=== PATIENT | female | born 1955 | race Caucasian/White ===

== ENCOUNTER 2020-02-02 19:58 | Inpatient (IN) | payer MEDICAID, SELFPAY ==
[2020-02-02 20:01] VITALS: BP 126/71; PULSE 104; RESP 32; TEMP 37.9; O2SAT 94; BMI 22.3
[2020-02-02 20:07] VITALS: BP 126/71; PULSE 105; RESP 32; TEMP 37.9; O2SAT 94
--- NOTE | 2020-02-02 20:07 | CM.ED ---
Social Work Responding to Stroke Alert. No family present. Dr. Funk inquiring about patient prior level of functioning. Patient noted to be a resident at [facility] in [place]. This psych social worker to call [facility] to obtain prior level of functioning. [facility] states that patient prior level of functioning is assist x1 for ambulating and is typically verbal. Xiomara states that patient was not verbal when leaving the correction to the ED and was noted to be weak on the right side. Xiomara states that patient family member, Mary is also aware and is coming to the ED. Updated Dr. Funk on above information. Mikaela Gates MSW, KASIE
[2020-02-02 20:10] VITALS: BMI 22.3
--- NOTE | 2020-02-02 20:20 | EKG12_ITS ---
Test Reason : STROKE Blood Pressure : / mmHG Vent. Rate : 105 BPM Atrial Rate : 105 BPM P-R Int : 126 ms QRS Dur : 086 ms QT Int : 304 ms P-R-T Axes : 054 082 151 degrees QTc Int : 401 ms Sinus tachycardia T wave abnormality, consider anterolateral ischemia Abnormal ECG Confirmed by FABIOLA KING ([id number]), associate editor SHIRLEY SOMERS ([id number]) on 02/07/2020 2:12:40 PM Referred By: SLOAN Confirmed By:FABIOLA KING
--- NOTE | 2020-02-02 20:20 | RAD_ITS ---
STUDY: X-RAY CHEST REASON FOR EXAM: Female, 64 years old. SUDDEN ONSET OF RIGHT SIDED FACIAL DROOP DECREASED VERBAL RESPONSE AND RIGHT SIDED WEAKNESS. TECHNIQUE: Single AP portable view of the chest. COMPARISON: None. FINDINGS: The lungs are clear and expanded. There is no demonstrated pleural abnormality. Normal size heart. Previous CABG. Pacemaker is seen with leads terminating in the right atrium and right ventricle.. Normal mediastinum and mag. Normal visualized pulmonary arteries. Normal visualized aortic arch and descending thoracic aorta. Normal visualized thoracic spine. Normal visualized ribs, clavicles, and shoulders. Limited visualization of the upper abdomen shows distended large bowel loops suggestive of ileus. RAD/Chest 1 View (Portable) IMPRESSION: No evidence for acute chest disease. Electronically Signed: Artem Bravo MD at 20:54 EDT , Service support ,
[2020-02-02 20:21] VITALS: BP 126/71; PULSE 101; RESP 34; TEMP 40; O2SAT 94
--- NOTE | 2020-02-02 20:21 | ED.DCSUM_ITS ---
History of Present Illness Chief Complaint: Neuro S/Sx Informant: Patient, Data Analysis Manager Onset: Days Current Severity: Mild Maximum Severity: Mild Narrative: The patient presents from nursing center with fatigue poor p.o. intake febrile illness all day, questionable right upper extremity worse than left upper extremity and facial droop There are concerns or information that she may have UTI, at baseline the patient is partially verbal she is almost full assist but can get up with walker The patient per assisted records has not tested positive for occult coronavirus nor has anyone at the center tested positive for coronavirus, it is not clear when the patient was last tested for coronavirus or the exact etiology of her febrile illness for a day or 2 Past Medical History - Allergies and Home Meds Allergies/Adverse Reactions: Allergies codeine Allergy (Verified 02/02/20 20:00) PT UNSURE OF REACTION diphenhydramine Allergy (Verified 02/02/20 20:00) PT UNSURE OF REACTION iodine Allergy (Verified 02/02/20 20:00) PT UNSURE OF REACTION Primary Care Physician: Dino Crenshaw MD [Primary Care Provider] - Past Medical History: - - He has multiple medical problems see above including cognitive decline Smoking Status: Unknown if ever smoked Review of Systems General: Reports: Fever. Denies: Chills, Sweats Eyes: Denies: Visual changes - bilaterally, Diplopia ENT: Denies: Rhinorrhea, Sore throat Cardiovascular: Denies: Chest pain, Palpitations Respiratory: Denies: Dyspnea, Cough, Dyspnea on exertion Gastrointestinal: Denies: Abdominal pain, Nausea, Vomiting, Diarrhea, Melena, Hematochezia Genitourinary: Denies: Dysuria, Hematuria, Frequency Musculoskeletal: Denies: Back pain, Extremity Pain Skin: Denies: Rash, Wounds Neurological: Denies: Headache, Weakness, Numbness Physical Exam Vital Signs/Narrative: Vital Signs Temp Pulse Resp BP Pulse Ox 02/02/20 20:07 100.2 F H 105 H 32 H 126/71 H 94 02/02/20 20:01 100.2 F H 104 H 32 H 126/71 H 94 General: Well nourished, Well developed, No Acute Distress, - - Patient is in no distress her temperature is 100.2 she is awake alert looking around the room she has no obvious facial droop her neck is supple her lungs are clear heart tones are unremarkable abdomen soft nontender she has able to hold both arms up without difficulty for the 5-second count, she cannot hold her legs up they both dropped immediately to the bed she apparently has history of lower extremity weakness and trouble walking she has no specific complaints of any kind abdomen chest unremarkable Head: Normocephalic, Atraumatic Eyes: Perrl, EOMI ENT: Moist mucous membranes, No rhinorrhea Neck: Supple, Nontender Cardiovascular: Regular rate, Regular rhythm, No murmurs Respiratory: No distress, CTA bilaterally, Chest nontender Abdomen: Soft, Nontender, Nondistended, Normal bowel sounds Back: Nontender, Normal Inspection Extremities: Nontender, No edema Skin: Normal color, No rash Neurological: Alert, Oriented x3, Cranial nerves II-XII grossly intact, Normal Strength, Normal Sensation Psychological: Normal affect, Normal Mood Diagnostic/Tx/Re-eval - Medical Decision Making Differential certainly extensive on this patient there is no obvious physical findings to suggest acute stroke she has had the fever for a day or 2 she was sent in because apparently she is less verbal and demonstrating more generalized weakness The patient's current temperature here in the emergency department is 104.0 IV fluids culture screening labs Given all the above screening labs will try determine when she was last tested for COVID COVID screen The assisted staff suggest that the fever began today, they do not recall when she was last tested for COVID but they report staff and other patients who have been tested always tested negative, they do report that the patient recently was treated for UTI due to discolored foul urine the nurse believes the antibiotics were stopped a few days ago, At this time given all the above the ED screen evaluation shows elevated white count, the urine shows subtle signs of UTI the chest X unremarkable, coronavirus screen is pending, she received IV fluids blood urine cultures IV antibiotics With the hospitalist they asked that a lactic acid level be obtained this was ordered they will check it and will arrange for admission to [facility] floor for further management Final impression febrile illness UTI generalized weakness, Admit stable ED Disposition - Plan for ED Patient: Diagnosis: Febrile illness UTI generalized weakness Referrals: Dino Crenshaw MD [Primary Care Provider] -
[2020-02-02] MEDS: 0.9% Normal Saline 1,000 ML 125 ML IV (20:25)
[2020-02-02] MEDS: Ceftriaxone 1 GM/50 ML BAG IV (20:28)
[2020-02-02 20:41] LABS: Mucous, Urine 0 SEEN /hpf (<or=2+); Red Blood Cells-Urine 0 SEEN /hpf (0-5); Squamous Epithelial Cells - UA 0 SEEN /hpf (5-10)
[2020-02-02 20:53] LABS: Absolute Lymphocyte Count 1.66 X10^3/uL (0.83-4.51); Absolute Neutrophil Count 13.5 X10^3/uL (2.0-7.7); Basophil# 0.06 X10^3/uL; Basophil% 0.4 % (0-1); Eosinophil# 0.04 X10^3/uL; Eosinophils% 0.3 % (0-5); Hematocrit 43.4 % (37-47); Hemoglobin 13.9 g/dL (12.0-15.0); Lymphocyte # 1.66 X10^3/ul (4.0); Lymphocyte % 10.5 % (19-41); Mean Corpuscular Hgb 27.9 pg (27.0-32.0); Mean Corpuscular Volume 87.1 fL (81-99); Monocyte# 0.52 X10^3/uL; Monocyte% 3.3 % (0-10); NRBC Flagged by Analyzer 0 % (0-5); Neutrophil % 84.9 % (47-70); Platelet Count 278 K/mm3 (150-450); RBC Distribution Width CV 14.6 % (11.6-14.6); RBC Distribution Width SD 46.4 fl (35.1-43.9); Red Blood Count 4.98 M/mm3 (4.2-5.4); White Blood Count 15.9 K/mm3 (4.4-11.0)
[2020-02-02 21:00] LABS: ALB/GLOB Ratio 0.8 RATIO (0.9-2.4); AST(SGOT) 14 U/L (15-37); Alanine Aminotransfer ALT/SGPT 20 U/L (13-56); Albumin, Serum 3.7 g/dL (3.2-5.0); Alkaline Phosphatase 113 U/L (45-117); Anion Gap 5 (5-15); BUN 27 mg/dL (7-18); BUN/Creat Ratio 18.4 RATIO (10-20); Bilirubin, Direct 0.17 mg/dL (0.00-0.30); Chloride 106 mmol/L (98-107); Creatinine, Serum 1.47 mg/dL (0.55-1.02); EST Glomerular Filtration Rate 38 mL/min (>60); Est Glom Filt Rate - Afr Amer 46 mL/min (>60); Estimated Creatinine Clearance 32.51 ml/min; Globulin 4.6 g/dL (2.2-4.2); Glucose 122 mg/dL (74-106); Lipase 83 U/L (73-393); Potassium 4.7 mmol/L (3.5-5.1); Protein, Total 8.3 g/dL (6.4-8.2); Sodium Level 135 mmol/L (136-145)
[2020-02-02 21:23] LABS: Color, Urine Yellow (Yellow); Glucose, Dipstick Normal (Normal); Ketone-Dipstick Negative (Negative); Leukocyte Esterase-Dipstick 25 /ul (Negative); Nitrite-Dipstick Negative (Negative); Occult Blood-Urine 10 /ul (Negative); Protein-Dipstick 15 mg/dl (Negative); Urine Bilirubin Dipstick Negative (Negative); Urine Clarity Sl. Cloudy (Clear); Urine Urobilinogen Normal (Normal)
[2020-02-02 21:42] LABS: Amorphous Sediment R; Bacteria 3+ /hpf (None Seen); White Blood Cells 5-10 SEEN /hpf (0-5)
--- NOTE | 2020-02-02 21:54 | HP.PCM_ITS ---
Problem List (1) Sepsis Status: Acute History of Present Illness Date of Admission: 02/02/20 Chief Complaint: fever The patient is a 64 year old F who lives at a fpc with a significant history of congestive heart failure who presents to the emergency department with fever. Reportedly his temperature at the fpc was 102 Fahrenheit. Also it was reported that patient had right-sided facial droop; right-sided weakness and decreased verbal response .Emergency department doctor and nurses who saw patient at emergency department denies noticing right-sided facial droop; and right-sided weakness Reportedly patient at baseline patient is partially verbal but she has become more nonverbal with the onset of her febrile illness. Also reportedly she is weak and fatigue. Coronavirus test done previously was negative. Reportedly residents at the [facility] where she lives at has tested negative for the coronavirus. Her urine was found to be abnormal at emergency department. Further, at the ED, she had a fever with a T-max of 104F and tachycardia as well as tachypnea. A stroke alert was initially called at emergency department but it was canceled. Past Medical History Medical History: Medical History (Last Reviewed 02/03/20 @ 03:[address] Guru Kendrick MD) Congestive heart failure I50.9 Allergies codeine Allergy (Verified 02/02/20 20:00) PT UNSURE OF REACTION diphenhydramine Allergy (Verified 02/02/20 20:00) PT UNSURE OF REACTION iodine Allergy (Verified 02/02/20 20:00) PT UNSURE OF REACTION Home Medications: Ambulatory Orders Medication Instructions Recorded Acetaminophen [Tylenol Extra 500 mg PO Q6H PRN PRN 02/02/20 Strength] Aspirin E.C. [Ecotrin] 81 mg PO DAILY@0800 02/02/20 Atorvastatin Calcium [Lipitor] 40 mg PO QHS 02/02/20 Baclofen 10 mg PO Q8H PRN PRN 02/02/20 Carvedilol [Coreg] 12.5 mg PO BIDCM 02/02/20 Cetirizine HCl [Zyrtec] 10 mg PO QHS 02/02/20 Docusate Sodium [Colace] 100 mg PO BID 02/02/20 Fluticasone 44 Mcg [Flovent (SP)] 2 puff INHALATION BID 02/02/20 Furosemide [Lasix] 20 mg PO DAILY 02/02/20 Guaifenesin [Mucinex] 600 mg PO BID 02/02/20 Mirtazapine [Remeron] 15 mg PO QHS 02/02/20 Oxybutynin [Ditropan] 5 mg PO TID 02/02/20 Pantoprazole Sodium [Protonix] 20 mg PO DAILY 02/02/20 Spironolactone [Aldactone] 25 mg PO DAILY 02/02/20 Venlafaxine HCl [Venlafaxine HCl 150 mg PO DAILY 02/02/20 ER] Albuterol Sulfate [Ventolin Hfa] 2 puff INHALATION Q6H PRN 02/03/20 Cepacol Sore Throat Lozenge 1 uyen PO Q2H PRN 02/03/20 Surgical History: pacemaker implantation - ICD placement, tonsillectomy, - - Tubal ligation; mitral valve prolapse operation; double bypass. Smoking Status: Former smoker - *Family History Maternal History Items: - - Unable to obtain since patient is confused. Paternal History Items: - - Unable to obtain since patient is confused. Review of Systems Unable to obtain accurate/complete ROS d/t: confusion. History was taken from ED doc and nurses VTE Information - Inpt Only VTE Present on Admission: No VTE Mechan Device Prophylaxis: None VTE Pharm Prophylaxis ordered?: Yes Patient Problems: Active and Suspected Problems (Last Reviewed 02/03/20 @ 03:[address] Guru Kendrick MD) Sepsis (Acute) - Physical Exam Vitals/I&O's: Vital Signs Temp Pulse Resp BP Pulse Ox 104.0 F H 101 H 34 H 126/71 H 94 02/02/20 20:21 02/02/20 20:21 02/02/20 20:21 02/02/20 20:21 02/02/20 20:21 Oxygen Delivery Method Room Air Weight: 58.9 kg Body Mass Index (BMI) 22.3 Finger Stick Blood Glucose 161 Intake and Output for Last 24 Hours 01/31/20 02/01/20 02/02/20 23:59 23:59 23:59 Intake Total 50 / 50 Balance 50 / 50 General: Alert, Confused - Patient knows her date of . But she is unable to explain why she is at the hospital., - HEENT: Atraumatic, PERRLA, EOMI, Normocephalic Neck: Supple, Trachea Midline Lungs: Clear to auscultation, Normal air movement, No rhonchi, No wheeze, No rales Cardiovascular: No murmurs, Tachycardic, - - Diminished Abdomen: Soft, Non Tender, Hypoactive Bowel Sounds, - - Globular Extremities: Capillary Refill Less than 3 Seconds, Edema - Right ankle Skin: No rashes, No breakdown Musculoskeletal: No Tenderness to Palpation of Joints or Extremities Neurological: Deep Tendon Reflexes 2+/4 and Symmetrical, Motor Exam 5/5 strength throughout, - - Can do [id number] test bilateral. The patient did not initiate [id number] test although she was instructed. Psych/Mental Status: Flat Affect Laboratory Results 02/02/20 20:03: WBC 15.9 H, RBC 4.98, Hgb 13.9, Hct 43.4, MCV 87.1, MCH 27.9, MCHC 32.0, RDW Std Deviation 46.4 H, RDW Coeff of Frantz 14.6, Plt Count 278, MPV 12.0, Immature Gran % (Auto) 0.600, Neut % (Auto) 84.9 H, Lymph % (Auto) 10.5 L, [place] % (Auto) 3.3, Eos % (Auto) 0.3, Baso % (Auto) 0.4, Absolute Neuts (auto) 13.5 H, Absolute Lymphs (auto) 1.66, Nucleated RBC % 0 02/02/20 20:03: Sodium 135 L, Potassium 4.7, Chloride 106, Carbon Dioxide 24.0, Anion Gap 5, BUN 27 H, Creatinine 1.47 H, Estim Creat Clear Calc 32.51, Est GFR (MDRD) Af Amer 46 L, Est GFR (MDRD) Non-Af 38 L, BUN/Creatinine Ratio 18.4, Glucose 122 H, Calcium 9.0, Total Bilirubin 0.60, Direct Bilirubin 0.17, AST 14 L, ALT 20, Alkaline Phosphatase 113, Total Protein 8.3 H, Albumin 3.7, Globulin 4.6 H, Albumin/Globulin Ratio 0.8 L, Lipase 83 02/02/20 20:15: Urine Color Yellow, Urine Clarity Sl. Cloudy, Urine pH 8.0, Ur Specific [place] 1.010, Urine Protein 15 H, Urine Glucose (UA) Normal, Urine Ketones Negative, Urine Occult Blood 10 H, Urine Nitrite Negative, Urine Bilirubin Negative, Urine Urobilinogen Normal, Ur Leukocyte Esterase 25 H, Urine RBC 0 SEEN, Urine WBC 5-10 SEEN, Ur Squamous Epith Cells 0 SEEN, Amorphous Sediment R, Urine Bacteria 3+, Urine Mucus 0 SEEN 02/02/20 20:46: COVID-19 (ELANA) Pending Current Medications Sodium Chloride () 1,000 mls @ 125 mls/hr IV .Q8H [facility] Last Admin: 02/02/20 20:25 Dose: 125 mls/hr Documented by: Sodium Chloride () 500 mls @ 999 mls/hr IV .Q31M [facility] Stop: 02/02/20 22:30 Assessment/Plan All Active Problems (Last Reviewed 02/03/20 @ 03:[address] Guru Kendrick MD) Sepsis (Acute) The patient is a 64 year old F who lives at a fpc with a significant history of congestive heart failure who presents to the emergency department with fever; altered mental status; was found to have a temperature of 104 Fahrenheit at emergency department; tachycardia; tachypnea and with abnormal urinalysis. Acute encephalopathy secondary to sepsis from acute cystitis Sirs criteria: White count of 15.9; T-max of 104 Fahrenheit; tachycardia with maximum heart rate of 105; tachypnea with much more respiratory rate rate of 34. Received ceftriaxone at emergency department Ceftriaxone ordered for inpatient. Received IV fluids in emergency department. Blood cultures ordered. Follow urine cultures ordered emergency department. Lactic acid ordered. Trend CBC GAIL Patient's creatinine was 1.47. From [facility]: Creatinine on 01-28-20 was 1.11; and on 08/14/2019 his creatinine was 1.65. Creatinine on 06/24/2019 was 1.16. BUN is 27. BUN over creatinine is 18.4. Received IV fluid bolus at emergency department; and then was started on maintenance infusion. Because of a history of congestive heart failure will hold off further IV fluids. We will hold off Lasix and spironolactone. Consider resuming Lasix and spironolactone when creatinine is stable. Trend BMP and make further determinations. History of congestive heart failure (combined systolic and diastolic heart failure) Per community records: Cardiology progress notes (Dr. Sylvia Wu) on 06/24/2019-patient's ejection fraction is in the 30s. On Lasix and spironolactone at the half-way. Hold at this time secondary to GAIL Coreg continued. Blood pressure parameters and heart rate parameters placed. ICD in place. DVT prophylaxis Subcutaneous heparin. Inpatient E&M: 63656 Init Hosp L3
--- NOTE | 2020-02-02 22:06 | ED.RN ---
SPOKE WITH DAUGHTER AND GAVE HER AN UPDATE ON PT MEDICAL CONDITION AND STATUS. DID NOT HAVE A ROOM ASSIGNMENT AT THE TIME OF CALL. SHE STATES SHE WILL CALL THE HOSPITAL IN THE MORNING TO FIND OUT MORE INFORMATION
[2020-02-02 22:28] LABS: Lactic Acid 1.2 mmol/L (0.4-1.9)
[2020-02-02] MEDS: Acetaminophen 500 MG Tablet 1000 MG PO (23:06)
[2020-02-02 23:13] VITALS: BP 115/64; PULSE 88; RESP 33; TEMP 38.9; O2SAT 97
[2020-02-02 23:39] LABS: Lactic Acid 1.3 mmol/L (0.4-1.9)
[2020-02-03] VITALS (10 sets, daily range): BP systolic 89–110; BP diastolic 41–68; PULSE 59–84; RESP 17–29; TEMP 36.8–38.3; O2SAT 94–97; BMI 20.5
[2020-02-03] MEDS: Oxybutynin 5 MG Tablet PO ×3 (05:11→21:08)
[2020-02-03] MEDS: Heparin Injection (Vial) 5,000 UNIT/ML VIAL 5000 UNIT SC ×3 (05:11→21:07)
[2020-02-03 06:28] LABS: Absolute Lymphocyte Count 2.55 X10^3/uL (0.83-4.51); Absolute Neutrophil Count 15.9 X10^3/uL (2.0-7.7); Basophil# 0.08 X10^3/uL; Basophil% 0.4 % (0-1); Eosinophil# 0.05 X10^3/uL; Eosinophils% 0.2 % (0-5); Hematocrit 38.2 % (37-47); Hemoglobin 11.8 g/dL (12.0-15.0); Lymphocyte # 2.55 X10^3/ul (4.0); Lymphocyte % 12.7 % (19-41); Mean Corp Hgb Conc 30.9 g/dL (32-36); Mean Corpuscular Hgb 27.9 pg (27.0-32.0); Mean Corpuscular Volume 90.3 fL (81-99); Mean Platelet Vol. 11.9 fl (6.2-12.0); Monocyte# 1.33 X10^3/uL; Monocyte% 6.6 % (0-10); NRBC Flagged by Analyzer 0 % (0-5); Neutrophil # 15.87 X10^3/uL (2.7-7.7); Neutrophil % 79.4 % (47-70); Platelet Count 226 K/mm3 (150-450); RBC Distribution Width SD 48.8 fl (35.1-43.9); Red Blood Count 4.23 M/mm3 (4.2-5.4)
[2020-02-03 06:54] LABS: Anion Gap 8 (5-15); BUN 27 mg/dL (7-18); BUN/Creat Ratio 23.1 RATIO (10-20); Calcium,Total 8.1 mg/dL (8.5-10.1); Chloride 108 mmol/L (98-107); Creatinine, Serum 1.17 mg/dL (0.55-1.02); EST Glomerular Filtration Rate 49 mL/min (>60); Est Glom Filt Rate - Afr Amer 59 mL/min (>60); Estimated Creatinine Clearance 42.93 ml/min; Glucose 133 mg/dL (74-106); Sodium Level 136 mmol/L (136-145)
[2020-02-03] MEDS: Budesonide Respules 0.5 MG/2 ML AMPUL.NEB. INHALATION ×2 (07:16→19:35)
[2020-02-03] MEDS: Carvedilol 12.5 MG Tablet PO (09:40)
[2020-02-03] MEDS: Docusate Sodium 100 MG Capsule PO ×2 (09:41→21:07)
[2020-02-03] MEDS: Acetaminophen 325 MG Tablet 650 MG PO ×2 (09:41→21:07)
[2020-02-03] MEDS: Pantoprazole Sodium 20 MG Tablet PO (09:41)
[2020-02-03] MEDS: Aspirin E.C. 81 MG Tablet PO (09:41)
[2020-02-03] MEDS: Venlafaxine XR 150 MG Capsule PO (09:42)
--- NOTE | 2020-02-03 10:51 | CASEMGMT ---
Addendum entered by Samantha Santos 02/03/20 14:13: SW also placed COVID screening tool on pt's chart. Addendum entered by Samantha Santos 02/03/20 11:02: SW also placed a call to pt's daughter November. November confirms pt is from [place] and will be returning at discharge. Original Note: Social Work Note Pt is listed as being from [place]. RAMANDEEP placed a call to Yosvany at [place]. 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 RAMANDEEP faxed updated clinicals to [place]. SW in to speak with pt. SW introduced self and role at [facility]. Pt is alert and orientated x3. Pt confirms that she is from [place], states he has been there since June and plans to return at discharge. Green sheet and transport form on pt's chart. Plan: Return to [place] once medically cleared Samantha Santos MSW, DRAFTER TOPOGRAPHICAL
[2020-02-03] MEDS: 0.9% Normal Saline 1,000 ML 100 ML IV ×2 (13:19→23:41)
[2020-02-03] MEDS: 0.9% Saline Lock 10 ML Syringe IV (13:19)
--- NOTE | 2020-02-03 16:29 | PN_ITS ---
Patient Problems: Active and Suspected Problems (Last Reviewed 02/03/20 @ 03:[address] Guru Kendrick MD) Sepsis (Acute) Subjective: Patient was seen and examined today, I talked briefly with a nurse at her detention facility to get some information about the patient's medical history. Patient has been a resident in a detention facility since last June due to inability of the patient to take care of her self. The source at the care home told me that the patient is shown signs of increased cognitive impairment over the last several weeks, for the most part she can respond appropriately but her memory is poor at times. Patient's blood pressure is been low today and her oral intake has been sparse, I decided to place the patient on IV fluids today and hold her diuretics. Patient's last elevated temperature was at 0041 this morning. Patient has no complaints of any shortness of breath or fever to this examiner. - Physical Exam Vitals/I&O's: Vital Signs Temp Pulse Resp BP Pulse Ox 98.4 F 59 L 20 H 94/41 L 96 02/03/20 15:18 02/03/20 15:18 02/03/20 15:18 02/03/20 15:18 02/03/20 15:18 Oxygen Flow Rate (L/min) 1.5 Oxygen Delivery Method Room Air Weight: 57.5 kg Body Mass Index (BMI) 20.5 Finger Stick Blood Glucose 161 Intake and Output for Last 24 Hours 02/01/20 02/02/20 02/03/20 23:59 23:59 23:59 Intake Total 550 / 550 1467.92 / 1467.92 Output Total 875 / 875 Balance 550 / 550 592.92 / 592.92 General: Alert, Oriented x3, Cooperative, No apparent distress, Well developed HEENT: Atraumatic, PERRLA, EOMI, Normocephalic Oral: Moist Mucosa Neck: Supple, No JVD, Trachea Midline, Thyroid Normal Size and Texture Lungs: Clear to auscultation, Normal air movement Cardiovascular: Regular rate, Regular Rhythm, Normal S1, Normal S2, No murmurs, PMI Normal Abdomen: Bowel Sounds Present, Soft, Non Tender, Non-Distended Extremities: No clubbing, No cyanosis, No edema, Capillary Refill Less than 3 Seconds Skin: No rashes, No breakdown Neurological: Cranial nerves II-XII grossly intact, Neuro grossly intact, Sensory exam intact to light touch and pain, Coordination normal Psych/Mental Status: Appropriate, Flat Affect, Alert and oriented to time, place, person, mood and affect Microbiology Past 72 Hours 02/02/20 20:15 Urine Catheter - Catheter Urine Culture - Preliminary Gram negative kb Laboratory Results 02/02/20 20:03: WBC 15.9 H, RBC 4.98, Hgb 13.9, Hct 43.4, MCV 87.1, MCH 27.9, MCHC 32.0, RDW Std Deviation 46.4 H, RDW Coeff of Rfantz 14.6, Plt Count 278, MPV 12.0, Immature Gran % (Auto) 0.600, Neut % (Auto) 84.9 H, Lymph % (Auto) 10.5 L, [place] % (Auto) 3.3, Eos % (Auto) 0.3, Baso % (Auto) 0.4, Absolute Neuts (auto) 13.5 H, Absolute Lymphs (auto) 1.66, Nucleated RBC % 0 02/02/20 20:03: Sodium 135 L, Potassium 4.7, Chloride 106, Carbon Dioxide 24.0, Anion Gap 5, BUN 27 H, Creatinine 1.47 H, Estim Creat Clear Calc 32.51, Est GFR (MDRD) Af Amer 46 L, Est GFR (MDRD) Non-Af 38 L, BUN/Creatinine Ratio 18.4, Glucose 122 H, Calcium 9.0, Total Bilirubin 0.60, Direct Bilirubin 0.17, AST 14 L, ALT 20, Alkaline Phosphatase 113, Total Protein 8.3 H, Albumin 3.7, Globulin 4.6 H, Albumin/Globulin Ratio 0.8 L, Lipase 83 02/02/20 20:03: Lactic Acid 1.2 02/02/20 20:15: Urine Color Yellow, Urine Clarity Sl. Cloudy, Urine pH 8.0, Ur Specific [place] 1.010, Urine Protein 15 H, Urine Glucose (UA) Normal, Urine Ketones Negative, Urine Occult Blood 10 H, Urine Nitrite Negative, Urine Bilirubin Negative, Urine Urobilinogen Normal, Ur Leukocyte Esterase 25 H, Urine RBC 0 SEEN, Urine WBC 5-10 SEEN, Ur Squamous Epith Cells 0 SEEN, Amorphous Sediment R, Urine Bacteria 3+, Urine Mucus 0 SEEN 02/02/20 20:46: COVID-19 (ELANA) Not Detected 02/02/20 23:05: Lactic Acid 1.3 02/03/20 05:54: WBC 20.0 H, RBC 4.23, Hgb 11.8 L, Hct 38.2, MCV 90.3, MCH 27.9, MCHC 30.9 L, RDW Std Deviation 48.8 H, RDW Coeff of Frantz 15.0 H, Plt Count 226, MPV 11.9, Immature Gran % (Auto) 0.700, Neut % (Auto) 79.4 H, Lymph % (Auto) 12. 7 L, [place] % (Auto) 6.6, Eos % (Auto) 0.2, Baso % (Auto) 0.4, Absolute Neuts (auto) 15.9 H, Absolute Lymphs (auto) 2.55, Nucleated RBC % 0 02/03/20 05:54: Sodium 136, Potassium 4.0, Chloride 108 H, Carbon Dioxide 20.0 L , Anion Gap 8, BUN 27 H, Creatinine 1.17 H, Estim Creat Clear Calc 42.93, Est GFR (MDRD) Af Amer 59 L, Est GFR (MDRD) Non-Af 49 L, BUN/Creatinine Ratio 23.1 H , Glucose 133 H, Calcium 8.1 L Current Medications Acetaminophen (Tylenol) 650 mg PO Q6H PRN PRN PRN Reason: Pain Score 1-10/Temp > 100.7 F Last Admin: 02/03/20 09:41 Dose: 650 mg Documented by: Aspirin (Ecotrin) 81 mg PO DAILY@0800 [facility] Last Admin: 02/03/20 09:41 Dose: 81 mg Documented by: Atorvastatin Calcium (Lipitor) 40 mg PO QHS [facility] Baclofen (Lioresal) 10 mg PO Q8H PRN PRN PRN Reason: Pain or Fever Budesonide (Pulmicort Aerosol) 0.5 mg INHALATION Q12H.RT [facility] Last Admin: 02/03/20 07:16 Dose: 0.5 mg Documented by: Carvedilol (Coreg) 12.5 mg PO BIDCM [facility] Last Admin: 02/03/20 15:53 Dose: Not Given Documented by: Dextrose (D50w Syringe) 0 gm IV X1 PRN; Protocol PRN Reason: Hypoglycemia Docusate Sodium (Colace) 100 mg PO BID [facility] Last Admin: 02/03/20 09:41 Dose: 100 mg Documented by: Glucagon () 1 mg IM .X1 PRN PRN Reason: Hypoglycemia Heparin Sodium (Porcine) (Heparin Na) 5,000 unit SC Q8 [facility] Last Admin: 02/03/20 15:29 Dose: 5,000 unit Documented by: Ceftriaxone Sodium (Rocephin) 1 gm in 50 mls @ 100 mls/hr IV Q24H [facility] Sodium Chloride () 250 mls @ 15 mls/hr IV .[id number] PRN PRN Reason: Saline Flush Sodium Chloride () 250 mls @ 15 mls/hr IV .[id number] PRN PRN Reason: Additional IVPB Infusion Sodium Chloride () 1,000 mls @ 100 mls/hr IV .Q10H [facility] Last Admin: 02/03/20 13:19 Dose: 100 mls/hr Documented by: Loratadine (Claritin) 10 mg PO QHS [facility] Mirtazapine (Remeron) 15 mg PO QHS [facility] Nutritional Formula (Lactose Free) (Ensure Enlive) 120 ml PO 4X/DAY [facility] Last Admin: 02/03/20 15:28 Dose: 120 ml Documented by: Ondansetron HCl (Zofran) 4 mg IV Q8H PRN PRN PRN Reason: NAUSEA/VOMITING Oxybutynin Chloride (Ditropan) 5 mg PO TID [facility] Last Admin: 02/03/20 15:29 Dose: 5 mg Documented by: Pantoprazole Sodium (Protonix) 20 mg PO DAILY [facility] Last Admin: 02/03/20 09:41 Dose: 20 mg Documented by: Sodium Chloride () 10 - 40 ml IV UD PRN PRN Reason: SALINE FLUSH Last Admin: 02/03/20 13:19 Dose: 10 ml Documented by: Venlafaxine HCl (Effexor Xr) 150 mg PO DAILY [facility] Last Admin: 02/03/20 09:42 Dose: 150 mg Documented by: Medical Necessity - Tobacco Use Smoking Status: Unknown if ever smoked Assessment/Plan All Active Problems (Last Reviewed 02/03/20 @ 03:[address] Guru Kendrick MD) Sepsis (Acute) #1 acute sepsis secondary to acute cystitis-patient will remain on Rocephin, urine culture is pending, recheck labs in the morning #2 ischemic cardiomyopathy #3 chronic kidney disease by history-it appears that the patient's baseline creatinine may be close to 1.1 according to notations in her medical record, I believe the patient may be slightly dehydrated, again she will be given fluids and her diuretics will be held. #4 chronic depression-patient is currently on antidepressants #5 atherosclerotic heart disease #6 generalized debility-etiology unclear #7 chronic obstructive lung disease #8 hyperlipidemia Inpatient E&M: 43597 Subs Hosp L2
[2020-02-03] MEDS: Ceftriaxone 1 GM/50 ML BAG IV (21:07)
[2020-02-03] MEDS: Mirtazapine 15 MG Tablet PO (21:08)
[2020-02-03] MEDS: Atorvastatin Calcium 40 MG Tablet PO (21:08)
[2020-02-04 03:20] VITALS: BP 112/64; PULSE 70; RESP 17; TEMP 36.9; O2SAT 93
[2020-02-04] MEDS: Oxybutynin 5 MG Tablet PO (05:09)
[2020-02-04] MEDS: Heparin Injection (Vial) 5,000 UNIT/ML VIAL 5000 UNIT SC (05:09)
[2020-02-04 06:39] LABS: Absolute Neutrophil Count 6.1 X10^3/uL (2.0-7.7); Basophil# 0.03 X10^3/uL; Basophil% 0.3 % (0-1); Eosinophil# 0.27 X10^3/uL; Eosinophils% 2.7 % (0-5); Hematocrit 32.5 % (37-47); Hemoglobin 9.9 g/dL (12.0-15.0); Mean Corp Hgb Conc 30.5 g/dL (32-36); Mean Corpuscular Hgb 28.2 pg (27.0-32.0); Mean Corpuscular Volume 92.6 fL (81-99); Monocyte# 0.54 X10^3/uL; Monocyte% 5.4 % (0-10); NRBC Flagged by Analyzer 0 % (0-5); Neutrophil # 6.13 X10^3/uL (2.7-7.7); Neutrophil % 61.2 % (47-70); Platelet Count 183 K/mm3 (150-450); RBC Distribution Width SD 50.2 fl (35.1-43.9); Red Blood Count 3.51 M/mm3 (4.2-5.4)
[2020-02-04 07:06] LABS: Anion Gap 5 (5-15); BUN 26 mg/dL (7-18); BUN/Creat Ratio 27.9 RATIO (10-20); Calcium,Total 7.5 mg/dL (8.5-10.1); Chloride 118 mmol/L (98-107); Creatinine, Serum 0.93 mg/dL (0.55-1.02); EST Glomerular Filtration Rate 64 mL/min (>60); Est Glom Filt Rate - Afr Amer 77 mL/min (>60); Estimated Creatinine Clearance 54.01 ml/min; Glucose 83 mg/dL (74-106); Potassium 3.9 mmol/L (3.5-5.1); Sodium Level 144 mmol/L (136-145)
[2020-02-04] MEDS: Budesonide Respules 0.5 MG/2 ML AMPUL.NEB. INHALATION (07:07)
[2020-02-04 07:08] VITALS: PULSE 62; RESP 18; O2SAT 92
[2020-02-04] MEDS: Docusate Sodium 100 MG Capsule PO (08:16)
[2020-02-04] MEDS: Aspirin E.C. 81 MG Tablet PO (08:16)
[2020-02-04] MEDS: Venlafaxine XR 150 MG Capsule PO (08:16)
[2020-02-04] MEDS: Pantoprazole Sodium 20 MG Tablet PO (08:16)
[2020-02-04] MEDS: Carvedilol 12.5 MG Tablet PO (08:16)
[2020-02-04 09:20] VITALS: BP 102/52; PULSE 69; RESP 18; TEMP 37.4; O2SAT 92
--- NOTE | 2020-02-04 09:22 | TREXTCAR_ITS ---
- Diet 02/03/20 00:56 Diet: Regular Diet Food consistency:: Regular Liquid Consistency:: Regular/Thin - Routine Orders/Code Status Code Status: Full Code - Suggestions for Active Care Change Position every (hours): 3 Hours to sit in a chair: 2 Times a day to sit in chair: 3 - Therapies Weight Bearing: Weight bearing as tolerated Physical Therapy: Eval and Treat Occupational Therapy: Eval and Treat - Allergies/Procedures Done in Hospital Allergies/Adverse Reactions: Allergies codeine Allergy (Verified 02/02/20 20:00) PT UNSURE OF REACTION diphenhydramine Allergy (Verified 02/02/20 20:00) PT UNSURE OF REACTION iodine Allergy (Verified 02/02/20 20:00) PT UNSURE OF REACTION - Type of Care/Length of Stay Estimated LOS: Convalescent Care Less Than 30 days Type of Care Needed: Skilled Rehab Potential: Good Prognosis: Good - Additional Orders/Day of Discharge H&P will serve as current which was dated: 02/02/20 Day of Discharge: 02/04/20 - Dietary and Speech Recommendations Dietitian Recommendations/Changes: Continue regular diet until adequate PO inta ke is established; then recommend cardiac diet d/t PMH of CHF. Will provide Ensure Enlive 120mL 4x/day d/t decreased PO intake and history of supplement consumption at home. - Follow Up Care Primary Care Physician: Dino Crenshaw MD [Primary Care Provider] - Please follow up with your Primary Care Physician in: 1-2 weeks.
[2020-02-04 09:23] VITALS: BP 102/52; PULSE 69; RESP 18; TEMP 37.4; O2SAT 92
--- NOTE | 2020-02-04 10:59 | PCM.DC.SUM ---
Discharge Date and Diagnosis - Problem List Patient Problems: Active and Suspected Problems (Last Reviewed 02/03/20 @ 03:[address] Guru Kendrick MD) Sepsis (Acute) Date of Admission: 02/02/20 Date of Discharge: 02/04/20 - Primary Discharge Diagnosis Acute Problems: Active Problems (Last Reviewed 02/03/20 @ 03:[address] Guru Kendrick MD) #1 Proteus mirabilis acute cystitis. #2 sepsis. Hospital Course and Treatment Imaging Results: Clinical Impression(s) from Imaging Studies Chest X-Ray 02/02/20 20:20 IMPRESSION: No evidence for acute chest disease. Electronically Signed: Artem Bravo MD at 20:54 EDT , Service support , Operations: None Procedures: None Summary of Care Provided: Patient seen and examined on the day of discharge and to be to be stable to be discharged back to the [facility]. She denied any complaints. Denied abdominal pain, nausea or vomiting. She has been afebrile. Her vital signs are stable. The patient is a 64 year old F presented to the emergency room because of fever, weakness and she was found to have sepsis secondary to acute cystitis. On admission, patient was found to have leukocytosis, creatinine of 1.47 in context of history of chronic kidney disease. She was found to have sepsis secondary to acute cystitis. Urinalysis revealed cloudy urine, there was 5-10 WBCs and 3+ bacteria. Chest x-ray showed no acute findings. COVID-19 PCR done and was negative. Patient was treated with IV Rocephin and IV fluids for acute cystitis. With treatment, her symptoms improved and she felt significantly better. She remained afebrile. Urine culture revealed Proteus mirabilis which was sensitive to Rocephin. Blood culture showed no growth up to the time of discharge. Patient discharged back to the retirement in a stable medical condition, discharged on ciprofloxacin 500 p.o. twice daily to complete total of 5 days of treatment, continued on her previous home medications without any changes, recommended 12 with PCP in 1 to 2 weeks. Patient Problems: Active and Suspected Problems (Last Reviewed 02/03/20 @ 03:[address] Guru Kendrick MD) Sepsis (Acute) - Physical Exam Vitals/I&O's: Vital Signs Temp Pulse Resp BP Pulse Ox 99.4 F H 69 18 102/52 L 92 02/04/20 09:20 02/04/20 09:20 02/04/20 09:20 02/04/20 09:20 02/04/20 09:20 Oxygen Flow Rate (L/min) 1.5 Oxygen Delivery Method Room Air Weight: 126 lb 12.253 oz Body Mass Index (BMI) 20.5 Finger Stick Blood Glucose 161 Intake and Output for Last 24 Hours 02/02/20 02/03/20 02/04/20 23:59 23:59 23:59 Intake Total 550 / 550 2504.59 / 2754.59 450 / 450 Output Total 875 / 1425 1175 / 1175 Balance 550 / 550 1629.59 / 1329.59 -725 / -725 General: Alert, Oriented x3, Cooperative, No apparent distress HEENT: Atraumatic, PERRLA, EOMI, Normocephalic Oral: Moist Mucosa, No Gingival or Mucosal Lesions/ Ulcerations Neck: Supple, No JVD, Negative Carotid Bruits, Trachea Midline, Thyroid Normal Size and Texture Lungs: Clear to auscultation, Normal air movement, No rhonchi, No wheeze, No rales Cardiovascular: Regular rate, Regular Rhythm, Normal S1, Normal S2, PMI Normal Abdomen: Bowel Sounds Present, Soft, Non Tender, Non-Distended, No Hepato-splenomegaly Extremities: No clubbing, No cyanosis, No edema Skin: No rashes, No breakdown Lymphatic: No Cervical, Supraclavicular, or Inguinal Adenopathy Neurological: Cranial nerves II-XII grossly intact, Neuro grossly intact Psych/Mental Status: Normal Affect, Appropriate Microbiology Past 72 Hours 02/02/20 20:15 Urine Catheter - Catheter Urine Culture - Final Proteus mirabilis Laboratory Results 02/04/20 06:16: WBC 10.0, RBC 3.51 L, Hgb 9.9 L, Hct 32.5 L, MCV 92.6, MCH 28.2, MCHC 30.5 L, RDW Std Deviation 50.2 H, RDW Coeff of Frantz 15.0 H, Plt Count 183, MPV 12.0, Immature Gran % (Auto) 0.400, Neut % (Auto) 61.2, Lymph % (Auto) 30.0, Dukes % (Auto) 5.4, Eos % (Auto) 2.7, Baso % (Auto) 0.3, Absolute Neuts (auto) 6.1, Absolute Lymphs (auto) 3.00, Nucleated RBC % 0 02/04/20 06:16: Sodium 144, Potassium 3.9, Chloride 118 H, Carbon Dioxide 21.0, Anion Gap 5, BUN 26 H, Creatinine 0.93, Estim Creat Clear Calc 54.01, Est GFR (MDRD) Af Amer 77, Est GFR (MDRD) Non-Af 64, BUN/Creatinine Ratio 27.9 H, Glucose 83, Calcium 7.5 L Current Medications Acetaminophen (Tylenol) 650 mg PO Q6H PRN PRN PRN Reason: Pain Score 1-10/Temp > 100.7 F Last Admin: 02/03/20 21:07 Dose: 650 mg Documented by: Aspirin (Ecotrin) 81 mg PO DAILY@0800 [facility] Last Admin: 02/04/20 08:16 Dose: 81 mg Documented by: Atorvastatin Calcium (Lipitor) 40 mg PO QHS [facility] Last Admin: 02/03/20 21:08 Dose: 40 mg Documented by: Baclofen (Lioresal) 10 mg PO Q8H PRN PRN PRN Reason: Pain or Fever Budesonide (Pulmicort Aerosol) 0.5 mg INHALATION Q12H.RT [facility] Last Admin: 02/04/20 07:07 Dose: 0.5 mg Documented by: [facility] Admin: 02/04/20 08:16 Dose: 12.5 mg Documented by: Docusate Sodium (Colace) 100 mg PO BID [facility] Last Admin: 02/04/20 08:16 Dose: 100 mg Documented by: Heparin Sodium (Porcine) (Heparin Na) 5,000 unit SC Q8 [facility] Last Admin: 02/04/20 05:09 Dose: 5,000 unit Documented by: Ceftriaxone Sodium (Rocephin) 1 gm in 50 mls @ 100 mls/hr IV Q24H [facility] Last Infusion: 02/03/20 21:37 Dose: Infused Documented by: Sodium Chloride () 250 mls @ 15 mls/hr IV .[id number] PRN PRN Reason: Saline Flush Sodium Chloride () 250 mls @ 15 mls/hr IV .[id number] PRN PRN Reason: Additional IVPB Infusion Sodium Chloride () 1,000 mls @ 100 mls/hr IV .Q10H [facility] Last Admin: 02/03/20 23:41 Dose: 100 mls/hr Documented by: Mirtazapine (Remeron) 15 mg PO QHS [facility] Last Admin: 02/03/20 21:08 Dose: 15 mg Documented by: Nutritional Formula (Lactose Free) (Ensure Enlive) 120 ml PO 4X/DAY [facility] Last Admin: 02/04/20 08:16 Dose: 120 ml Documented by: Ondansetron HCl (Zofran) 4 mg IV Q8H PRN PRN PRN Reason: NAUSEA/VOMITING Oxybutynin Chloride (Ditropan) 5 mg PO TID [facility] Last Admin: 02/04/20 05:09 Dose: 5 mg Documented by: Pantoprazole Sodium (Protonix) 20 mg PO DAILY [facility] Last Admin: 02/04/20 08:16 Dose: 20 mg Documented by: Sodium Chloride () 10 - 40 ml IV UD PRN PRN Reason: SALINE FLUSH Last Admin: 02/03/20 13:19 Dose: 10 ml Documented by: Venlafaxine HCl (Effexor Xr) 150 mg PO DAILY [facility] Last Admin: 02/04/20 08:16 Dose: 150 mg Documented by: Home Medications: Medications to take at Discharge Acetaminophen [Tylenol] 500 mg PO Q6H PRN PRN 02/02/20 Aspirin E.C. [Ecotrin] 81 mg PO DAILY@0800 02/02/20 Atorvastatin Calcium [Lipitor] 40 mg PO QHS 02/02/20 Baclofen 10 mg PO Q8H PRN PRN 02/02/20 Carvedilol [Coreg] 12.5 mg PO BIDCM 02/02/20 Cetirizine HCl [Zyrtec] 10 mg PO QHS 02/02/20 Docusate Sodium [Colace] 100 mg PO BID 02/02/20 Fluticasone 44 Mcg [Flovent 44 Mcg] 2 puff INHALATION BID 02/02/20 Furosemide [Lasix] 20 mg PO DAILY 02/02/20 Guaifenesin [Mucinex] 600 mg PO BID 02/02/20 Mirtazapine [Remeron] 15 mg PO QHS 02/02/20 Oxybutynin [Ditropan] 5 mg PO TID 02/02/20 Pantoprazole Sodium [Protonix] 20 mg PO DAILY 02/02/20 Spironolactone [Aldactone] 25 mg PO DAILY 02/02/20 Venlafaxine HCl [Venlafaxine HCl ER] 150 mg PO DAILY 02/02/20 Albuterol Sulfate [Ventolin Hfa] 2 puff INHALATION Q6H PRN 02/03/20 Cepacol Sore Throat Lozenge 1 uyen PO Q2H PRN 02/03/20 Ciprofloxacin [Cipro] 500 mg PO BID #8 tab 02/04/20 Following Prescrptions Were Given to Patient: Ciprofloxacin [Cipro] 500 mg PO BID #8 tab Prescription Printed Primary Care Physician: Dino Crenshaw MD [Primary Care Provider] - Please follow up with your Primary Care Physician in: 1-2 weeks. [facility]position: [facility] facility Minutes spent on discharge:: 28 Medical Necessity - Tobacco Use Smoking Status: Unknown if ever smoked Meaningful Use Info Meaningful Use Diagnoses (Choose all that apply): None applicable Inpatient E&M: 05866 Disch Hosp
--- NOTE | 2020-02-04 12:11 | NURSING ---
REPORT CALLED TO PATRICIA @ [facility]
== END 2020-02-04 13:20 | disposition skilled nursing facility (03) | DRG 720 ==
LOC: ED 20:51 → ICU 23:23 → MS3 02-03 07:17
PROVIDERS: Internal Medicine; Admitting Provider Hospitalist; Emergency Provider Emergency Medicine; PCP Family Medicine; Visit Provider Hospitalist
DX: A41.9 Sepsis, unspecified organism (principal); N30.00 Acute cystitis without hematuria; B96.4 Proteus (mirabilis) (morganii) as the cause of diseases classified elsewhere; Z79.82 Long term (current) use of aspirin; Z79.51 Long term (current) use of inhaled steroids; Z87.891 Personal history of nicotine dependence; G93.41 Metabolic encephalopathy; N17.9 Acute kidney failure, unspecified; I50.42 Chronic combined systolic (congestive) and diastolic (congestive) heart failure; Z95.810 Presence of automatic (implantable) cardiac defibrillator; I25.5 Ischemic cardiomyopathy; F32.9 Major depressive disorder, single episode, unspecified; I25.10 Atherosclerotic heart disease of native coronary artery without angina pectoris; R53.81 Other malaise; J44.9 Chronic obstructive pulmonary disease, unspecified; E78.5 Hyperlipidemia, unspecified
CPT/HCPCS: 36415; 51702; 71045; 80048; 80053; 80076; 81001; 83605; 83690; 85025; 87040; 87077; 87086; 87088; 87186; 87635; 93005; 94640; 97116; 97162; 97166; 99285; G2023; J7030; J7040; A4216; U0003

== ENCOUNTER 2020-02-29 09:05 | Inpatient (IN) | payer MEDICAID, SELFPAY ==
[2020-02-03 00:54] VITALS: BMI 20.5
[2020-02-29] VITALS (17 sets, daily range): BP systolic 106–145; BP diastolic 65–105; PULSE 55–150; RESP 12–24; TEMP 35.9–36.9; O2SAT 92–95; BMI 21.6; BMI 20.2
--- NOTE | 2020-02-29 09:08 | EKG12_ITS ---
Test Reason : Blood Pressure : / mmHG Vent. Rate : 073 BPM Atrial Rate : 394 BPM P-R Int : 160 ms QRS Dur : 084 ms QT Int : 398 ms P-R-T Axes : -63 074 113 degrees QTc Int : 438 ms Atrial-paced rhythm with premature ventricular or aberrantly conducted complexes Low voltage QRS ST & T wave abnormality, consider anterolateral ischemia Abnormal ECG Confirmed by FABIOLA KING ([id number]), index editor ALONDRA SNYDER ([id number]) on 03/02/2020 11:15:54 AM Referred By: YESSI Confirmed By:FABIOLA KING
--- NOTE | 2020-02-29 09:08 | RAD_ITS ---
STUDY: X-RAY CHEST REASON FOR EXAM: Female, 64 years old. RIGHT SIDED WEAKNESS TECHNIQUE: Single AP portable view of the chest. COMPARISON: Comparison is made with prior study 02-02-20. FINDINGS: EKG electrodes are seen. Hyperinflation. Stable increased markings at the right lung apex suggestive of scarring. There is no demonstrated pleural abnormality. Sternal cerclage wires and vascular clips are present from a prior sternotomy and coronary artery bypass graft procedure (CABG). A left-sided ICD is seen. Normal mediastinum and mag. Normal visualized pulmonary arteries. There is atherosclerotic calcification of the aortic arch with tortuosity. Normal visualized thoracic spine. Normal visualized ribs, clavicles, and shoulders. There is no demonstrated abnormality of the visualized soft tissue structures of the upper abdomen. RAD/Chest 1 View IMPRESSION: No acute abnormality is seen. Electronically Signed: Gamal Tom, at 10:41 EDT , Service support ,
--- NOTE | 2020-02-29 09:10 | CT_ITS ---
STUDY: CTA HEAD AND NECK WITH CONTRAST REASON FOR EXAM: Female, 64 years old. CVA, STROKE SYMPTOMS RADIATION DOSAGE (If Supplied By Facility): CTDIvol = ( 13.78 ) mGy, DLP = ( 415.77 ) mGycm TECHNIQUE: CT angiography was performed with a multi-detector CT scanner. Data acquisition was obtained from the skull base through the vertex following intravenous administration of 100 CC ISOVUE 370. MIP images were reconstructed from the axial data set. Post-processing of the angiographic images was performed, with multiplanar reformation and 3D reconstruction. Individualized dose optimization techniques were used for this CT. COMPARISON: No relevant priors. FINDINGS: Normal bilateral petrous carotid arteries. There is calcified plaque formation of the right cavernous carotid artery, without a cross-sectional luminal stenosis. There is calcified plaque formation of the left cavernous carotid artery, without a cross-sectional luminal stenosis. Normal right A1 segments of the anterior cerebral artery. Normal left A1 segments of the anterior cerebral artery. Normal intact anterior communicating artery (ACOM). Normal bilateral A2 segments of the anterior cerebral arteries. Normal right M1 and M2 segments of the middle cerebral arteries, with a normal M1 bifurcation. Normal left M1 and M2 segments of the middle cerebral arteries, with a normal M1 bifurcation. Normal right posterior communicating artery (PCOM). Normal left posterior communicating artery (PCOM). Normal bilateral vertebral arteries. Normal basilar artery with a normal basilar bifurcation. The visualized bilateral superior cerebellar (SCA) arteries are normal. Normal bilateral P1, P2 and visualized P3 segments of the posterior cerebral arteries. There is no demonstrated aneurysm of the [place] of [place]. AORTIC ARCH: There is atherosclerotic calcific plaque formation of the aortic arch and great vessels arising from the aortic arch, without a hemodynamically significant stenosis. There is a normal origin of the brachiocephalic, left common carotid, and left subclavian arteries. There is evidence of a prior CABG. RIGHT CAROTID ARTERIES: Normal right common carotid artery (CCA). Normal right common carotid bulb. There is mild atherosclerotic plaque formation of the origin of the right internal carotid artery with less than 50% cross sectional diameter stenosis. Normal visualized cervical portion of the right internal carotid artery. Normal origin of the right external carotid artery (ECA). LEFT CAROTID ARTERIES: Normal left common carotid artery (CCA). Normal left common carotid bulb. There is mild atherosclerotic plaque formation of the origin of the left internal carotid artery with less than 50% cross sectional diameter stenosis. Normal visualized cervical portion of the left internal carotid artery. Normal origin of the left external carotid artery (ECA). VERTEBRAL ARTERIES: Normal bilateral vertebral arteries. CT/CTA Head AND Neck W/ Contrast IMPRESSION: Calcific plaque at the origin of the right and left internal carotid arteries causing less than percent stenosis. N.B. : The above information has been verbally conveyed by Gamal Tom to EDI DICKSON on 02/29/2020 09:36:14 (ET). Electronically Signed: Gamal Tom, at 9:37 EDT , Service support ,
--- NOTE | 2020-02-29 09:10 | CT_ITS ---
STUDY: CT BRAIN WITHOUT CONTRAST REASON FOR EXAM: Female, 64 years old. STROKE RADIATION DOSAGE (If Supplied By Facility): CTDIvol = ( 44.99 ) mGy, DLP = ( 762.36 ) mGycm TECHNIQUE: Transaxial CT imaging of the brain was performed without administration of intravenous contrast material. Individualized dose optimization techniques were used for this CT. COMPARISON: No relevant priors. FINDINGS: Normal soft tissue structures. Normal calvarium. There is mild cerebral atrophy with widening of the extra-axial spaces and ventricular dilatation. There are areas of decreased attenuation within the white matter tracts of the supratentorial brain, consistent with microvascular disease changes. Focal area of encephalomalacia in keeping with old infarction in the left frontotemporal lobe measuring 3.1 cm x 3.3 cm. Normal basal ganglia and thalami. Normal brainstem. Normal cerebellum. There is no intracranial hemorrhage. There are no findings of an acute ischemic infarction. Atherosclerotic calcification of the cavernous portions of the internal carotid arteries bilaterally. Normal visualized paranasal sinuses. CT/Brain/Head without Contrast IMPRESSION: Chronic involutional changes of the brain. N.B. : The above information has been verbally conveyed by Gamal Tom to EDI DICKSON on 02/29/2020 09:22:34 (ET). Electronically Signed: Gamal Tom, at 9:23 EDT , Service support ,
--- NOTE | 2020-02-29 09:13 | ED.VIS.GEN ---
History of Present Illness Chief Complaint: Neuro S/Sx Informant: Patient, SNF Narrative: Patient is a 64-year-old female the past medical history of ischemic cardiomyopathy who presents to the emergency department for right-sided weakness and slurred speech. The history is given by her nurse at the nursing facility. She was the daytime nurse and went to check on her at 8:30 AM this morning. At that time she noted that she had right-sided weakness and was not speaking well. The report that she got was from the night nurse at signout at 6 or 630 this morning. She is not sure if she checked on her at that time but there was apparently no changes passed along. She normally speaks very clearly. She can normally ambulate but with a walker. Upon arrival to the emergency department her right arm is slightly contracted. The nurse states that this is not her baseline. They do not know of any history of strokes in the past. She is not on any anticoagulation except for an aspirin daily. I did review her past medical records which she was in the hospital earlier this month. Sounds like she did have some of the same symptoms at that time but not quite as severe as she does now. She was seen for a fever at that time and has a negative for the coronavirus. Past Medical History - Allergies and Home Meds Allergies/Adverse Reactions: Allergies codeine Allergy (Verified 02/29/20 09:15) PT UNSURE OF REACTION diphenhydramine Allergy (Verified 02/29/20 09:15) PT UNSURE OF REACTION iodine Allergy (Verified 02/29/20 09:15) PT UNSURE OF REACTION Primary Care Physician: Dino Crenshaw MD [Primary Care Provider] - Prior records reviewed: Yes Past Medical History: - - Ischemic cardiomyopathy, hypertension Surgical History: pacemaker implantation - ICD placement, tonsillectomy, - - Tubal ligation; mitral valve prolapse operation; double bypass. Lives: [facility] Smoking Status: Unknown if ever smoked - Family History Maternal Family History: Reports: - - Unable to obtain since patient is confused. Paternal Family History: Reports: - - Unable to obtain since patient is confused. Review of Systems ROS: Unable to Obtain - Patient does not answer questions about review of system. ENT: Denies: Rhinorrhea, Sore throat Respiratory: Denies: Dyspnea on exertion Physical Exam Inital Vital Signs reviewed: Yes General: Well nourished, Well developed Head: Atraumatic, - - Facial droop on the right Eyes: Perrl, EOMI ENT: Moist mucous membranes Neck: Supple Cardiovascular: Regular rate, Regular rhythm, No murmurs Respiratory: No distress, CTA bilaterally Abdomen: Soft, Nontender, Nondistended Back: Nontender Extremities: - - Right arm contracted but able to hold up against gravity.. Negative for: No edema, Tenderness Skin: Normal color Neurological: Alert, - - Patient does have slurred speech but answers questions appropriately. Right arm contracted but does hold up against gravity. Right leg she does not have strength against gravity. Has aphasia and dysarthria for NIH score of 10. Diagnostic/Tx/Re-eval - EKG Initial EKG Interpretation: - - Patient's EKG is limited by artifact. Unfortunately due to her tension in the right arm and shaking her left arm we were unable to get a better rhythm strip. But this shows a rate of 73 bpm. Normal intervals. Normal axis. No appreciable significant ST elevations. EKG for comparison was performed on February 02, 2020. - Medical Decision Making Patient presents to the emergency department for strokelike symptoms with right-sided weakness, and speech issues. Unfortunately we are not able to get a time for her last known well as the nurse received signout and checked on her at 830. They are not sure what time she went to sleep either. Patient states she was doing fine last night. She does answer some questions during the exam but ignores others. She does seem to have dysarthria and aphasia. She does have complete weakness of the right lower extremity. Follow some commands but not others. She does have a mild facial droop on the right. Due to this we gave her an NIH score of 10. Tele-stroke did evaluate her but due to unknown well she is not a TPA candidate. CT angios obtained to evaluate for LVO. She did have a iodine allergy and will treat with Solu-Medrol. She has a Benadryl allergy so we will avoid this as well. Tele-stroke did evaluate the patient. But due to the last unknown while she is not a TPA candidate. No large vessel occlusion seen on CT scan. Will bring her into the hospital for further evaluation and management this time. Lab work showed mildly low calcium but otherwise no significant abnormality. Chest x-ray did not show any evidence of consolidation. Patient's daughter, November was updated on patient's status. ED Disposition - Plan for ED Patient: Disposition: Acute Care [facility] Diagnosis: CVA (cerebral vascular accident), Dysarthria, Aphasia, Right sided weakness, Hypocalcemia Referrals: Dino Crenshaw MD [Primary Care Provider] -
[2020-02-29 09:38] LABS: Absolute Lymphocyte Count 2.28 X10^3/uL (0.83-4.51); Absolute Neutrophil Count 7.8 X10^3/uL (2.0-7.7); Basophil# 0.04 X10^3/uL; Basophil% 0.3 % (0-1); Eosinophil# 0.31 X10^3/uL; Eosinophils% 2.7 % (0-5); Hematocrit 36.1 % (37-47); Hemoglobin 11.3 g/dL (12.0-15.0); Lymphocyte # 2.28 X10^3/ul (4.0); Lymphocyte % 19.7 % (19-41); Mean Corp Hgb Conc 31.3 g/dL (32-36); Mean Corpuscular Hgb 28.5 pg (27.0-32.0); Mean Corpuscular Volume 91.2 fL (81-99); Mean Platelet Vol. 12.2 fl (6.2-12.0); Monocyte% 8.7 % (0-10); NRBC Flagged by Analyzer 0 % (0-5); Neutrophil # 7.82 X10^3/uL (2.7-7.7); Neutrophil % 67.7 % (47-70); Platelet Count 160 K/mm3 (150-450); RBC Distribution Width CV 16.3 % (11.6-14.6); RBC Distribution Width SD 53.7 fl (35.1-43.9); Red Blood Count 3.96 M/mm3 (4.2-5.4); White Blood Count 11.6 K/mm3 (4.4-11.0)
[2020-02-29] MEDS: MethylPREDNISolone 125 MG/2 ML Vial IV (09:48)
[2020-02-29 09:55] LABS: Anion Gap 4 (5-15); BUN 38 mg/dL (7-18); BUN/Creat Ratio 38.2 RATIO (10-20); Calcium,Total 7.7 mg/dL (8.5-10.1); Chloride 104 mmol/L (98-107); EST Glomerular Filtration Rate 59 mL/min (>60); Est Glom Filt Rate - Afr Amer 72 mL/min (>60); Estimated Creatinine Clearance 51.81 ml/min; Glucose 86 mg/dL (74-106); Sodium Level 137 mmol/L (136-145)
[2020-02-29 10:00] LABS: International Normalized Ratio 1.1; Partial Thromboplast Time 24.9 Seconds (24.1-36.2); Prothrombin Time (Protime)PT. 14.1 SECONDS (11.7-14.9)
--- NOTE | 2020-02-29 10:59 | PCM.HP.STD ---
Problem List (1) Status post implantation of automatic cardioverter/defibrillator (AICD) Status: Chronic (2) Status post coronary artery bypass graft Status: Chronic (3) Coronary artery disease Status: Chronic (4) Stage III chronic kidney disease Status: Chronic (5) Depression Status: Chronic (6) Hyperlipidemia Status: Chronic (7) COPD (chronic obstructive pulmonary disease) Status: Chronic (8) GERD (gastroesophageal reflux disease) Status: Chronic (9) Chronic combined systolic and diastolic CHF (congestive heart failure) Status: Chronic (10) CVA (cerebral vascular accident) Status: Acute History of Present Illness Date of Admission: 02/29/20 Chief Complaint: Right-sided weakness, slurred speech. The patient is a 64 year old F with past medical history as mentioned above presented to the emergency room from the skilled nursing because of right-sided body weakness and slurred speech. The patient is very poor informant, not able to provide good history and she was able to say a couple of words coherently. She is dysarthric and sometimes aphasic. According to the ER physician, patient was brought from the skilled nursing this morning because of right side body weakness that started around 830 this morning and nursing staff mentioned that she was not speaking well, her speech was slurred. They were not able to pinpoint what time was patient seen well last time. They mentioned that patient is normally speaks clearly and ambulate with a walker. She had a history of chronic systolic and diastolic CHF, status post ICD and currently, it is compensated and she is clinically stable. She had a history of COPD and she has been on bronchodilators but not on home oxygen. She will history of stage III chronic kidney disease and kidney function has been stable. Upon arrival to the emergency department, her vital signs were stable. According to ER physician, her NIH stroke scale was 10. Her routine blood work was remarkable for mild leukocytosis, hemoglobin of 11.3 g/dL and her calcium was 7.7 mg/dL. EKG revealed paced rhythm, no acute changes. Troponin was negative. CT brain without contrast showed no acute findings. CTA of the head and neck revealed calcific plaque at the origin of the right and left internal carotid artery causing less than 50% stenosis. Chest x-ray showed no acute findings. She is being admitted for acute stroke for evaluation and treatment. Past Medical History Past Medical History (Chronic Problems): Chronic Problems (Last Reviewed 02/03/20 @ 03:[address] Guru Kendrick MD) Status post implantation of automatic cardioverter/defibrillator (AICD) (Chronic) Status post coronary artery bypass graft (Chronic) Coronary artery disease (Chronic) Stage III chronic kidney disease (Chronic) Depression (Chronic) Hyperlipidemia (Chronic) COPD (chronic obstructive pulmonary disease) (Chronic) GERD (gastroesophageal reflux disease) (Chronic) Chronic combined systolic and diastolic CHF (congestive heart failure) (Chronic) Medical History: Medical History (Last Reviewed 02/03/20 @ 03:[address] Guru Kendrick MD) Congestive heart failure I50.9 Allergies codeine Allergy (Verified 02/29/20 09:15) PT UNSURE OF REACTION diphenhydramine Allergy (Verified 02/29/20 09:15) PT UNSURE OF REACTION iodine Allergy (Verified 02/29/20 09:15) PT UNSURE OF REACTION Home Medications: Ambulatory Orders Medication Instructions Recorded Acetaminophen [Tylenol] 500 mg PO Q6H PRN PRN 02/02/20 Aspirin E.C. [Ecotrin] 81 mg PO DAILY@0800 02/02/20 Atorvastatin Calcium [Lipitor] 40 mg PO QHS 02/02/20 Carvedilol [Coreg] 12.5 mg PO BIDCM 02/02/20 Cetirizine HCl [Zyrtec] 10 mg PO QHS 02/02/20 Docusate Sodium [Colace] 100 mg PO BID 02/02/20 Fluticasone 44 Mcg [Flovent 44 Mcg] 2 puff INHALATION BID 02/02/20 Furosemide [Lasix] 20 mg PO DAILY 02/02/20 Guaifenesin [Mucinex] 600 mg PO BID 02/02/20 Mirtazapine [Remeron] 15 mg PO QHS 02/02/20 Oxybutynin [Ditropan] 5 mg PO TID 02/02/20 Pantoprazole Sodium [Protonix] 20 mg PO DAILY 02/02/20 Spironolactone [Aldactone] 25 mg PO DAILY 02/02/20 Venlafaxine HCl [Venlafaxine HCl 150 mg PO DAILY 02/02/20 ER] Albuterol Sulfate [Ventolin Hfa] 2 puff INHALATION Q6H PRN 02/03/20 Benzocaine/Menthol [Cepacol Sore 1 each MM Q2H PRN #0 02/03/20 Throat Lozenge] Fluticasone 0.05% [Flonase Nasal 1 spray NASAL QHS 02/29/20 Superior] Ipratropium/Albuterol Sulfate 3 ml IH Q6H PRN 02/29/20 [Iprat-Albut 0.5-3(2.5) mg/3 ml] Tizanidine HCl 4 mg PO DAILY PRN 02/29/20 Tizanidine HCl [Zanaflex] 4 mg PO QHS 02/29/20 Surgical History: coronary bypass surgery, pacemaker implantation - ICD placement, tonsillectomy, - - Tubal ligation; mitral valve prolapse operation. 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 Denies: Anorexia, Chills, Fever Eyes: Denies: Blurred vision, Double vision, Drainage, Redness HEENT: Denies: Difficulty Hearing, Ear Pain, Eye Pain, Nasal Congestion, Sore Throat Cardiovascular: Denies: Chest Pain, Chest Pressure, Heaviness, Light Headedness, Palpitations, Syncope Respiratory: Denies: Cough, Pleuritic Pain, Shortness of Breath, Sputum production, Wheezing Gastrointestinal: Denies: Abdominal Pain, Constipation, Diarrhea, Nausea, Vomiting Genitourinary: Denies: Dysuria, Frequency, Hematuria Musculoskeletal: Denies: Arm Pain, Back Pain, Foot Pain Skin: Denies: Dryness, Rash Neurological: Reports: Change in Speech, Slurred speech, Confusion. Denies: Balance problems, Double vision, Headaches, Incoordination, Numbness, Tingling Psychiatric: Reports: Depression. Denies: Anxiety Endocrine: Denies: Change in Body Habitus, Polydipsia, Polyuria VTE Information - Inpt Only VTE Present on Admission: No VTE Mechan Device Prophylaxis: None VTE Pharm Prophylaxis ordered?: Yes Patient Problems: Active and Suspected Problems (Last Reviewed 02/03/20 @ 03:[address] Guru Kendrick MD) CVA (cerebral vascular accident) (Acute) - Physical Exam Vitals/I&O's: Vital Signs Temp Pulse Resp BP Pulse Ox 96.6 F L 72 19 H 137/89 H 94 02/29/20 10:19 02/29/20 10:30 02/29/20 10:30 02/29/20 10:30 02/29/20 10:30 Oxygen Delivery Method Room Air Weight: 134 lb 0.657 oz Body Mass Index (BMI) 21.6 Finger Stick Blood Glucose 82 General: Alert, Cooperative, No apparent distress, Confused, Disoriented HEENT: Atraumatic, PERRLA, EOMI, Normocephalic Oral: Moist Mucosa, No Gingival or Mucosal Lesions/ Ulcerations Neck: Supple, No JVD, Negative Carotid Bruits, Trachea Midline, Thyroid Normal Size and Texture Lungs: Clear to auscultation, Normal air movement, No rhonchi, No wheeze, No rales, Diminished Cardiovascular: Regular rate, Regular Rhythm, Normal S1, Normal S2, PMI Normal Abdomen: Bowel Sounds Present, Soft, Non Tender, Non-Distended, No Hepato-splenomegaly Extremities: No clubbing, No cyanosis, No edema Skin: No rashes, No breakdown Lymphatic: No Cervical, Supraclavicular, or Inguinal Adenopathy Neurological: - - Right facial droop. Right-sided hemiparesis. Psych/Mental Status: Appropriate, Flat Affect Laboratory Results 02/29/20 09:30: WBC 11.6 H, RBC 3.96 L, Hgb 11.3 L, Hct 36.1 L, MCV 91.2, MCH 28.5, MCHC 31.3 L, RDW Std Deviation 53.7 H, RDW Coeff of Frantz 16.3 H, Plt Count 160, MPV 12.2 H, Immature Gran % (Auto) 0.900, Neut % (Auto) 67.7, Lymph % (Auto) 19.7, Atlantic % (Auto) 8.7, Eos % (Auto) 2.7, Baso % (Auto) 0.3, Absolute Neuts (auto) 7.8 H, Absolute Lymphs (auto) 2.28, Nucleated RBC % 0 02/29/20 09:30: PT 14.1, INR 1.1, APTT 24.9 02/29/20 09:30: Sodium 137, Potassium 4.0, Chloride 104, Carbon Dioxide 29.0, Anion Gap 4 L, BUN 38 H, Creatinine 1.00, Estim Creat Clear Calc 51.81, Est GFR (MDRD) Af Amer 72, Est GFR (MDRD) Non-Af 59 L, BUN/Creatinine Ratio 38.2 H, Glucose 86, Calcium 7.7 L, Troponin I < 0.015 Clinical Impression(s) from Imaging Studies Chest X-Ray 02/29/20 09:08 IMPRESSION: No acute abnormality is seen. Electronically Signed: Gamal Tom, at 10:41 EDT , Service support , Brain CT 02/29/20 09:10 IMPRESSION: Chronic involutional changes of the brain. N.B. : The above information has been verbally conveyed by Gamal Tom to GURU YESSI on 02/29/2020 09:22:34 (ET). Electronically Signed: Gamal Tom, at 9:23 EDT , Service support , ADDENDUM: 02/29/20 0930 IMPRESSION: Chronic involutional changes of the brain. N.B. : The above information has been verbally conveyed by Gamal Tom to GURU YESSI on 02/29/2020 09:22:34 (ET). Electronically Signed: Gamal Tom, at 9:23 EDT , Service support , Head/Neck CTA 02/29/20 09:10 IMPRESSION: Calcific plaque at the origin of the right and left internal carotid arteries causing less than percent stenosis. N.B. : The above information has been verbally conveyed by Gamal Tom to GURU YESSI on 02/29/2020 09:36:14 (ET). Electronically Signed: Gamal Tom, at 9:37 EDT , Service support , ADDENDUM: 02/29/20 0944 IMPRESSION: Calcific plaque at the origin of the right and left internal carotid arteries causing less than percent stenosis. N.B. : The above information has been verbally conveyed by Gamal Negro to GURU DICKSON on 02/29/2020 09:36:14 (ET). Electronically Signed: Gamal Negro, at 9:37 EDT , Service support , Current Medications Iopamidol (Contrast Allergy Check) 0 ml IV X1 EVONNE Labetalol HCl (Trandate) 20 mg IV X1 PRN PRN Reason: BLOOD PRESSURE Assessment/Plan All Active Problems (Last Reviewed 02/03/20 @ 03:[address] Guru Kendrick MD) CVA (cerebral vascular accident) (Acute) This is a 64 years old female patient presented to the emergency room because of slurred speech and right-sided body weakness, found to have a right facial droop with right-sided hemiparesis likely due to acute stroke and she is being admitted for evaluation and treatment. #1 right-sided weakness/right facial droop/acute ischemic stroke: Patient was not a candidate for TPA because time was not known when she was last well. She does have dysarthria/aphasia with right facial droop and right hemiparesis. CT scan brain showed no acute findings. CTA head and neck reviewed as above. Her vital signs are stable. EKG reviewed. Plan: Admit to PCU, cardiac monitoring, NIH stroke scale, start aspirin and statins, MRI brain, bilateral carotid Doppler, 2D echocardiogram, fasting blood profile, SOC tele-neurology consult when MRI and other work-up ready, gentle IV fluids for hydration, PT OT evaluation and treatment, speech therapy evaluation and treatment. #2 CAD status post CABG: EKG reviewed, troponin is negative. Patient denied chest pain. Plan to continue aspirin, statins, Coreg. #3 stage III chronic kidney disease: Baseline creatinine has been around 1 to 1.4 mg/dL. Today's creatinine is 1.0, stable at baseline. 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 Patient also has pacemaker, not sure why. Clinically stable, compensated. Continue aspirin, statins, Coreg, Lasix and Aldactone. #5 COPD: Pulse ox is maintained on room air, chest x-ray showed no acute findings. Plan to continue DuoNeb every 6 hours, albuterol PRN, O2 by nasal cannula if needed. #7 hyperlipidemia: Continue statins, fasting lipid profile. #8 GERD: Continue PPI. #9 CODE STATUS: Full code. It is documented on the paper from the skilled nursing. #10 DVT prophylaxis: Subcu Lovenox. This note was generated with [employer] dictation software. It may contain incorrect words, spelling, and punctuation that were not noted in checking the note before signing. Inpatient E&M: 33130 Init Hosp L3
--- NOTE | 2020-02-29 11:18 | ECHOCS_ITS ---
Reason For Study: TIA/CVA Procedure This was a 2D Doppler, Color Flow transthoracic echocardiogram. The study was technically difficult. Contrast injection was performed. Exam performed portable in patient room. Left Ventricle Normal LV size. Moderate segmental systolic dysfunction (see wall motion). The estimated ejection fraction is 30 %. Diastolic function is indeterminate. Posterior-Basal: Hypokinetic. Mid-Anterior : Hypokinetic. Mid-Lateral : Hypokinetic. Mid-Posterior: Akinetic. Mid-Inferior: Hypokinetic. Mid- inferoseptal : Hypokinetic. Mid-anteroseptal : Hypokinetic. Anterior Douglass : Akinetic. Inferior Douglass : Akinetic. Lateral Douglass : Hypokinetic. Septal Douglass : Hypokinetic. Right Ventricle Normal RV size. ICD or pacer leads identified within the right ventricle. Normal systolic function. Atria Normal left atrium. Normal right atrium. ICD or pacer leads identified within the right atrium. No doppler evidence for ASD. Bubble contrast study negative for right to left interatrial shunt. Mitral Valve There is moderate to severe mitral annular calcification. Extension of the mitral annular calcification onto the base of the posterior mitral valve leaflet. Trivial mitral valve insufficiency. Tricuspid Valve Normal tricuspid valve. Trivial tricuspid valve insufficiency. Unable to estimate RV systolic pressure/pulmonary artery pressure due to technically difficult study. Aortic Valve Trisinus/trileaflet aortic valve. Mild focal aortic valve calcification. Trivial aortic valve insufficiency. Pulmonic Valve The pulmonic valve is not well visualized. Trivial pulmonic valve insufficiency. Great Vessels Normal sized aortic root. Pericardium/Pleural No pericardial effusion. Medication Diluted definity 2ml given slow IV push to enhance endocardial definition. Performed a rapid injection of agitated mix of 9 cc saline and 1cc air to assess for atrial septal defect. MMode/2D Measurements & Calculations LVIDd: 4.5 cm IVSd: 0.90 cm Ao root diam: 3.1 cm LVIDs: 3.9 cm LVPWd: 1.1 cm FS: 12.3 % LAV(MOD-bp): 39.7 ml LVAd ap4: 27.4 cm2 SV(MOD-sp4): 24.8 ml LAV(MOD-bp) Indexed: 23.5 ml/m2 EDV(MOD-sp4): 84.4 ml LAV(MOD-sp2): 39.7 ml EDV(sp4-el): 87.6 ml LAV(MOD-sp4): 37.7 ml LVAs ap4: 22.8 cm2 ESV(MOD-sp4): 59.6 ml ESV(sp4-el): 61.2 ml EF(MOD-sp4): 29.3 % EF(sp4-el): 30.2 % SV(sp4-el): 26.5 ml LA A4 area: 14.7 cm2 LA dimension(2D): 3.8 cm RA A4 area: 12.9 cm2 Time Measurements MV dec time: 0.28 sec Doppler Measurements & Calculations MV E max brady: 105.3 cm/sec Lat Peak E' Brady: 10.3 cm/sec Med Peak E' Brady: 5.8 cm/sec MV A max brady: 106.9 cm/sec E/E' lat: 10.2 E/E' med: 18.1 MV E/A: 0.98 Ao V2 max: 81.6 cm/sec LV V1 max: 65.0 cm/sec PA V2 max: 85.1 cm/sec Ao max P.7 mmHg LV V1 max P.7 mmHg Interpretation Summary The study was technically difficult. Contrast injection was performed. Moderate segmental systolic dysfunction (see wall motion). The estimated ejection fraction is 30 %. There is moderate to severe mitral annular calcification. Extension of the mitral annular calcification onto the base of the posterior mitral valve leaflet. Trivial mitral valve insufficiency. Trivial tricuspid valve insufficiency. Mild focal aortic valve calcification. Trivial aortic valve insufficiency. Trivial pulmonic valve insufficiency. Unable to estimate RV systolic pressure/pulmonary artery pressure due to technically difficult study. Diastolic function is indeterminate. Bubble contrast study negative for right to left interatrial shunt. ICD or pacer leads identified within the right atrium ICD or pacer leads identified within the right ventricle. Ordering Physician: Sean Padilla Referring Physician: ZORAIDA LUGO Performed By: Ирина Cuevas RDCS
--- NOTE | 2020-02-29 11:18 | CDU_ITS ---
Reason For Study: CVA Rt. Velocities/BP Lt. Velocities/BP Prox CCA 66.9/9.5 cm/sec. Prox CCA 80.9/11.5 cm/sec. Mid CCA 53.9/9.5 cm/sec. Mid CCA 73.6/11.5 cm/sec. Dist CCA 55.2/10.8 cm/sec. Dist CCA 48.7/9.1 cm/sec. Prox ICA 77.3/15.2 cm/sec. Prox ICA 60.8/11.3 cm/sec. Mid ICA 115.6/22.5 cm/sec. Mid ICA 60.8/16.8 cm/sec. Dist ICA 79.1/18.8 cm/sec. Dist ICA 69.5/14.6 cm/sec. Rt. ICA/CCA = 2.1. Lt. ICA/CCA = 0.9. Prox ECA 218.4 cm/sec. Prox ECA 45.4/ cm/sec. Rt. Vert. 86.4/18.8 cm/sec. Lt. Vert. 45.4/10.2 cm/sec. Right Extracranial There is heterogeneous, irregular atherosclerotic plaque noted in the right common carotid artery. There is heterogeneous, irregular atherosclerotic plaque noted in the right internal carotid artery. There is heterogeneous, irregular atherosclerotic plaque noted in the right external carotid artery. Antegrade flow is noted in the right vertebral artery. Left Extracranial There is homogeneous, smooth atherosclerotic plaque noted in the left common carotid artery. There is homogeneous, smooth atherosclerotic plaque noted in the left internal carotid artery. There is intimal thickening but no significant atherosclerotic plaque noted in the left external carotid artery. Antegrade flow is noted in the left vertebral artery. Procedure Carotid Duplex [id number]. Limited exam on left, pt unable to turn head to the right. Exam performed portable in patient room. Interpretation Summary Irregular calcific plaque right common carotid and proximal internal and external carotid arteries. <50% stenosis right internal carotid >50% stenosis right external carotid Smooth plaque at the origin of the left internal carotid artery with less than 50% stenosis. <50% stenosis left external carotid Patent and antegrade vertebrals bilaterally Ordering Physician: Sean Padilla Referring Physician: Dino Crenshaw M.D. Performed By: Samantha Calzada RVT
[2020-02-29] MEDS: Oxybutynin 5 MG Tablet PO ×2 (12:41→22:46)
[2020-02-29] MEDS: 0.9% Normal Saline 1,000 ML 75 ML IV (12:41)
--- NOTE | 2020-02-29 13:11 | CASEMGMT ---
Patient is from [facility]. RAMANDEEP called [facility] and spoke with Iveth. 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 SW faxed her updates. SW to follow for d/c back to [facility]. Flower FERRO MSW
--- NOTE | 2020-02-29 14:39 | CASEMGMT ---
Readmission chart review: Pt is from [facility] assisted as a buttermaker helper resident. Pt initially presented to [facility] ED on 02/02/2020 for right sided facial droop/weakness and stroke alert was called but was admitted for Sepsis/fever at that time. Pt had had a recent UTI and had just completed antibx. Pt did have elevated WBC count of 15.9 initially. Pt was started on IV antibx and fluids. Pt was then discharged back to [facility] on 02/04/2020. Pt returned to [facility] ED on 02/29/2020 with c/o right sided weakness, slurred speech and stroke alert was called. Pt is dysarthric and sometimes aphasic. Pt's NIH on admission is 15 and MRI is pending. CM to follow for any further discharge planning/needs. SW to follow for return to [facility] at discharge. Carlo CADE CM
--- NOTE | 2020-02-29 16:29 | NURSING ---
Report received from Sarai Hong RN. This RN taking over patient care at this time.
[2020-02-29] MEDS: Acetaminophen 325 MG Tablet 650 MG PO (17:37)
[2020-02-29] MEDS: Carvedilol 12.5 MG Tablet PO (17:38)
[2020-02-29] MEDS: Ipratropium/Albuterol Sulfate 3 ML AMPUL.NEB INHALATION (19:35)
[2020-02-29] MEDS: Budesonide Respules 0.5 MG/2 ML AMPUL.NEB. INHALATION (19:35)
[2020-02-29] MEDS: Docusate Sodium 100 MG Capsule PO (22:45)
[2020-02-29] MEDS: Loratadine 10 MG Tablet PO (22:45)
[2020-02-29] MEDS: Mirtazapine 15 MG Tablet PO (22:46)
[2020-02-29] MEDS: Atorvastatin Calcium 80 MG Tablet PO (22:46)
[2020-02-29] MEDS: tiZANidine HCl 2 MG Tablet 4 MG PO (22:47)
[2020-02-29] MEDS: Fluticasone 0.05% 1 SPRAY NASAL.SRY NASAL (22:57)
[2020-03-01] VITALS (16 sets, daily range): BP systolic 91–150; BP diastolic 50–71; PULSE 51–81; RESP 14–24; TEMP 36.4–36.9; O2SAT 93–97; BMI 21.6
[2020-03-01 05:36] LABS: Absolute Lymphocyte Count 1.25 X10^3/uL (0.83-4.51); Absolute Neutrophil Count 12.8 X10^3/uL (2.0-7.7); Basophil# 0.02 X10^3/uL; Basophil% 0.1 % (0-1); Hematocrit 40.6 % (37-47); Hemoglobin 12.8 g/dL (12.0-15.0); Lymphocyte # 1.25 X10^3/ul (4.0); Lymphocyte % 8.4 % (19-41); Mean Corp Hgb Conc 31.5 g/dL (32-36); Mean Corpuscular Hgb 28.4 pg (27.0-32.0); Mean Corpuscular Volume 90.2 fL (81-99); Mean Platelet Vol. 12.5 fl (6.2-12.0); Monocyte# 0.72 X10^3/uL; Monocyte% 4.8 % (0-10); NRBC Flagged by Analyzer 0 % (0-5); Neutrophil # 12.78 X10^3/uL (2.7-7.7); Neutrophil % 85.8 % (47-70); Platelet Count 143 K/mm3 (150-450); RBC Distribution Width CV 16.2 % (11.6-14.6); White Blood Count 14.9 K/mm3 (4.4-11.0)
[2020-03-01 05:55] LABS: Anion Gap 6 (5-15); BUN 30 mg/dL (7-18); BUN/Creat Ratio 31.3 RATIO (10-20); Calcium,Total 7.9 mg/dL (8.5-10.1); Chloride 109 mmol/L (98-107); Cholesterol 126 mg/dL (200); Creatinine, Serum 0.96 mg/dL (0.55-1.02); EST Glomerular Filtration Rate 62 mL/min (>60); Est Glom Filt Rate - Afr Amer 75 mL/min (>60); Estimated Creatinine Clearance 51.78 ml/min; Glucose 115 mg/dL (74-106); High Density Lipoprotein 49 mg/dL; Potassium 4.4 mmol/L (3.5-5.1); Sodium Level 137 mmol/L (136-145); Triglycerides 85 mg/dL; Very Low Density Lipoprotein 17 mg/dL (5-40)
[2020-03-01] MEDS: Oxybutynin 5 MG Tablet PO ×3 (06:21→22:10)
[2020-03-01] MEDS: Ipratropium/Albuterol Sulfate 3 ML AMPUL.NEB INHALATION ×3 (07:09→18:45)
[2020-03-01] MEDS: Budesonide Respules 0.5 MG/2 ML AMPUL.NEB. INHALATION ×2 (07:09→18:46)
[2020-03-01 08:36] LABS: Mucous, Urine 0 SEEN /hpf (<or=2+); Red Blood Cells-Urine 0 SEEN /hpf (0-5); Squamous Epithelial Cells - UA 0 SEEN /hpf (5-10); White Blood Cells 0 SEEN /hpf (0-5)
[2020-03-01 08:49] LABS: Color, Urine Yellow (Yellow); Glucose, Dipstick Normal (Normal); Ketone-Dipstick Negative (Negative); Leukocyte Esterase-Dipstick Negative /ul (Negative); Nitrite-Dipstick Negative (Negative); Occult Blood-Urine Negative /ul (Negative); Protein-Dipstick 15 mg/dl (Negative); Specific Gravity, Urine 1.015 (1.002-1.030); Urine Bilirubin Dipstick Negative (Negative); Urine Clarity Sl. Cloudy (Clear); Urine Urobilinogen Normal (Normal)
--- NOTE | 2020-03-01 08:52 | PCM.PROGNOTE ---
Patient Problems: Active and Suspected Problems (Last Reviewed 02/03/20 @ 03:[address] Guru Kendrick MD) CVA (cerebral vascular accident) (Acute) Subjective: Chief complaint: Follow-up after admission for acute stroke. Patient seen and examined. No acute events overnight. Patient still dysarthric, sometimes aphasic. Today, she is able to lift her right leg up minimally as well as right upper extremity. Denied any complaints. She is a poor informant. Her vital signs are stable. - Physical Exam Vitals/I&O's: Vital Signs Temp Pulse Resp BP Pulse Ox 97.8 F 70 18 118/61 94 03/01/20 07:37 03/01/20 07:37 03/01/20 07:37 03/01/20 07:37 03/01/20 07:37 Oxygen Delivery Method Room Air Weight: 125 lb 7.088 oz Body Mass Index (BMI) 21.6 Finger Stick Blood Glucose 82 Intake and Output for Last 24 Hours 02/28/20 02/29/20 03/01/20 23:59 23:59 23:59 Intake Total 242 / 242 1192 / 1192 Output Total 0 / 0 Balance 242 / 242 1192 / 1192 General: Alert, Cooperative, No apparent distress HEENT: Atraumatic, PERRLA, EOMI, Normocephalic Oral: Moist Mucosa, No Gingival or Mucosal Lesions/ Ulcerations Neck: Supple, No JVD, Negative Carotid Bruits, Trachea Midline, Thyroid Normal Size and Texture Lungs: Clear to auscultation, Normal air movement, No rhonchi, No wheeze, No rales, Diminished Cardiovascular: Regular rate, Regular Rhythm, Normal S1, Normal S2, PMI Normal Abdomen: Bowel Sounds Present, Soft, Non Tender, Non-Distended, No Hepato-splenomegaly Extremities: No clubbing, No cyanosis, No edema Skin: No rashes, No breakdown Lymphatic: No Cervical, Supraclavicular, or Inguinal Adenopathy Neurological: - - Right facial droop. Right side hemiparesis. Dysarthria/aphasia. Psych/Mental Status: Flat Affect Laboratory Results 02/29/20 09:30: WBC 11.6 H, RBC 3.96 L, Hgb 11.3 L, Hct 36.1 L, MCV 91.2, MCH 28.5, MCHC 31.3 L, RDW Std Deviation 53.7 H, RDW Coeff of Frantz 16.3 H, Plt Count 160, MPV 12.2 H, Immature Gran % (Auto) 0.900, Neut % (Auto) 67.7, Lymph % (Auto) 19.7, Bollinger % (Auto) 8.7, Eos % (Auto) 2.7, Baso % (Auto) 0.3, Absolute Neuts (auto) 7.8 H, Absolute Lymphs (auto) 2.28, Nucleated RBC % 0 02/29/20 09:30: PT 14.1, INR 1.1, APTT 24.9 02/29/20 09:30: Sodium 137, Potassium 4.0, Chloride 104, Carbon Dioxide 29.0, Anion Gap 4 L, BUN 38 H, Creatinine 1.00, Estim Creat Clear Calc 51.81, Est GFR (MDRD) Af Amer 72, Est GFR (MDRD) Non-Af 59 L, BUN/Creatinine Ratio 38.2 H, Glucose 86, Calcium 7.7 L, Troponin I < 0.015 03/01/20 05:08: WBC 14.9 H, RBC 4.50, Hgb 12.8, Hct 40.6, MCV 90.2, MCH 28.4, MCHC 31.5 L, RDW Std Deviation 54.0 H, RDW Coeff of Frantz 16.2 H, Plt Count 143 L, MPV 12.5 H, Immature Gran % (Auto) 0.900, Neut % (Auto) 85.8 H, Lymph % (Auto) 8.4 L, Bollinger % (Auto) 4.8, Eos % (Auto) 0.0, Baso % (Auto) 0.1, Absolute Neuts (auto) 12.8 H, Absolute Lymphs (auto) 1.25, Nucleated RBC % 0 03/01/20 05:08: Sodium 137, Potassium 4.4, Chloride 109 H, Carbon Dioxide 22.0, Anion Gap 6, BUN 30 H, Creatinine 0.96, Estim Creat Clear Calc 51.78, Est GFR (MDRD) Af Amer 75, Est GFR (MDRD) Non-Af 62, BUN/Creatinine Ratio 31.3 H, Glucose 115 H, Calcium 7.9 L, Triglycerides 85, Cholesterol 126, LDL Cholesterol 60, VLDL Cholesterol 17, HDL Cholesterol 49 03/01/20 08:20: Urine Color Yellow, Urine Clarity Sl. Cloudy, Urine pH 6.0, Ur Specific Stanton 1.015, Urine Protein 15 H, Urine Glucose (UA) Normal, Urine Ketones Negative, Urine Occult Blood Negative, Urine Nitrite Negative, Urine Bilirubin Negative, Urine Urobilinogen Normal, Ur Leukocyte Esterase Negative, Urine RBC Pending, Urine WBC Pending, Ur Squamous Epith Cells Pending, Urine Bacteria Pending, Urine Mucus Pending Clinical Impression(s) from Imaging Studies Current Medications Acetaminophen (Tylenol) 650 mg PO Q6H PRN PRN PRN Reason: Pain Score 1-10/Temp > 100.7 F Last Admin: 02/29/20 17:37 Dose: 650 mg Documented by: Albuterol/Ipratropium (Duoneb) 3 ml INHALATION Q6H.RT [facility] Last Admin: 03/01/20 07:09 Dose: 3 ml Documented by: Aspirin (Ecotrin) 81 mg PO DAILY@0800 [facility] Atorvastatin Calcium (Lipitor) 80 mg PO QHS [facility] Last Admin: 02/29/20 22:46 Dose: 80 mg Documented by: Budesonide (Pulmicort Aerosol) 0.5 mg INHALATION Q12H.RT [facility] Last Admin: 03/01/20 07:09 Dose: 0.5 mg Documented by: [facility] Last Admin: 02/29/20 17:38 Dose: 12.5 mg Documented by: Docusate Sodium (Colace) 100 mg PO BID [facility] Last Admin: 02/29/20 22:45 Dose: 100 mg Documented by: Enoxaparin Sodium (Lovenox) 40 mg SC DAILY [facility] Fluticasone Propionate (Flonase Nasal [place]) 1 spray NASAL QHS [facility] Last Admin: 02/29/20 22:57 Dose: 1 spray Documented by: Furosemide (Lasix) 20 mg PO DAILY [facility] Sodium Chloride () 250 mls @ 15 mls/hr IV .[id number] PRN PRN Reason: Saline Flush Sodium Chloride () 250 mls @ 15 mls/hr IV .[id number] PRN PRN Reason: Additional IVPB Infusion Loratadine (Claritin) 10 mg PO QHS [facility] Last Admin: 02/29/20 22:45 Dose: 10 mg Documented by: Mirtazapine (Remeron) 15 mg PO QHS [facility] Last Admin: 02/29/20 22:46 Dose: 15 mg Documented by: Ondansetron HCl (Zofran) 4 mg IV Q8H PRN PRN PRN Reason: NAUSEA/VOMITING Oxybutynin Chloride (Ditropan) 5 mg PO TID [facility] Last Admin: 03/01/20 06:21 Dose: 5 mg Documented by: Pantoprazole Sodium (Protonix) 20 mg PO DAILY [facility] Senna/Docusate Sodium (Senokot-S, Paloma-Colace) 2 tablet PO BID PRN PRN PRN Reason: Constipation Sodium Chloride () 10 - 40 ml IV UD PRN PRN Reason: SALINE FLUSH Spironolactone (Aldactone) 25 mg PO DAILY [facility] Tizanidine HCl (Zanaflex) 4 mg PO DAILY PRN PRN Reason: SPASM/PAIN Tizanidine HCl (Zanaflex) 4 mg PO QHS [facility] Last Admin: 02/29/20 22:47 Dose: 4 mg Documented by: Venlafaxine HCl (Effexor Xr) 150 mg PO DAILY [facility] Zolpidem Tartrate (Ambien (Generic)) 5 mg PO QHS PRN PRN PRN Reason: INSOMNIA Medical Necessity - Tobacco Use Smoking Status: Former smoker Assessment/Plan All Active Problems (Last Reviewed 02/03/20 @ 03:[address] Guru Kendrick MD) CVA (cerebral vascular accident) (Acute) This is a 64 years old female patient presented to the emergency room because of slurred speech and right-sided body weakness, found to have a right facial droop with right-sided hemiparesis likely due to acute stroke and she is being admitted for evaluation and treatment. #1 right-sided weakness/right facial droop/acute ischemic stroke: She is on aspirin and high intensity statins. She does have right facial droop and right side but the hemiparesis as well as dysarthria/aphasia. Patient was not a candidate for TPA because time was not known when she was last well. Imaging studies reviewed. Bilateral carotid Doppler revealed less than 50% stenosis of the right internal and external carotid, less than 50% stenosis of the left internal and external carotid. 2D echocardiogram showed ejection fraction of 30%, moderate segmental systolic dysfunction, bubble contrast study negative for [id number] shunt, other findings reviewed. MRI was not done because patient had pacemaker and ICD. Her vital signs are stable, blood pressure under control. Plan: Repeat CT scan brain today without contrast, consult [facility] tele-neurology after CT scan brain results, PT OT evaluation and treatment. #2 CAD status post CABG: Stable, no chest pain. No acute EKG changes. Continue aspirin, statins and Coreg. 2D echocardiogram reviewed as above. #3 stage III chronic kidney disease: Baseline creatinine has been around 1 to 1.4 mg/dL. Today's creatinine is 0.96, stable at baseline. 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 Clinically stable, compensated, continue aspirin, statins, Coreg, Lasix and Aldactone. #5 COPD: Remained on room air, pulse ox is 94% on room air. chest x-ray showed no acute findings. Continue DuoNeb every 6 hours. #7 hyperlipidemia: Continue statins, lipid profile reviewed. #8 GERD: Continue PPI. #9 CODE STATUS: Full code. It is documented on the paper from the alf. #10 DVT prophylaxis: Subcu Lovenox. This note was generated with [employer] dictation software. It may contain incorrect words, spelling, and punctuation that were not noted in checking the note before signing. Inpatient E&M: 28753 Subs Hosp L2
[2020-03-01] MEDS: Pantoprazole Sodium 20 MG Tablet PO (09:08)
[2020-03-01] MEDS: Aspirin E.C. 81 MG Tablet PO (09:08)
[2020-03-01] MEDS: Furosemide 20 MG Tablet PO (09:08)
[2020-03-01] MEDS: Venlafaxine XR 75 MG Capsule 150 MG PO (09:08)
[2020-03-01] MEDS: Enoxaparin 40 MG/0.4 ML Syringe SC (09:09)
[2020-03-01] MEDS: Carvedilol 12.5 MG Tablet PO ×2 (09:09→15:59)
[2020-03-01] MEDS: Docusate Sodium 100 MG Capsule PO ×2 (09:09→22:10)
[2020-03-01] MEDS: Spironolactone 25 MG Tablet PO (09:09)
[2020-03-01 09:10] LABS: Bacteria 3+ /hpf (None Seen)
--- NOTE | 2020-03-01 10:00 | CT_ITS ---
STUDY: CT BRAIN WITHOUT CONTRAST REASON FOR EXAM: Female, 64 years old. STROKE SYMPTOMS, 24 HR F/U RADIATION DOSAGE (If Supplied By Facility): CTDIvol = ( 44.99 ) mGy, DLP = ( 745.49 ) mGycm TECHNIQUE: Transaxial CT imaging of the brain was performed without administration of intravenous contrast material. Individualized dose optimization techniques were used for this CT. COMPARISON: Comparison is made with prior examination dated 02/29/2020. FINDINGS: Normal soft tissue structures. Normal calvarium. There is mild cerebral atrophy with widening of the extra-axial spaces and ventricular dilatation. There are areas of decreased attenuation within the white matter tracts of the supratentorial brain, consistent with microvascular disease changes. Stable focal encephalomalacia in the posterior aspect of the right parietal occipital lobe. Stable encephalomalacia in the left frontal temporal lobes. Old lacunar infarct in the right basal ganglion. Normal brainstem. Normal cerebellum. There is no intracranial hemorrhage. There are no findings of an acute ischemic infarction. Normal visualized paranasal sinuses. CT/Brain/Head without Contrast IMPRESSION: Chronic involutional changes of the brain. Electronically Signed: Gamal Tom, at 10:14 EDT , Service support ,
--- NOTE | 2020-03-01 12:14 | TELEMED_ITS ---
[facility] Telemed has confirmed receipt of a request for visit. This document confirms receipt of the order initiating the consult. To find the results of the consultation, please view the patient's reports for the scanned Telemed Consult.
[2020-03-01] MEDS: Clopidogrel Bisulfate 75 MG Tablet PO (14:27)
--- NOTE | 2020-03-01 15:30 | CASEMGMT ---
Social Work SW met with pt and introduced self. SW attempting to see pt to complete PHQ9 depression screen due to stroke. Pt making appropriate eye contact with this development writer but unable to speak or answer any questions. PHQ9 unable to be completed at this time. ELDER Jauregui
[2020-03-01] MEDS: Loratadine 10 MG Tablet PO (22:10)
[2020-03-01] MEDS: Fluticasone 0.05% 1 SPRAY NASAL.SRY NASAL (22:11)
[2020-03-01] MEDS: tiZANidine HCl 2 MG Tablet 4 MG PO (22:11)
[2020-03-01] MEDS: Mirtazapine 15 MG Tablet PO (22:11)
[2020-03-01] MEDS: Atorvastatin Calcium 80 MG Tablet PO (22:11)
[2020-03-02] VITALS (12 sets, daily range): BP systolic 106–141; BP diastolic 53–79; PULSE 67–88; RESP 16–28; TEMP 36.2–37.2; O2SAT 93–96; BMI 21.6
[2020-03-02] MEDS: Acetaminophen 325 MG Tablet 650 MG PO (03:43)
--- NOTE | 2020-03-02 04:34 | RAD_ITS ---
HISTORY: sob EXAM: XR Chest 1 View: COMPARISON: February 29, 2020 FINDINGS: # of images incl. paperwork: 1 Left chest wall, left subclavian dual-lead cardiac pacer/defibrillator is unchanged. Sternal wires persists. Mediastinal clips persist. Calcific plaque within the aortic arch is unchanged. Lungs are clear. Heart is not enlarged. No acute osseous pathology perceived. Pulmonary vascularity is distinct. No effusions. RAD/Chest 1 View IMPRESSION: No acute cardiopulmonary disease perceived. at 0590 Reported and signed by: Al Masterson MD Electronically Signed: Al Masterson MD at 5:51 EDT Tel , Service support ,
[2020-03-02] MEDS: Oxybutynin 5 MG Tablet PO ×2 (05:31→14:56)
--- NOTE | 2020-03-02 06:55 | EKG12_ITS ---
Test Reason : Blood Pressure : / mmHG Vent. Rate : 079 BPM Atrial Rate : 059 BPM P-R Int : 000 ms QRS Dur : 092 ms QT Int : 374 ms P-R-T Axes : 000 076 143 degrees QTc Int : 428 ms Sinus Rhythm with PAC's and atrial paced rhythm Lateral infarct , age undetermined T wave abnormality, consider anterior ischemia Abnormal ECG When compared with ECG of 29-FEB-2020 09:36, MANUAL COMPARISON REQUIRED, DATA IS UNCONFIRMED Confirmed by FLORENCE LAUREN, KIKE ([id number]), managing editor SHIRLEY SOMERS ([id number]) on 03/06/2020 2:18:38 PM Referred By: KELLE Confirmed By:MILIND HENRIQUEZ MD
[2020-03-02] MEDS: Clopidogrel Bisulfate 75 MG Tablet PO (09:53)
[2020-03-02] MEDS: Aspirin E.C. 81 MG Tablet PO (09:53)
[2020-03-02] MEDS: Carvedilol 12.5 MG Tablet PO ×2 (09:53→16:06)
[2020-03-02] MEDS: Pantoprazole Sodium 20 MG Tablet PO (09:53)
[2020-03-02] MEDS: Furosemide 20 MG Tablet PO (09:53)
[2020-03-02] MEDS: Enoxaparin 40 MG/0.4 ML Syringe SC (09:53)
[2020-03-02] MEDS: Docusate Sodium 100 MG Capsule PO (09:53)
[2020-03-02] MEDS: Venlafaxine XR 75 MG Capsule 150 MG PO (09:53)
[2020-03-02] MEDS: Spironolactone 25 MG Tablet PO (09:54)
--- NOTE | 2020-03-02 10:01 | CASEMGMT ---
SW called [facility] and left a voice mail letting them know patient will likely be returning today. Flower FERRO MSW
[2020-03-02] MEDS: Ipratropium/Albuterol Sulfate 3 ML AMPUL.NEB INHALATION (13:32)
--- NOTE | 2020-03-02 15:21 | PCM.TXEXTCAR ---
- Diet 02/29/20 14:28 Diet: Cardiac/Low Cholesterol Food consistency:: Puree Liquid Consistency:: [place] Thick Is pt able to select menu?: No Diet Comments: 1:1 supervision, tsp sips only, no straws, verbal cues to swallow as needed - Routine Orders/Code Status Code Status: Full Code - Therapies Physical Therapy: Eval and Treat Occupational Therapy: Eval and Treat - Allergies/Procedures Done in Hospital Allergies/Adverse Reactions: Allergies codeine Allergy (Verified 02/29/20 09:15) PT UNSURE OF REACTION diphenhydramine Allergy (Verified 02/29/20 09:15) PT UNSURE OF REACTION iodine Allergy (Verified 02/29/20 09:15) PT UNSURE OF REACTION Iodinated Contrast Media Adverse Reaction (Verified 02/29/20 12:23) PT UNSURE OF REACTION - Type of Care/Length of Stay Estimated LOS: Convalescent Care Less Than 30 days Type of Care Needed: Skilled Rehab Potential: Fair Prognosis: Fair - Additional Orders/Day of Discharge Additional Orders: Holter monitor Day of Discharge: 03/02/20 - Dietary and Speech Recommendations Dietitian Recommendations/Changes: Will recommend Ensure Enlive 120ml 4x/day at [facility] pending [employer] eval. Continue Cardiac/Low Cholesterol diet per order; Textures per [employer] order. - Follow Up Care Primary Care Physician: Dino Crenshaw MD [Primary Care Provider] - Please Follow Up With: Rubio Diamond MD When: 2-4 weeks
--- NOTE | 2020-03-02 16:00 | CASEMGMT ---
RAMANDEEP faxed orders to [facility]. RAMANDEEP called [facility] and arranged for patient to get picked up at 630p via cot. SW left a message for patient's daughter letting her know about discharge and bulk picker time. SW notified Iveth at [facility] of bulk picker time as well as RN and outreach nurse. Patient is confused. Plan: d/c back to [facility] under intermediate level of care. [facility] transported her via cot. Flower FERRO MSW
--- NOTE | 2020-03-02 16:44 | PCM.DC.SUM ---
Discharge Date and Diagnosis - Problem List Patient Problems: Active and Suspected Problems (Last Reviewed 02/03/20 @ 03:[address] Gruu Kendrick MD) CVA (cerebral vascular accident) (Acute) Date of Admission: 02/29/20 Date of Discharge: 03/02/20 - Primary Discharge Diagnosis Acute Problems: Active Problems (Last Reviewed 02/03/20 @ 03:[address] Guru Kendrick MD) CVA (cerebral vascular accident) (Acute) - Secondary Discharge Diagnosis Chronic Problems: Chronic Problems (Last Reviewed 02/03/20 @ 03:[address] Guru Kendrick MD) Status post implantation of automatic cardioverter/defibrillator (AICD) (Chronic) Status post coronary artery bypass graft (Chronic) Coronary artery disease (Chronic) Stage III chronic kidney disease (Chronic) Depression (Chronic) Hyperlipidemia (Chronic) COPD (chronic obstructive pulmonary disease) (Chronic) GERD (gastroesophageal reflux disease) (Chronic) Chronic combined systolic and diastolic CHF (congestive heart failure) (Chronic) Hospital Course and Treatment Imaging Results: CT Brain: IMPRESSION: Chronic involutional changes of the brain. CTA Head/Neck: MPRESSION: Calcific plaque at the origin of the right and left internal carotid arteries causing less than percent stenosis. Carotid Doppler: Interpretation Summary Irregular calcific plaque right common carotid and proximal internal and external carotid arteries. <50% stenosis right internal carotid >50% stenosis right external carotid Smooth plaque at the origin of the left internal carotid artery with less than 50% stenosis. <50% stenosis left external carotid Patent and antegrade vertebrals bilaterally Echo: Interpretation Summary The study was technically difficult. Contrast injection was performed. Moderate segmental systolic dysfunction (see wall motion). The estimated ejection fraction is 30 %. There is moderate to severe mitral annular calcification. Extension of the mitral annular calcification onto the base of the posterior mitral valve leaflet. Trivial mitral valve insufficiency. Trivial tricuspid valve insufficiency. Mild focal aortic valve calcification. Trivial aortic valve insufficiency. Trivial pulmonic valve insufficiency. Unable to estimate RV systolic pressure/pulmonary artery pressure due to technically difficult study. Diastolic function is indeterminate. Bubble contrast study negative for right to left interatrial shunt. ICD or pacer leads identified within the right atrium ICD or pacer leads identified within the right ventricle. Consults: Teleneurology Operations: None Procedures: 2-D Echocardiogram Summary of Care Provided: Per HPI: The patient is a 64 year old F with past medical history as mentioned above presented to the emergency room from the long-term because of right-sided body weakness and slurred speech. The patient is very poor informant, not able to provide good history and she was able to say a couple of words coherently. She is dysarthric and sometimes aphasic. According to the ER physician, patient was brought from the long-term this morning because of right side body weakness that started around 830 this morning and nursing staff mentioned that she was not speaking well, her speech was slurred. They were not able to pinpoint what time was patient seen well last time. They mentioned that patient is normally speaks clearly and ambulate with a walker. She had a history of chronic systolic and diastolic CHF, status post ICD and currently, it is compensated and she is clinically stable. She had a history of COPD and she has been on bronchodilators but not on home oxygen. She will history of stage III chronic kidney disease and kidney function has been stable. Upon arrival to the emergency department, her vital signs were stable. According to ER physician, her NIH stroke scale was 10. Her routine blood work was remarkable for mild leukocytosis, hemoglobin of 11.3 g/dL and her calcium was 7.7 mg/dL. EKG revealed paced rhythm, no acute changes. Troponin was negative. CT brain without contrast showed no acute findings. CTA of the head and neck revealed calcific plaque at the origin of the right and left internal carotid artery causing less than 50% stenosis. Chest x-ray showed no acute findings. She is being admitted for acute stroke for evaluation and treatment. Hospital Course: 1. Right-sided weakness with right facial droop consistent with a left-sided [id number] female from a long-term presenting with right-sided strokelike symptoms. Unfortunate she has a pacemaker and cannot undergo an MRI to definitively demonstrate a lesion. Based on symptoms and in discussion with tele-neurology she likely did have a stroke. She will be placed on a 30-day event monitor as well as have Plavix added to her aspirin regimen. She did have carotid Dopplers which demonstrated less than 50% stenoses bilaterally. Her deficits did improve, she did have's a slight right sided contracture that was easily broken but she is significantly weaker on the right compared to the left, and she still has some dysarthria/aphasia however she did not receive TPA because her last known well was beyond 4-1/2 hours. She also had an echo which showed an EF of 30%. [facility]. She will continue the aspirin and Plavix regimen for 3 more weeks and then can transition back to just aspirin or Plavix depending on what the outpatient neurologist says. 2. CAD status post CABG, HTN, chronic combined systolic and diastolic CHF, CKD 3, COPD and GERD all complicate her care. Are all evaluated and her home medications were given where appropriate Patient Problems: Active and Suspected Problems (Last Reviewed 02/03/20 @ 03:[address] Guru Kendrick MD) CVA (cerebral vascular accident) (Acute) - Physical Exam Vitals/I&O's: Vital Signs Temp Pulse Resp BP Pulse Ox 98.2 F 80 18 131/75 H 94 03/02/20 16:05 03/02/20 16:05 03/02/20 16:05 03/02/20 16:05 03/02/20 16:05 Oxygen Flow Rate (L/min) 93 Oxygen Delivery Method Room Air Weight: 125 lb 7.088 oz Body Mass Index (BMI) 21.6 Finger Stick Blood Glucose 82 Intake and Output for Last 24 Hours 02/29/20 03/01/20 03/02/20 23:59 23:59 23:59 Intake Total 242 / 242 1502 / 1502 60 / 60 Output Total 1425 / 1425 240 / 240 Balance 242 / 242 77 / 77 -180 / -180 General: Alert, Oriented x3, Cooperative, No apparent distress HEENT: Atraumatic, PERRLA, EOMI, Normocephalic Oral: Moist Mucosa Neck: Supple, No JVD Lungs: Clear to auscultation, Normal air movement, No rhonchi, No wheeze, No rales, Diminished Cardiovascular: Regular rate, Regular Rhythm, Normal S1, Normal S2, No murmurs Abdomen: Soft, Non Tender, Non-Distended, No Hepato-splenomegaly Extremities: No edema, Capillary Refill Less than 3 Seconds Skin: No rashes, No breakdown Neurological: Facial Droop - Mild, Slurred Speech - Slight mild, - - Right upper extremity with 3 out of 5 strength compared to the left. Same for right lower extremity compared to the left. Right upper extremity had slight contracture at the wrist Psych/Mental Status: Flat Affect Current Medications Acetaminophen (Tylenol) 650 mg PO Q6H PRN PRN PRN Reason: Pain Score 1-10/Temp > 100.7 F Last Admin: 03/02/20 03:43 Dose: 650 mg Documented by: Albuterol/Ipratropium (Duoneb) 3 ml INHALATION Q6H.RT [facility] Last Admin: 03/02/20 13:32 Dose: 3 ml Documented by: Aspirin (Ecotrin) 81 mg PO DAILY@0800 [facility] Last Admin: 03/02/20 09:53 Dose: 81 mg Documented by: Atorvastatin Calcium (Lipitor) 80 mg PO QHS [facility] Last Admin: 03/01/20 22:11 Dose: 80 mg Documented by: Budesonide (Pulmicort Aerosol) 0.5 mg INHALATION Q12H.RT [facility] Last Admin: 03/02/20 08:33 Dose: Not Given Documented by: [facility] ([facility]) [facility] Last Admin: 03/02/20 16:06 Dose: 12.5 mg Documented by: Clopidogrel Bisulfate (Plavix) 75 mg PO DAILY [facility] Last Admin: 03/02/20 09:53 Dose: 75 mg Documented by: Docusate Sodium (Colace) 100 mg PO BID [facility] Last Admin: 03/02/20 09:53 Dose: 100 mg Documented by: Enoxaparin Sodium (Lovenox) 40 mg SC DAILY [facility] Last Admin: 03/02/20 09:53 Dose: 40 mg Documented by: Fluticasone Propionate (Flonase Nasal [place]) 1 spray NASAL QHS [facility] Last Admin: 03/01/20 22:11 Dose: 1 spray Documented by: Furosemide (Lasix) 20 mg PO DAILY [facility] Last Admin: 03/02/20 09:53 Dose: 20 mg Documented by: Sodium Chloride () 250 mls @ 15 mls/hr IV .[id number] PRN PRN Reason: Saline Flush Sodium Chloride () 250 mls @ 15 mls/hr IV .[id number] PRN PRN Reason: Additional IVPB Infusion Loratadine (Claritin) 10 mg PO QHS [facility] Last Admin: 03/01/20 22:10 Dose: 10 mg Documented by: Mirtazapine (Remeron) 15 mg PO QHS [facility] Last Admin: 03/01/20 22:11 Dose: 15 mg Documented by: Ondansetron HCl (Zofran) 4 mg IV Q8H PRN PRN PRN Reason: NAUSEA/VOMITING Pantoprazole Sodium (Protonix) 20 mg PO DAILY [facility] Last Admin: 03/02/20 09:53 Dose: 20 mg Documented by: Senna/Docusate Sodium (Senokot-S, Paloma-Colace) 2 tablet PO BID PRN PRN PRN Reason: Constipation Sodium Chloride () 10 - 40 ml IV UD PRN PRN Reason: SALINE FLUSH Spironolactone (Aldactone) 25 mg PO DAILY [facility] Last Admin: 03/02/20 09:54 Dose: 25 mg Documented by: Tizanidine HCl (Zanaflex) 4 mg PO DAILY PRN PRN Reason: SPASM/PAIN Tizanidine HCl (Zanaflex) 4 mg PO QHS [facility] Last Admin: 03/01/20 22:11 Dose: 4 mg Documented by: Venlafaxine HCl (Effexor Xr) 150 mg PO DAILY [facility] Last Admin: 03/02/20 09:53 Dose: 150 mg Documented by: Zolpidem Tartrate (Ambien (Generic)) 5 mg PO QHS PRN PRN PRN Reason: INSOMNIA Home Medications: Medications to take at Discharge Acetaminophen [Tylenol] 500 mg PO Q6H PRN PRN 02/02/20 Aspirin E.C. [Ecotrin] 81 mg PO DAILY@0800 02/02/20 Carvedilol [Coreg] 12.5 mg PO BIDCM 02/02/20 Cetirizine HCl [Zyrtec] 10 mg PO QHS 02/02/20 Docusate Sodium [Colace] 100 mg PO BID 02/02/20 Fluticasone 44 Mcg [Flovent 44 Mcg] 2 puff INHALATION BID 02/02/20 Furosemide [Lasix] 20 mg PO DAILY 02/02/20 Guaifenesin [Mucinex] 600 mg PO BID 02/02/20 Mirtazapine [Remeron] 15 mg PO QHS 02/02/20 Oxybutynin [Ditropan] 5 mg PO TID 02/02/20 Pantoprazole Sodium [Protonix] 20 mg PO DAILY 02/02/20 Spironolactone [Aldactone] 25 mg PO DAILY 02/02/20 Venlafaxine HCl [Venlafaxine HCl ER] 150 mg PO DAILY 02/02/20 Albuterol Sulfate [Ventolin Hfa] 2 puff INHALATION Q6H PRN 02/03/20 Benzocaine/Menthol [Cepacol Sore Throat Lozenge] 1 each MM Q2H PRN #0 02/03/20 Fluticasone 0.05% [Flonase Nasal Gerlaw] 1 spray NASAL QHS 02/29/20 Ipratropium/Albuterol Sulfate [Iprat-Albut 0.5-3(2.5) mg/3 ml] 3 ml IH Q6H PRN 02/29/20 Tizanidine HCl 4 mg PO DAILY PRN 02/29/20 Tizanidine HCl [Zanaflex] 4 mg PO QHS 02/29/20 Atorvastatin Calcium [Lipitor] 80 mg PO QHS #0 03/02/20 Clopidogrel Bisulfate [Plavix] 75 mg PO DAILY #30 tab 03/02/20 Following Prescriptions Were Given to Patient: Clopidogrel Bisulfate [Plavix] 75 mg PO DAILY #30 tab Primary Care Physician: Dino Crenshaw MD [Primary Care Provider] - Please follow up with your Primary Care Physician in: 3-5 days Please Follow Up With: Rubio Diamond MD When: 2-4 weeks Medical Necessity - Tobacco Use Smoking Status: Former smoker Meaningful Use Info Meaningful Use Diagnoses (Choose all that apply): Ischemic CVA - CVA Therapy Assessed for PT,OT and/or ST?: Yes - Ischemic Stroke Antithrombotic order at d/c?: Yes Dx of Atrial fib/flutter?: No Statins at discharge?: Yes Primary Dx Acute Ischemic CVA?: Yes IV tPA ordered during stay?: No Reason IV t-PA not ordered: Procedure not Indicated Inpatient E&M: [id number] Disch Hosp
--- NOTE | 2020-03-02 17:07 | NURSING ---
Report called to Angelina at [facility] at this time.
== END 2020-03-02 18:45 | disposition skilled nursing facility (03) | DRG 45 ==
LOC: ED 10:40 → PCU 10:44
PROVIDERS: Admitting Provider Hospitalist; Emergency Provider Emergency Medicine; PCP Family Medicine; Visit Provider Family Medicine
DX: I63.9 Cerebral infarction, unspecified (principal); R47.1 Dysarthria and anarthria; G81.91 Hemiplegia, unspecified affecting right dominant side; R29.810 Facial weakness; R29.710 NIHSS score 10; I25.5 Ischemic cardiomyopathy; I13.0 Hypertensive heart and chronic kidney disease with heart failure and stage 1 through stage 4 chronic kidney disease, or unspecified chronic kidney disease; I50.42 Chronic combined systolic (congestive) and diastolic (congestive) heart failure; E83.51 Hypocalcemia; N18.3 Chronic kidney disease, stage 3 (moderate); E78.5 Hyperlipidemia, unspecified; J44.9 Chronic obstructive pulmonary disease, unspecified; K21.9 Gastro-esophageal reflux disease without esophagitis; Z79.82 Long term (current) use of aspirin; Z95.810 Presence of automatic (implantable) cardiac defibrillator; Z95.1 Presence of aortocoronary bypass graft; I25.10 Atherosclerotic heart disease of native coronary artery without angina pectoris; Z79.899 Other long term (current) drug therapy; Z79.51 Long term (current) use of inhaled steroids; Z87.891 Personal history of nicotine dependence
CPT/HCPCS: 36415; 70450; 70496; 70498; 71045; 80048; 80061; 81001; 84484; 85025; 85610; 85730; 92526; 92610; 93005; 93306; 93880; 94640; 94762; 97110; 97112; 97162; 97166; 97802; 99285; J7030; Q9957; Q9967; A4216; C8929

== ENCOUNTER 2020-07-03 17:55 | Inpatient (IN) | payer MEDICAID, SELFPAY ==
[2020-03-02 10:25] VITALS: BMI 21.6
[2020-07-03] VITALS (14 sets, daily range): BP systolic 93–122; BP diastolic 46–80; PULSE 61–116; RESP 16–29; TEMP 36–36.2; O2SAT 87–100; BMI 23.0
[2020-07-03 18:07] LABS: Lactic Acid 1.5 mmol/L (0.4-1.9)
--- NOTE | 2020-07-03 18:41 | ECHOCS_ITS ---
Reason For Study: CHF Procedure This was a 2D Doppler, Color Flow transthoracic echocardiogram. The study was technically difficult. Poor apical accoustic windows. Contrast injection was performed. Exam performed portable in ICU/CCU. Left Ventricle Normal LV size. Severe segmental systolic dysfunction (see wall motion). The estimated ejection fraction is 25 %. Diastolic function is indeterminate. Lateral-Basal: Hypokinetic. Posterior-Basal: Hypokinetic. Infero-Basal: Hypokinetic. Basal inferoseptal: Hypokinetic. Mid-Anterior : Hypokinetic. Mid-Lateral : Akinetic. Mid-Posterior: Akinetic. Mid-Inferior: Hypokinetic. Mid-inferoseptal : Hypokinetic. Mid-anteroseptal : Hypokinetic. [place] : Akinetic. Right Ventricle Normal RV size. ICD or pacer leads identified within the right ventricle. Normal systolic function. Atria Normal left atrium. Normal right atrium. ICD or pacer leads identified within the right atrium. No doppler evidence for ASD. Mitral Valve There is moderate to severe mitral annular calcification. Extension of the mitral annular calcification onto the base of the posterior mitral valve leaflet. Trivial mitral valve insufficiency. Tricuspid Valve Normal tricuspid valve. Trivial tricuspid valve insufficiency. Unable to estimate RV systolic pressure/pulmonary artery pressure due to technically difficult study. Aortic Valve Trisinus/trileaflet aortic valve. Mild focal aortic valve calcification. Trivial aortic valve insufficiency. Pulmonic Valve The pulmonic valve is not well visualized. Great Vessels Normal sized aortic root. Pericardium/Pleural No pericardial effusion. Medication Diluted definity 2.0ml given slow IV push to enhance endocardial definition. MMode/2D Measurements & Calculations LVIDd: 5.3 cm IVSd: 0.89 cm Ao root diam: 2.8 cm LVIDs: 4.5 cm LVPWd: 0.75 cm FS: 14.6 % LAV(MOD-bp): 45.9 ml LVAd ap4: 28.5 cm2 SV(MOD-sp4): 32.3 ml LAV(MOD-bp) Indexed: 28.9 ml/m2 EDV(MOD-sp4): 89.8 ml LAV(MOD-sp2): 49.4 ml EDV(sp4-el): 91.3 ml LAV(MOD-sp4): 38.7 ml LVAs ap4: 22.3 cm2 ESV(MOD-sp4): 57.5 ml ESV(sp4-el): 59.4 ml EF(MOD-sp4): 35.9 % EF(sp4-el): 35.0 % SV(sp4-el): 31.9 ml LA A4 area: 15.4 cm2 LA dimension(2D): 3.9 cm RA A4 area: 10.9 cm2 Doppler Measurements & Calculations MV E max brady: 87.5 cm/sec Lat Peak E' Brady: 5.2 cm/sec Med Peak E' Brady: 3.2 cm/sec MV A max brady: 64.5 cm/sec E/E' lat: 16.7 E/E' med: 27.1 MV E/A: 1.4 Ao V2 max: 82.0 cm/sec LV V1 max: 60.3 cm/sec PA V2 max: 63.3 cm/sec Ao max P.7 mmHg LV V1 max P.5 mmHg Interpretation Summary The study was technically difficult. Contrast injection was performed. Severe segmental systolic dysfunction (see wall motion). The estimated ejection fraction is 25 %. There is moderate to severe mitral annular calcification. Extension of the mitral annular calcification onto the base of the posterior mitral valve leaflet. Trivial mitral valve insufficiency. Trivial tricuspid valve insufficiency. Mild focal aortic valve calcification. Trivial aortic valve insufficiency. Unable to estimate RV systolic pressure/pulmonary artery pressure due to technically difficult study. Diastolic function is indeterminate. ICD or pacer leads identified within the right atrium ICD or pacer leads identified within the right ventricle. Ordering Physician: Yoni Gamboa Referring Physician: Dino Crenshaw Performed By: Deirde Ramos, PALAK, RVT
[2020-07-03] MEDS: 0.9% Saline Lock 10 ML Syringe IV (18:50)
--- NOTE | 2020-07-03 19:27 | PCM.HP.STD ---
Problem List (1) Respiratory failure Status: Acute Qualifiers: Chronicity: acute on chronic Respiratory failure complication: hypoxia Qualified Code(s): J96.21 - Acute and chronic respiratory failure with hypoxia (2) Acute sepsis Status: Acute (3) Acute on chronic systolic CHF (congestive heart failure) Status: Chronic (4) Pyelonephritis Status: Acute History of Present Illness Date of Admission: 07/03/20 Chief Complaint: Acute sepsis secondary to pyelonephritis, possible pneumonia, acute on chronic systolic CHF The patient is a 64 year old F who was directly admitted to ICU at [facility] from [facility] emergency room where she presented due to elevated temperature. Patient is a long-term half-way patient with multiple medical problems including coronary artery disease, cerebrovascular disease, ischemic cardiomyopathy, COPD, and chronic kidney disease. Work-up in the emergency room at [facility] revealed the patient to have an elevated white blood cell count at 11, and elevated potassium level at 6.7, elevated creatinine at 1.83, elevated BUN at 36, elevated AST at 166, elevated ALT at 125, elevated lactic acid at 7.6, and elevated troponin at 0.261. Patient's urinalysis showed positive nitrites moderate leukocyte esterase and too many to count white blood cells. There was 4+ bacteria noted. Patient had a chest x-ray performed which showed bilateral diffuse infiltrates suggestive of either a diffuse pneumonia or CHF, patient underwent a CT of the abdomen and pelvis due to concerns of a possible bowel obstruction-this study showed no evidence of bowel obstruction. Patient's beta natruretic peptide was [place] 3873. Patient's COVID-19 test was done at her half-way facility and was negative. Patient was admitted to ICU at [facility], she had been given IV Lasix, IV Zosyn, IV vancomycin, and administration of fluids in the emergency room at [facility]. He will continue on vancomycin and Zosyn for now, she will receive IV Lasix, labs will be rechecked due to her hyperkalemia and elevated creatinine. Patient is currently on high flow oxygen, she had been on BiPAP for a time at the emergency room at [facility]. Patient's CODE STATUS is full code, the temp recruiter will consult on the patient tomorrow. Chest x-ray will be repeated in the morning. Past Medical History Past Medical History (Chronic Problems): Chronic Problems (Last Reviewed 02/03/20 @ 03:[address] Guru Kendrick MD) Acute on chronic systolic CHF (congestive heart failure) (Chronic) Status post implantation of automatic cardioverter/defibrillator (AICD) (Chronic) Status post coronary artery bypass graft (Chronic) Coronary artery disease (Chronic) Stage III chronic kidney disease (Chronic) Depression (Chronic) Hyperlipidemia (Chronic) COPD (chronic obstructive pulmonary disease) (Chronic) GERD (gastroesophageal reflux disease) (Chronic) Chronic combined systolic and diastolic CHF (congestive heart failure) (Chronic) Medical History: Medical History (Last Reviewed 02/03/20 @ 03:[address] Guru Kendrick MD) Congestive heart failure I50.9 Allergies codeine Allergy (Verified 02/29/20 09:15) PT UNSURE OF REACTION diphenhydramine Allergy (Verified 02/29/20 09:15) PT UNSURE OF REACTION iodine Allergy (Verified 02/29/20 09:15) PT UNSURE OF REACTION Iodinated Contrast Media Adverse Reaction (Verified 02/29/20 12:23) PT UNSURE OF REACTION Home Medications: Ambulatory Orders Medication Instructions Recorded Acetaminophen [Tylenol] 500 mg PO Q6H PRN PRN 02/02/20 Aspirin E.C. [Ecotrin] 81 mg PO DAILY@0800 02/02/20 Carvedilol [Coreg] 6.25 mg PO BIDCM 02/02/20 Cetirizine HCl [Zyrtec] 10 mg PO QHS 02/02/20 Docusate Sodium [Colace] 100 mg PO BID 02/02/20 Fluticasone 44 Mcg [Flovent 44 Mcg] 2 puff INHALATION BID 02/02/20 Furosemide [Lasix] 20 mg PO DAILY 02/02/20 Guaifenesin [Mucinex] 600 mg PO BID 02/02/20 Mirtazapine [Remeron] 15 mg PO QHS 02/02/20 Oxybutynin [Ditropan] 5 mg PO TID 02/02/20 Pantoprazole Sodium [Protonix] 20 mg PO DAILY 02/02/20 Venlafaxine HCl [Venlafaxine HCl 150 mg PO DAILY 02/02/20 ER] Albuterol Sulfate [Ventolin Hfa] 2 puff INHALATION Q6H PRN 02/03/20 Benzocaine/Menthol [Cepacol Sore 1 each MM Q2H PRN #0 02/03/20 Throat Lozenge] Fluticasone 0.05% [Flonase Nasal 1 spray NASAL QHS 02/29/20 [place]] Ipratropium/Albuterol Sulfate 3 ml IH Q6H PRN 02/29/20 [Iprat-Albut 0.5-3(2.5) mg/3 ml] Tizanidine HCl 4 mg PO DAILY PRN 02/29/20 Atorvastatin Calcium [Lipitor] 80 mg PO QHS #0 03/02/20 Clopidogrel Bisulfate [Plavix] 75 mg PO DAILY #30 tab 03/02/20 Gabapentin 300 mg PO QHS 07/03/20 Surgical History: coronary bypass surgery, pacemaker implantation - ICD placement, tonsillectomy, - - Tubal ligation; mitral valve prolapse operation. Psychiatric History: Depression POLITICAL SCIENCE CHAIR History: No pertinent POLITICAL SCIENCE CHAIR history Lives: [facility] Smoking Status: Former smoker Tobacco Use: Non-smoker Alcohol: None Drugs: None - *Family History Maternal History Items: No pertinent history Paternal History Items: No pertinent history Review of Systems Comment: Review of systems was unobtainable from the patient due to her past history of ischemic stroke with resultant expressive aphasia VTE Information - Inpt Only VTE Present on Admission: No VTE Mechan Device Prophylaxis: None VTE Pharm Prophylaxis ordered?: Yes Patient Problems: Active and Suspected Problems (Last Reviewed 02/03/20 @ 03:[address] Guru Kendrick MD) Respiratory failure (Acute) Acute sepsis (Acute) Pyelonephritis (Acute) - Physical Exam Vitals/I&O's: Vital Signs Temp Pulse Resp BP Pulse Ox 96.8 F L 68 21 H 118/62 96 07/03/20 17:00 07/03/20 19:00 07/03/20 19:00 07/03/20 19:00 07/03/20 19:00 Oxygen Flow Rate (L/min) 8 Oxygen Delivery Method Nasal Cannula Weight: 59.012 kg Body Mass Index (BMI) 23.0 Finger Stick Blood Glucose 82 Intake and Output for Last 24 Hours 07/01/20 07/02/20 07/03/20 23:59 23:59 23:59 Output Total 950 / 950 Balance -950 / -950 General: Alert, Cooperative, No apparent distress, Well developed, - - Appears much older than her stated age HEENT: Atraumatic, PERRLA, EOMI, Normocephalic Oral: Moist Mucosa Neck: Supple, No JVD, Negative Carotid Bruits, No Nuchal Rigidity, Trachea Midline, Thyroid Normal Size and Texture Lungs: No rhonchi, No wheeze, Diminished Cardiovascular: Regular rate - Atrial paced rhythm, Normal S1, Normal S2, No murmurs, PMI Normal, No rub noted, No Gallop Abdomen: Bowel Sounds Present, Soft, Non Tender, Non-Distended, No hernias noted Extremities: No clubbing, No cyanosis, No edema, Capillary Refill Less than 3 Seconds Skin: No rashes, No breakdown Musculoskeletal: No Tenderness to Palpation of Joints or Extremities Neurological: Cranial nerves II-XII grossly intact, - - Right-sided motor weakness was noted, patient has an element of expressive aphasia and was only able to say a few words to this examiner and not carry on a conversation Psych/Mental Status: Appropriate, Flat Affect Laboratory Results 07/03/20 17:15: Lactic Acid 1.5 07/03/20 18:50: Troponin I Pending Current Medications Acetaminophen (Acetaminophen 500 Mg Tablet) 500 mg PO Q6H PRN PRN PRN Reason: Pain 1-10 or Fever Albuterol/Ipratropium (Ipratropium/Albuterol Sulfate 3 Ml Ampul.Neb) 3 ml INHALATION Q6HWA.RT EVONNE Aspirin (Aspirin E.C. 81 Mg Tablet) 81 mg PO DAILY@0800 EVONNE Atorvastatin Calcium (Atorvastatin Calcium 80 Mg Tablet) 80 mg PO QHS EVONNE Budesonide (Budesonide Respules 0.5 Mg/2 Ml Ampul.Neb.) 0.5 mg INHALATION BID.RT EVONNE Carvedilol (Carvedilol 12.5 Mg Tablet) 12.5 mg PO BIDCM EVONNE Clopidogrel Bisulfate (Clopidogrel Bisulfate 75 Mg Tablet) 75 mg PO DAILY EVONNE Docusate Sodium (Docusate Sodium 100 Mg Capsule) 100 mg PO BID EVONNE Furosemide (Furosemide 40 Mg/4 Ml Vial) 40 mg IV Q8 EVONNE Heparin Sodium (Porcine) (Heparin Injection (Vial) 5,000 Unit/Ml Vial) 5,000 unit SC Q8 EVONNE Sodium Chloride () 250 mls @ 15 mls/hr IV .[id number] PRN PRN Reason: Saline Flush Sodium Chloride () 250 mls @ 15 mls/hr IV .[id number] PRN PRN Reason: Additional IVPB Infusion Vancomycin IV Pharmacy to Dose (1 ea/ Sodium Chloride) 500 mls @ 250 mls/hr IV X1 PRN; Protocol PRN Reason: Rx to Dose Piperacillin Sod/Tazobactam (Sod 3.375 gm/ Sodium Chloride) 50 mls @ 12.5 mls/hr IV Q8 EVONNE Mirtazapine (Mirtazapine 15 Mg Tablet) 15 mg PO QHS EVONNE Pantoprazole Sodium (Pantoprazole Sodium 20 Mg Tablet) 20 mg PO DAILY EVONNE Sodium Chloride (0.9% Saline Lock 10 Ml Syringe) 10 - 40 ml IV UD PRN PRN Reason: SALINE FLUSH Last Admin: 07/03/20 18:50 Dose: 20 ml Documented by: Venlafaxine HCl (Venlafaxine Xr 150 Mg Capsule) 150 mg PO DAILY EVONNE Assessment/Plan All Active Problems (Last Reviewed 02/03/20 @ 03:[address] Guru Kendrick MD) Respiratory failure (Acute) Acute sepsis (Acute) Pyelonephritis (Acute) CVA (cerebral vascular accident) (Acute) #1 acute on chronic hypoxic respiratory failure secondary to congestive heart failure-acute on chronic systolic congestive heart failure-patient will receive IV Lasix, chest x-ray will be repeated tomorrow, I's and O's will be monitored using a Hu[place] catheter #2 acute sepsis secondary to pyelonephritis-patient will continue on Zosyn and vancomycin #3 possible pneumonia-this examiner feels that this is a possibility but not likely, I feel that her respiratory failure is more secondary to acute on chronic CHF rather than pneumonia. I feel the patient's elevated temperature is due to her pyelonephritis. Patient's COVID-19 test was negative at her nursing facility #4 acute on chronic systolic congestive heart failure-patient's last echocardiogram in our records shows an EF of 30%, this was performed in February 2020, I will reorder the patient's echocardiogram to see if there is any change #5 ischemic cardiomyopathy #6 cerebrovascular disease with right hemiparesis and expressive aphasia #7 elevated lactic acid-most probably secondary to either acute hypoxic respiratory failure and/or sampling error (tourniquet use)-patient's repeat lactic acid here was below 2 #8 chronic kidney disease by history-however, patient's last creatinine here at the hospital in February 2020 was 0.96. Labs will be monitored #9 acute pyelonephritis #10 hyperkalemia-etiology unclear, will be rechecked, this may have been a lab error #11 hyperlipidemia #12 GERD #13 chronic obstructive pulmonary disease by history-I will place the patient on duo nebs while awake and Pulmicort aerosols #14 chronic debility secondary to multiple medical problems including cerebrovascular disease, ischemic cardiomyopathy, and chronic systolic congestive heart failure. Patient will be seen by PT and OT Inpatient E&M: [id number] Init Hosp L3
[2020-07-03] MEDS: Budesonide Respules 0.5 MG/2 ML AMPUL.NEB. INHALATION (19:42)
[2020-07-03] MEDS: Ipratropium/Albuterol Sulfate 3 ML AMPUL.NEB INHALATION (19:42)
[2020-07-03] MEDS: Atorvastatin Calcium 80 MG Tablet PO (21:10)
[2020-07-03] MEDS: Mirtazapine 15 MG Tablet PO (21:10)
[2020-07-03] MEDS: Heparin Injection (Vial) 5,000 UNIT/ML VIAL 5000 UNIT SC (21:11)
[2020-07-03] MEDS: Furosemide 40 MG/4 ML Vial IV (21:11)
[2020-07-03] MEDS: Docusate Sodium 100 MG Capsule PO (21:11)
--- NOTE | 2020-07-03 21:56 | NURSING ---
MULTIPLE UNSUCCESSFUL ATTEMPTS TO DRAW BLOOD ON PT. LAB MADE AWARE AND THEY WILL ATTEMPT.
[2020-07-03 23:03] LABS: Anion Gap 10 (5-15); BUN 35 mg/dL (7-18); BUN/Creat Ratio 23.6 RATIO (10-20); Calcium,Total 7.9 mg/dL (8.5-10.1); Chloride 109 mmol/L (98-107); Creatinine, Serum 1.48 mg/dL (0.55-1.02); EST Glomerular Filtration Rate 37 mL/min (>60); Est Glom Filt Rate - Afr Amer 45 mL/min (>60); Estimated Creatinine Clearance 30.93 ml/min; Glucose 232 mg/dL (74-106); Potassium 3.2 mmol/L (3.5-5.1); Sodium Level 143 mmol/L (136-145)
--- NOTE | 2020-07-03 23:23 | PCM.RX.CS ---
Consult Pharmacy has been consulted to manage selected antiobiotic: Vancomycin Type of Consult: New start Suspected Infection: Sepsis Prior Doses of Antibiotics Received/Current Regimen: Medications Vancomycin HCl 750 mg/ Sodium (Chloride) 265 mls @ 250 mls/hr IV Q24H EVONNE Labs: Sodium 143 mmol/L (136-145) 07/03/20 22:25 Potassium 3.2 mmol/L (3.5-5.1) L 07/03/20 22:25 Chloride 109 mmol/L (98-107) H 07/03/20 22:25 Carbon Dioxide 24.0 mmol/L (21.0-32.0) 07/03/20 22:25 Anion Gap 10 (5-15) 07/03/20 22:25 BUN 35 mg/dL (7-18) H 07/03/20 22:25 Creatinine 1.48 mg/dL (0.55-1.02) H 07/03/20 22:25 Est GFR (MDRD) Af Amer 45 mL/min (>60) L 07/03/20 22:25 Est GFR (MDRD) Non-Af 37 mL/min (>60) L 07/03/20 22:25 BUN/Creatinine Ratio 23.6 RATIO (10-20) H 07/03/20 22:25 Glucose 232 mg/dL (74-106) H 07/03/20 22:25 Weight used for dosin kg Estimated Creatinine Clearance: 30.9 Goal Trough: 15-20 mcg/mL Pharmacy Plan for Drug Dosing: Vancomycin 1000mg had been given at [facility] 07/03/20 @1251. Will continue with 750mg q24h dosing, and draw a trough level 07/05/20. Pharmacy Service will continue to monitor and adjust dosing as required. Follow-Up Labs: Trough Vancomycin Labs to be done on [date and time ordered]: 07/05/20 @1230
[2020-07-04] VITALS (28 sets, daily range): BP systolic 90–166; BP diastolic 50–76; PULSE 62–103; RESP 14–27; TEMP 35.9–36.8; O2SAT 90–100
[2020-07-04 04:58] LABS: Absolute Lymphocyte Count 0.99 X10^3/uL (0.83-4.51); Absolute Neutrophil Count 10.5 X10^3/uL (2.0-7.7); Basophil# 0.01 X10^3/uL; Basophil% 0.1 % (0-1); Hematocrit 37.1 % (37-47); Hemoglobin 11.5 g/dL (12.0-15.0); Lymphocyte # 0.99 X10^3/ul (4.0); Lymphocyte % 8.4 % (19-41); Mean Corpuscular Hgb 27.8 pg (27.0-32.0); Mean Corpuscular Volume 89.8 fL (81-99); Mean Platelet Vol. 12.3 fl (6.2-12.0); Monocyte# 0.18 X10^3/uL; Monocyte% 1.5 % (0-10); NRBC Flagged by Analyzer 0 % (0-5); Neutrophil # 10.54 X10^3/uL (2.7-7.7); Neutrophil % 89.6 % (47-70); Platelet Count 181 K/mm3 (150-450); RBC Distribution Width CV 14.2 % (11.6-14.6); RBC Distribution Width SD 46.9 fl (35.1-43.9); Red Blood Count 4.13 M/mm3 (4.2-5.4); White Blood Count 11.8 K/mm3 (4.4-11.0)
[2020-07-04] MEDS: Furosemide 40 MG/4 ML Vial IV ×2 (05:11→14:27)
[2020-07-04] MEDS: Heparin Injection (Vial) 5,000 UNIT/ML VIAL 5000 UNIT SC ×3 (05:11→21:55)
[2020-07-04 05:28] LABS: Anion Gap 7 (5-15); BUN 38 mg/dL (7-18); BUN/Creat Ratio 29.5 RATIO (10-20); Calcium,Total 8.2 mg/dL (8.5-10.1); Chloride 108 mmol/L (98-107); Creatinine, Serum 1.29 mg/dL (0.55-1.02); EST Glomerular Filtration Rate 44 mL/min (>60); Est Glom Filt Rate - Afr Amer 53 mL/min (>60); Estimated Creatinine Clearance 35.49 ml/min; Glucose 128 mg/dL (74-106); Potassium 2.7 mmol/L (3.5-5.1); Sodium Level 143 mmol/L (136-145)
--- NOTE | 2020-07-04 05:55 | RAD_ITS ---
STUDY: X-RAY CHEST REASON FOR EXAM: Female, 64 years old. CHF. TECHNIQUE: Single AP portable view of the chest. COMPARISON: 03/02/2020. FINDINGS: Telemetry wires overlie the chest. The lungs are well-expanded. There is mildly increased interstitial markings throughout the lungs most marked at the right lung base. There is no demonstrated pleural abnormality. Sternal cerclage wires and vascular clips are present from a prior sternotomy and coronary artery bypass graft procedure (CABG). The heart is normal in size. Stable cardiac pacemaker/ICD. Normal mediastinum and mag. Normal visualized pulmonary arteries. There is atherosclerotic calcification of the aortic arch with tortuosity. No visualized osseous changes. There is no demonstrated abnormality of the visualized soft tissue structures of the upper abdomen. RAD/Chest 1 View (Portable) IMPRESSION: Minimally increased interstitial markings most marked at the right lung base. There is no other significant interval change. Electronically Signed: Neo Castillo DO at 22:02 EST Tel [phone], Service support ,
[2020-07-04] MEDS: Potassium Chloride 10mEq/100mL 10 MEQ/100 ML IV.SOLN. 100 MEQ IV BOLUS ×4 (05:59→09:25)
[2020-07-04] MEDS: Budesonide Respules 0.5 MG/2 ML AMPUL.NEB. INHALATION ×2 (07:07→19:37)
[2020-07-04] MEDS: Ipratropium/Albuterol Sulfate 3 ML AMPUL.NEB INHALATION ×3 (07:07→19:37)
--- NOTE | 2020-07-04 07:48 | CON.PCM_ITS ---
Problem List (1) Respiratory failure Status: Acute Qualifiers: Chronicity: acute on chronic Respiratory failure complication: hypoxia Qualified Code(s): J96.21 - Acute and chronic respiratory failure with hypoxia (2) Acute sepsis Status: Acute (3) Acute on chronic systolic CHF (congestive heart failure) Status: Chronic (4) Pyelonephritis Status: Acute (5) Status post implantation of automatic cardioverter/defibrillator (AICD) Status: Chronic (6) Status post coronary artery bypass graft Status: Chronic (7) Coronary artery disease Status: Chronic (8) Stage III chronic kidney disease Status: Chronic (9) Depression Status: Chronic (10) Hyperlipidemia Status: Chronic (11) COPD (chronic obstructive pulmonary disease) Status: Chronic (12) GERD (gastroesophageal reflux disease) Status: Chronic (13) CVA (cerebral vascular accident) Status: Resolved Reason for Consult Date of Consultation: 07/04/20 Reason for Consultation: Sepsis History of Present Illness: The patient is a 64 year old F, with past medical history listed below, who p resented to [facility] on 07/03/2020 secondary to sepsis and respiratory failure after presenting to an outside ER. Patient with multiple medical problems and reportedly is at a [facility]ci. Patient is unable to provide much additional history, so the majority of the history is from the medical record. Patient reportedly was noted to have acute kidney injury with a creatinine of 1.8 and a lactate of 7.6 at an outside facility. Initial troponin was elevated at 0.261 and UA was suggestive of a UTI. Chest x-ray showed bilateral infiltrates suggestive of pneumonia versus CHF and a CT of the abdomen had shown a possible bowel obstruction. Patient's BNP was elevated at almost 4000 and Covid testing was negative. Patient reportedly had hyperkalemia at the outside facility and was given Kayexalate along with insulin and glucose. Patient was given IV Lasix, IV Zosyn, IV vancomycin at the outside facility and was transferred here for further evaluation. On arrival to our intensive care unit, patient was on high flow nasal cannula oxygen to maintain saturations. Patient was noted to be 96% on 8 L nasal cannula. Patient was mildly tachypneic at 21 and afebrile. Patient did have good diuresis in her [place] bag noted. Repeat lactic acid was noted at 1.5 and troponins were trended overnight. Troponins have peaked at about 1.4. However, patient's oxygenation status continues to improve and she is on 1 L nasal cannula to maintain saturations at this time. Patient is unable to provide much history. Patient answers with short yes and no answers. Unable to obtain a review of systems at this time. Past Medical History Past Medical History (Chronic Problems): Chronic Problems (Last Reviewed 02/03/20 @ 03:[address] Guru Kendrick MD) Acute on chronic systolic CHF (congestive heart failure) (Chronic) Status post implantation of automatic cardioverter/defibrillator (AICD) (Chronic) Status post coronary artery bypass graft (Chronic) Coronary artery disease (Chronic) Stage III chronic kidney disease (Chronic) Depression (Chronic) Hyperlipidemia (Chronic) COPD (chronic obstructive pulmonary disease) (Chronic) GERD (gastroesophageal reflux disease) (Chronic) Chronic combined systolic and diastolic CHF (congestive heart failure) (Chronic) Medical History: Medical History (Last Reviewed 02/03/20 @ 03:[address] Guru Kendrick MD) Congestive heart failure I50.9 Allergies codeine Allergy (Verified 02/29/20 09:15) PT UNSURE OF REACTION diphenhydramine Allergy (Verified 02/29/20 09:15) PT UNSURE OF REACTION iodine Allergy (Verified 02/29/20 09:15) PT UNSURE OF REACTION Iodinated Contrast Media Adverse Reaction (Verified 02/29/20 12:23) PT UNSURE OF REACTION Home Medications: Ambulatory Orders Medication Instructions Recorded Acetaminophen [Tylenol] 500 mg PO Q6H PRN PRN 02/02/20 Aspirin E.C. [Ecotrin] 81 mg PO DAILY@0800 02/02/20 Carvedilol [Coreg] 6.25 mg PO BIDCM 02/02/20 Cetirizine HCl [Zyrtec] 10 mg PO QHS 02/02/20 Docusate Sodium [Colace] 100 mg PO BID 02/02/20 Fluticasone 44 Mcg [Flovent 44 Mcg] 2 puff INHALATION BID 02/02/20 Furosemide [Lasix] 20 mg PO DAILY 02/02/20 Guaifenesin [Mucinex] 600 mg PO BID 02/02/20 Mirtazapine [Remeron] 15 mg PO QHS 02/02/20 Oxybutynin [Ditropan] 5 mg PO TID 02/02/20 Pantoprazole Sodium [Protonix] 20 mg PO DAILY 02/02/20 Venlafaxine HCl [Venlafaxine HCl 150 mg PO DAILY 02/02/20 ER] Albuterol Sulfate [Ventolin Hfa] 2 puff INHALATION Q6H PRN 02/03/20 Benzocaine/Menthol [Cepacol Sore 1 each MM Q2H PRN #0 02/03/20 Throat Lozenge] Fluticasone 0.05% [Flonase Nasal 1 spray NASAL QHS 02/29/20 [place]] Ipratropium/Albuterol Sulfate 3 ml IH Q6H PRN 02/29/20 [Iprat-Albut 0.5-3(2.5) mg/3 ml] Tizanidine HCl 4 mg PO DAILY PRN 02/29/20 Atorvastatin Calcium [Lipitor] 80 mg PO QHS #0 03/02/20 Clopidogrel Bisulfate [Plavix] 75 mg PO DAILY #30 tab 03/02/20 Gabapentin 300 mg PO QHS 07/03/20 Surgical History: coronary bypass surgery, pacemaker implantation - ICD plac ement, tonsillectomy, - - Tubal ligation; mitral valve prolapse operation. Psychiatric History: Depression ACID BLOWER History: No pertinent ACID BLOWER history Lives: [facility] Smoking Status: Former smoker Tobacco Use: Non-smoker Alcohol: None Drugs: None - *Family History Maternal History Items: No pertinent history Paternal History Items: No pertinent history Review of Systems Unable to obtain accurate/complete ROS d/t: Baseline aphasia Patient Problems: Active and Suspected Problems (Last Reviewed 02/03/20 @ 03:[address] Guru Kendrick MD) Respiratory failure (Acute) Acute sepsis (Acute) Pyelonephritis (Acute) Objective: All imaging was personally reviewed. Findings consistent with CHF. Patient does have an echocardiogram showing an EF of 30% performed in February. No pulmonary function test is available for review. - Physical Exam Vitals/I&O's: Vital Signs Temp Pulse Resp BP Pulse Ox 36.1 C L 80 27 H 144/74 H 91 07/04/20 05:00 07/04/20 07:00 07/04/20 07:00 07/04/20 07:00 07/04/20 07:00 Oxygen Flow Rate (L/min) 1 Oxygen Delivery Method Nasal Cannula Weight: 57.3 kg Body Mass Index (BMI) 23.0 Finger Stick Blood Glucose 82 Intake and Output for Last 24 Hours 07/02/20 07/03/20 07/04/20 23:59 23:59 23:59 Intake Total 720.25 / 770.25 254.17 / 254.17 Output Total 1750 / 2750 1850 / 1850 Balance -1029.75 / -1979.75 -1595.83 / -1595.83 General: Alert, Cooperative, No apparent distress, - - Appears stated age. Speaking in truncated sentences, but appears to be more related to aphasia than respiratory reserve HEENT: Atraumatic, PERRLA, EOMI, Normocephalic, - - No scleral icterus or injection noted Oral: Moist Mucosa, No Gingival or Mucosal Lesions/ Ulcerations Neck: Supple, No Nodes, Trachea Midline, JVD, Right Lungs: No rhonchi, No wheeze, Diminished, Rales - Right base, - - Symmetric expansion Cardiovascular: Regular rate, Regular Rhythm, Normal S1, Normal S2, No murmurs, No rub noted, No Gallop Abdomen: Bowel Sounds Present, Soft, Non Tender, Non-Distended Extremities: No clubbing, No cyanosis, Edema - 2+ lower extremity Skin: No rashes, No breakdown Musculoskeletal: No Tenderness to Palpation of Joints or Extremities Lymphatic: No Cervical, Supraclavicular, or Inguinal Adenopathy Neurological: Cranial nerves II-XII grossly intact, Neuro grossly intact - Compared to reported baseline. Right-sided hemiparesis at baseline Psych/Mental Status: Appropriate, Flat Affect Laboratory Results 07/03/20 17:15: Lactic Acid 1.5 07/03/20 18:50: Troponin I 1.430 H* 07/03/20 22:25: Troponin I 1.410 H* 07/03/20 22:25: Sodium 143, Potassium 3.2 L, Chloride 109 H, Carbon Dioxide 24.0, Anion Gap 10, BUN 35 H, Creatinine 1.48 H, Estim Creat Clear Calc 30.93, Est GFR (MDRD) Af Amer 45 L, Est GFR (MDRD) Non-Af 37 L, BUN/Creatinine Ratio 23.6 H, Glucose 232 H, Calcium 7.9 L 07/04/20 01:40: Troponin I 0.682 H* 07/04/20 04:52: WBC 11.8 H, RBC 4.13 L, Hgb 11.5 L, Hct 37.1, MCV 89.8, MCH 27.8, MCHC 31.0 L, RDW Std Deviation 46.9 H, RDW Coeff of Frantz 14.2, Plt Count 181, MPV 12.3 H, Immature Gran % (Auto) 0.400, Neut % (Auto) 89.6 H, Lymph % (Auto) 8.4 L, [place] % (Auto) 1.5, Eos % (Auto) 0.0, Baso % (Auto) 0.1, Absolute Neuts (auto) 10.5 H, Absolute Lymphs (auto) 0.99, Nucleated RBC % 0 07/04/20 04:52: Sodium 143, Potassium 2.7 L*, Chloride 108 H, Carbon Dioxide 28.0, Anion Gap 7, BUN 38 H, Creatinine 1.29 H, Estim Creat Clear Calc 35.49, Est GFR (MDRD) Af Amer 53 L, Est GFR (MDRD) Non-Af 44 L, BUN/Creatinine Ratio 29.5 H, Glucose 128 H, Calcium 8.2 L Current Medications Acetaminophen (Acetaminophen 500 Mg Tablet) 500 mg PO Q6H PRN PRN PRN Reason: Pain 1-10 or Fever Albuterol/Ipratropium (Ipratropium/Albuterol Sulfate 3 Ml Ampul.Neb) 3 ml INHALATION Q6HWA.RT [facility] Last Admin: 07/04/20 07:07 Dose: 3 ml Documented by: Aspirin (Aspirin E.C. 81 Mg Tablet) 81 mg PO DAILY@0800 [facility] Atorvastatin Calcium (Atorvastatin Calcium 80 Mg Tablet) 80 mg PO QHS [facility] Last Admin: 07/03/20 21:10 Dose: 80 mg Documented by: Budesonide (Budesonide Respules 0.5 Mg/2 Ml Ampul.Neb.) 0.5 mg INHALATION BID.RT [facility] Last Admin: 07/04/20 07:07 Dose: 0.5 mg Documented by: Carvedilol (Carvedilol 12.5 Mg Tablet) [facility] Clopidogrel Bisulfate (Clopidogrel Bisulfate 75 Mg Tablet) 75 mg PO DAILY [facility] Docusate Sodium (Docusate Sodium 100 Mg Capsule) 100 mg PO BID [facility] Last Admin: 07/03/20 21:11 Dose: 100 mg Documented by: Furosemide (Furosemide 40 Mg/4 Ml Vial) 40 mg IV Q8 [facility] Last Admin: 07/04/20 05:11 Dose: 40 mg Documented by: Heparin Sodium (Porcine) (Heparin Injection (Vial) 5,000 Unit/Ml Vial) 5,000 unit SC Q8 [facility] Last Admin: 07/04/20 05:11 Dose: 5,000 unit Documented by: Sodium Chloride () 250 mls @ 15 mls/hr IV .[id number] PRN PRN Reason: Saline Flush Last Infusion: 07/04/20 05:12 Dose: 0 mls/hr Documented by: Sodium Chloride () 250 mls @ 15 mls/hr IV .[id number] PRN PRN Reason: Additional IVPB Infusion Vancomycin IV Pharmacy to Dose (1 ea/ Sodium Chloride) 500 mls @ 250 mls/hr IV PRN PRN; Protocol PRN Reason: Rx to Dose Piperacillin Sod/Tazobactam (Sod 3.375 gm/ Sodium Chloride) 50 mls @ 12.5 mls/hr IV Q8 [facility] Last Admin: 07/04/20 05:11 Dose: 12.5 mls/hr Documented by: Vancomycin HCl 750 mg/ Sodium (Chloride) 265 mls @ 250 mls/hr IV Q24H [facility] Potassium Chloride () 10 meq in 100 mls @ 100 mls/hr IV BOLUS Q1H [facility] Stop: 07/04/20 09:44 Last Admin: 07/04/20 06:57 Dose: 100 mls/hr Documented by: Mirtazapine (Mirtazapine 15 Mg Tablet) 15 mg PO QHS [facility] Last Admin: 07/03/20 21:10 Dose: 15 mg Documented by: Pantoprazole Sodium (Pantoprazole Sodium 20 Mg Tablet) 20 mg PO DAILY [facility] Sodium Chloride (0.9% Saline Lock 10 Ml Syringe) 10 - 40 ml IV UD PRN PRN Reason: SALINE FLUSH Last Admin: 07/03/20 18:50 Dose: 20 ml Documented by: Venlafaxine HCl (Venlafaxine Xr 150 Mg Capsule) 150 mg PO DAILY [facility] Assessment/Plan Active and Suspected Problems (Last Reviewed 02/03/20 @ 03:[address] Guru Kendrick MD) Respiratory failure (Acute) Acute sepsis (Acute) Pyelonephritis (Acute) RECOMMENDATIONS: 1. Okay to continue diuretic therapy from my perspective 2. Empiric antibiotics with narrow of spectrum once cultures available 3. Continue telemetry, but likely not necessary to anticoagulate for NSTEMI 4. Consider kidney ultrasound if creatinine does not improve IMPRESSIONS: 1. Acute hypoxic respiratory failure secondary to acute on chronic systolic CHF Patient has responded well to diuretic therapy. Review of the imaging is more consistent with CHF than pneumonia in my opinion. Continue to wean oxygen as tolerated. Encourage incentive spirometer and out of bed as tolerated. 2. Severe sepsis secondary to acute pyelonephritis secondary to UTI Patient's urinalysis is suggestive of a UTI. Await culture and sensitivities. Patient currently on broad-spectrum antibiotics and is at a [facility]ci. Patient was recently hospitalized in February. Narrow antibiotic sp ectrum when cultures are available. Patient appears to be hemodynamically stable at this time and would tolerate diuretics in my opinion to help with problem #1. 3. Reported COPD Patient does not appear to be in acute exacerbation of COPD at this time. Therapeutic substitution for baseline medications would be appropriate. Would not recommend steroids from a pulmonary perspective. 4. Chronic debility/peripheral vascular disease/history of CVA/hyperkalemia/hyperlipidemia/GERD/aphasia Complicates care, management, recovery and prognosis. Consider evaluation by therapies. Okay to continue with baseline medications from my perspective. Patient significantly hypokalemic this morning, likely secondary to hyperkalemia treatment at the outside facility. Supplementation has been ordered. Inpatient E&M: [id number] Init Hosp L3
[2020-07-04] MEDS: Carvedilol 12.5 MG Tablet PO (07:51)
[2020-07-04] MEDS: Venlafaxine XR 150 MG Capsule PO (07:51)
[2020-07-04] MEDS: Docusate Sodium 100 MG Capsule PO ×2 (07:51→21:55)
[2020-07-04] MEDS: Aspirin E.C. 81 MG Tablet PO (07:51)
[2020-07-04] MEDS: Pantoprazole Sodium 20 MG Tablet PO (07:52)
[2020-07-04] MEDS: Clopidogrel Bisulfate 75 MG Tablet PO (07:52)
--- NOTE | 2020-07-04 07:58 | PCM.PN.HOSP ---
Patient Problems: Active and Suspected Problems (Last Reviewed 02/03/20 @ 03:[address] Guru Kendrick MD) Respiratory failure (Acute) Acute sepsis (Acute) Pyelonephritis (Acute) Reason for Visit: Follow-up for severe sepsis due to pyelonephritis along with acute on chronic systolic heart failure mostly due to non-STEMI Objective: Patient was directly admitted from [facility] ER.. Patient had a high temperature. K6.7 currently 2.7. Troponin elevated. BNP elevated. Patient has history of chronic systolic heart failure EF 30% in February 2020 As per nursing staff, patient has waxing and waning mental alertness. Sometimes she denies sometimes blank look, does not respond verbally or respond with minimal words To me, she did not respond to the question about flank pain, shortness of breath, cough or other history taking questions. Patient is from SNF and I think she has baseline dementia. Physical exam General: Awake, disoriented to time place, and person. Cooperative HEENT: Atraumatic, PERRLA, EOMI, Normocephalic Oral: No Gingival or Mucosal Lesions/ Ulcerations Neck: Supple, No JVD, Negative Carotid Bruits Lungs: Air entry diminished in bilateral lung bases. No crepitation/rhonchi Cardiovascular: Regular rate, Regular Rhythm, Normal S1, Normal S2, No murmurs Abdomen: Bowel Sounds Present, Soft, Non Tender, Non-Distended : Cloudy and yellow urine no renal angle tenderness. No suprapubic tenderness. Extremities: No edema, Capillary Refill Less than 3 Seconds Skin: No rashes, No breakdown Musculoskeletal: No Tenderness to Palpation of Joints or Extremities Neurological: Cranial nerves II-XII grossly intact, Deep Tendon Reflexes 2+/4 and Symmetrical, Neuro grossly intact Psych/Mental Status: Withdrawn and blank look. Vitals/I&O's: Vital Signs Temp Pulse Resp BP Pulse Ox 97 F L 80 27 H 144/74 H 91 07/04/20 05:00 07/04/20 07:00 07/04/20 07:00 07/04/20 07:00 07/04/20 07:00 Oxygen Flow Rate (L/min) 1 Oxygen Delivery Method Nasal Cannula Weight: 126 lb 5.198 oz Body Mass Index (BMI) 23.0 Finger Stick Blood Glucose 82 Intake and Output for Last 24 Hours 07/02/20 07/03/20 07/04/20 23:59 23:59 23:59 Intake Total 720.25 / 770.25 254.17 / 254.17 Output Total 1750 / 2750 1850 / 1850 Balance -1029.75 / -1979.75 -1595.83 / -1595.83 Laboratory Results 07/03/20 17:15: Lactic Acid 1.5 07/03/20 18:50: Troponin I 1.430 H* 07/03/20 22:25: Troponin I 1.410 H* 07/03/20 22:25: Sodium 143, Potassium 3.2 L, Chloride 109 H, Carbon Dioxide 24.0, Anion Gap 10, BUN 35 H, Creatinine 1.48 H, Estim Creat Clear Calc 30.93, Est GFR (MDRD) Af Amer 45 L, Est GFR (MDRD) Non-Af 37 L, BUN/Creatinine Ratio 23.6 H, Glucose 232 H, Calcium 7.9 L 07/04/20 01:40: Troponin I 0.682 H* 07/04/20 04:52: WBC 11.8 H, RBC 4.13 L, Hgb 11.5 L, Hct 37.1, MCV 89.8, MCH 27.8, MCHC 31.0 L, RDW Std Deviation 46.9 H, RDW Coeff of Frantz 14.2, Plt Count 181, MPV 12.3 H, Immature Gran % (Auto) 0.400, Neut % (Auto) 89.6 H, Lymph % (Auto) 8.4 L, [place] % (Auto) 1.5, Eos % (Auto) 0.0, Baso % (Auto) 0.1, Absolute Neuts (auto) 10.5 H, Absolute Lymphs (auto) 0.99, Nucleated RBC % 0 07/04/20 04:52: Sodium 143, Potassium 2.7 L*, Chloride 108 H, Carbon Dioxide 28.0, Anion Gap 7, BUN 38 H, Creatinine 1.29 H, Estim Creat Clear Calc 35.49, Est GFR (MDRD) Af Amer 53 L, Est GFR (MDRD) Non-Af 44 L, BUN/Creatinine Ratio 29.5 H, Glucose 128 H, Calcium 8.2 L Current Medications Acetaminophen (Acetaminophen 500 Mg Tablet) 500 mg PO Q6H PRN PRN PRN Reason: Pain 1-10 or Fever Albuterol/Ipratropium (Ipratropium/Albuterol Sulfate 3 Ml Ampul.Neb) 3 ml INHALATION Q6HWA.RT [facility] Last Admin: 07/04/20 07:07 Dose: 3 ml Documented by: Aspirin (Aspirin E.C. 81 Mg Tablet) 81 mg PO DAILY@0800 [facility] Last Admin: 07/04/20 07:51 Dose: 81 mg Documented by: Atorvastatin Calcium (Atorvastatin Calcium 80 Mg Tablet) 80 mg PO QHS [facility] Last Admin: 07/03/20 21:10 Dose: 80 mg Documented by: Budesonide (Budesonide Respules 0.5 Mg/2 Ml Ampul.Neb.) 0.5 mg INHALATION BID.RT [facility] Last Admin: 07/04/20 07:07 Dose: 0.5 mg Documented by: Carvedilol (Carvedilol 12.5 Mg Tablet) 12.5 mg PO BIDCM [facility] Last Admin: 07/04/20 07:51 Dose: 12.5 mg Documented by: Clopidogrel Bisulfate (Clopidogrel Bisulfate 75 Mg Tablet) 75 mg PO DAILY [facility] Last Admin: 07/04/20 07:52 Dose: 75 mg Documented by: Docusate Sodium (Docusate Sodium 100 Mg Capsule) 100 mg PO BID [facility] Last Admin: 07/04/20 07:51 Dose: 100 mg Documented by: Furosemide (Furosemide 40 Mg/4 Ml Vial) 40 mg IV Q8 [facility] Last Admin: 07/04/20 05:11 Dose: 40 mg Documented by: Heparin Sodium (Porcine) (Heparin Injection (Vial) 5,000 Unit/Ml Vial) 5,000 unit SC Q8 [facility] Last Admin: 07/04/20 05:11 Dose: 5,000 unit Documented by: Sodium Chloride () 250 mls @ 15 mls/hr IV .[id number] PRN PRN Reason: Saline Flush Last Infusion: 07/04/20 05:12 Dose: 0 mls/hr Documented by: Sodium Chloride () 250 mls @ 15 mls/hr IV .[id number] PRN PRN Reason: Additional IVPB Infusion Vancomycin IV Pharmacy to Dose (1 ea/ Sodium Chloride) 500 mls @ 250 mls/hr IV PRN PRN; Protocol PRN Reason: Rx to Dose Piperacillin Sod/Tazobactam (Sod 3.375 gm/ Sodium Chloride) 50 mls @ 12.5 mls/hr IV Q8 [facility] Last Admin: 07/04/20 05:11 Dose: 12.5 mls/hr Documented by: Vancomycin HCl 750 mg/ Sodium (Chloride) 265 mls @ 250 mls/hr IV Q24H [facility] Potassium Chloride () 10 meq in 100 mls @ 100 mls/hr IV BOLUS Q1H [facility] Stop: 07/04/20 09:44 Last Admin: 07/04/20 06:57 Dose: 100 mls/hr Documented by: Mirtazapine (Mirtazapine 15 Mg Tablet) 15 mg PO QHS [facility] Last Admin: 07/03/20 21:10 Dose: 15 mg Documented by: Pantoprazole Sodium (Pantoprazole Sodium 20 Mg Tablet) 20 mg PO DAILY [facility] Last Admin: 07/04/20 07:52 Dose: 20 mg Documented by: Sodium Chloride (0.9% Saline Lock 10 Ml Syringe) 10 - 40 ml IV UD PRN PRN Reason: SALINE FLUSH Last Admin: 07/03/20 18:50 Dose: 20 ml Documented by: Venlafaxine HCl (Venlafaxine Xr 150 Mg Capsule) 150 mg PO DAILY [facility] Last Admin: 07/04/20 07:51 Dose: 150 mg Documented by: STROKE Vital Signs/Narrative: Vital Signs Temp Pulse Resp BP Pulse Ox 07/04/20 07:00 80 27 H 144/74 H 91 07/04/20 06:00 68 18 120/64 97 07/04/20 05:00 97 F L 62 16 113/58 L 95 07/04/20 04:00 96.8 F L 67 16 119/57 L 96 Medical Necessity - Tobacco Use Smoking Status: Former smoker Tobacco Use: Non-smoker Assessment/Plan All Active Problems (Last Reviewed 02/03/20 @ 03:[address] Guru Kendrick MD) Respiratory failure (Acute) Acute sepsis (Acute) Pyelonephritis (Acute) CVA (cerebral vascular accident) (Resolved) This is a 64-year-old question female with multiple comorbidities was directly admitted to ICU from [facility] ER for acute kidney injury with creatinine 1.8, lactic acid 1.6 and UA suggestive of UTI. Patient also troponin 0 0.261. Chest x-ray is showed bilateral infiltrates suggestive of CHF versus pneumonia but admitting physician weighs more CHF exacerbation. BNP 4000. Covid test negative. Patient also had hyperkalemia and was given Kayexalate, insulin and glucose, IV Lasix, IV vancomycin and Zosyn and was sent to [facility] ICU. #1 acute on chronic hypoxic respiratory failure secondary to acute on chronic systolic congestive heart failure: Patient was admitted in ICU. Had 1750 mill urine output yesterday. On Lasix 40 mg IV every 8 hourly. On CHF core measures. Patient has Huerta catheter. #2 acute sepsis secondary to pyelonephritis-continue on Zosyn and vancomycin. Renal ultrasound ordered for tomorrow a.m. #3 Pneumonia ruled out-repeat chest x-ray AP view shows no significant change from previous chest x-ray and does not show significant consolidation therefore favor CHF exacerbation. B19 PCR test was negative. #4 acute on chronic systolic congestive heart failure-patient's last echocardiogram in our records shows an EF of 30%, this was performed in February 2020, I will reorder the patient's echocardiogram to see if there is any change 2D echo was done on 07/04/2020 and suggestive of severe systolic heart failure with trivial MR, TR and valvular calcification. Not able to estimate RVSP. Interpretation Summary Severe segmental systolic dysfunction (see wall motion). The estimated ejection fraction is 25 %. There is moderate to severe mitral annular calcification. Extension of the mitral annular calcification onto the base of the posterior mitral valve leaflet. Trivial mitral valve insufficiency. Trivial tricuspid valve insufficiency. Mild focal aortic valve calcification. Trivial aortic valve insufficiency. 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 Admitted with creatinine 1.48 and proved 1.29. Chronic kidney disease by history-however, patient's last creatinine here at the hospital in February 2020 was 0.96. K was 6.7 in outside ER. Repeat K2.7 and potassium is getting replaced. 9. elevated troponin-possibly secondary to non-STEMI, troponins. Serial troponins 1.43, 1.41 and 0.682, decreasing trend. Patient on aspirin, atorvastatin, carvedilol, Plavix Other comorbidities include dyslipidemia, GERD, COPD, chronic debility secondary to CVA: Patient does not seem to be in acute COPD exacerbation. Multiple comorbidities complicates the present care and expect difficult and delay recovery Total time of the visit including total time spent in counseling or coordination of care, (more than 50% of the total time, spent in obtaining medical information from nurses and other ancillary care providers,explaining to the patient about labs, imaging, diagnosis and management), , review of labs and imaging is 30 minutes. Laboratory Results 07/03/20 17:15: Lactic Acid 1.5 07/03/20 18:50: Troponin I 1.430 H* 07/03/20 22:25: Troponin I 1.410 H* 07/03/20 22:25: Sodium 143, Potassium 3.2 L, Chloride 109 H, Carbon Dioxide 24.0, Anion Gap 10, BUN 35 H, Creatinine 1.48 H, Estim Creat Clear Calc 30.93, Est GFR (MDRD) Af Amer 45 L, Est GFR (MDRD) Non-Af 37 L, BUN/Creatinine Ratio 23.6 H, Glucose 232 H, Calcium 7.9 L 07/04/20 01:40: Troponin I 0.682 H* 07/04/20 04:52: WBC 11.8 H, RBC 4.13 L, Hgb 11.5 L, Hct 37.1, MCV 89.8, MCH 27.8, MCHC 31.0 L, RDW Std Deviation 46.9 H, RDW Coeff of Frantz 14.2, Plt Count 181, MPV 12.3 H, Immature Gran % (Auto) 0.400, Neut % (Auto) 89.6 H, Lymph % (Auto) 8.4 L, [place] % (Auto) 1.5, Eos % (Auto) 0.0, Baso % (Auto) 0.1, Absolute Neuts (auto) 10.5 H, Absolute Lymphs (auto) 0.99, Nucleated RBC % 0 07/04/20 04:52: Sodium 143, Potassium 2.7 L*, Chloride 108 H, Carbon Dioxide 28.0, Anion Gap 7, BUN 38 H, Creatinine 1.29 H, Estim Creat Clear Calc 35.49, Est GFR (MDRD) Af Amer 53 L, Est GFR (MDRD) Non-Af 44 L, BUN/Creatinine Ratio 29.5 H, Glucose 128 H, Calcium 8.2 L Inpatient E&M: 98133 Subs Hosp L3
--- NOTE | 2020-07-04 10:16 | CASEMGMT ---
Patient is from [place]. She is a predatory animal exterminator resident. RAMANDEEP called [facility] to find out some information for staff. RAMANDEEP spoke with the mail handler assistant, Samanta. She was going to pass SW to patient's RN, but she then told SW normally patient uses a wheelchair. RAMANDEEP asked if she is normally on O2 and she said yes, but she had no idea how much. RMAANDEEP let RN Shelia in ICU know this limited information. RAMANDEEP will also let therapy know her mobility. Flower FERRO SALES PLANNING MANAGER
--- NOTE | 2020-07-04 12:48 | CHAPLAIN ---
Type of Pastoral Visit _x__ Initial Visit ___ Follow-up Visit ___ On-call Visit ___ General Patient Visit ___ Spiritual Assessment ___ Family Conference ___ Bereavement ___ Rapid Response ___ Code Blue ___ Other (describe below) Pastoral Care Referral From _x__ Patient ___ Family ___ Nurse ___ Physician ___ City Engineer ___ Public Health Advisor ___ Other (describe below) Sacrament/Intervention ___ Active listening ___ Anointing ___ Baptist ___ Bereavement ___ Communion ___ Carrie exploration ___ ___ Life review _x__ Prayer ___ Reconciliation ___ Sacrament of Sick _x__ Supportive presence ___ Wedding ___ Other (describe below) Pastoral Comments patient was practically nonverbal but did follow my questions and nodded or shook head appropriately; pt welcomed visit and prayer for support
--- NOTE | 2020-07-04 15:51 | CASEMGMT ---
RAMANDEEP faxed updates to [facility]. Flower FERRO CERTIFIED PESTICIDE APPLICATOR
[2020-07-04] MEDS: Atorvastatin Calcium 80 MG Tablet PO (21:55)
[2020-07-04] MEDS: Mirtazapine 15 MG Tablet PO (21:55)
[2020-07-05] VITALS (12 sets, daily range): BP systolic 116–133; BP diastolic 60–67; PULSE 78–93; RESP 16–20; TEMP 36.7–39.3; O2SAT 93–99
--- NOTE | 2020-07-05 05:00 | EKG12_ITS ---
Test Reason : Blood Pressure : / mmHG Vent. Rate : 080 BPM Atrial Rate : 080 BPM P-R Int : 134 ms QRS Dur : 084 ms QT Int : 494 ms P-R-T Axes : 000 060 049 degrees QTc Int : 569 ms Normal sinus rhythm T wave abnormality, consider anterior ischemia Prolonged QT Abnormal ECG Confirmed by DOMENICA LAUREN, JUNAID ([id number]), newspaper copy editor OBI ORELLANA ([id number]) on 07/12/2020 1:13:35 PM Referred By: Yoni Gamboa Confirmed By:JUNAID METZGER MD
--- NOTE | 2020-07-05 05:55 | US_ITS ---
STUDY: RENAL ULTRASOUND - COMPLETE REASON FOR EXAM: Female, 64 years old. ? Pyelonephritis TECHNIQUE: Ultrasound evaluation of the kidneys was performed with real-time and static urbina-scale imaging. COMPARISON: None. FINDINGS: RIGHT KIDNEY: Normal location of the right kidney, which is normal in size. The right kidney measures 10.7 cm x 4.7 cm x 3.8 cm. There is a normal cortex of the right kidney. The renal cortex measures 1.3 cm. There is no right renal mass or cyst. There are no right renal calculi. There is no right hydronephrosis. DISTAL RIGHT URETER: There is non-visualization of the distal right ureter. There is no demonstrated right ureterovesical junction calculus. There is no demonstrated right ureteral jet. LEFT KIDNEY: with mild renal atrophy. The left kidney measures 8.2 cm x 3.7 cm x 2.8 cm. There is a normal cortex of the left kidney. The renal cortex measures 1.0 cm. There is no left renal mass or cyst. There are no left renal calculi. There is no left hydronephrosis. DISTAL LEFT URETER: There is non-visualization of the distal left ureter. There is no demonstrated left ureterovesical junction calculus. There is no demonstrated left ureteral jet. BLADDER: A RUIZ catheter is seen within the empty bladder. US/Kidney and Bladder IMPRESSION: Mild atrophy of the left kidney. Electronically Signed: Gamal Tom, at 11:53 EST , Service support ,
[2020-07-05] MEDS: Carvedilol 12.5 MG Tablet PO (06:02)
[2020-07-05] MEDS: Furosemide 40 MG/4 ML Vial IV (06:02)
[2020-07-05] MEDS: Aspirin E.C. 81 MG Tablet PO (06:02)
[2020-07-05] MEDS: Clopidogrel Bisulfate 75 MG Tablet PO (06:02)
[2020-07-05] MEDS: 0.9% Saline Lock 10 ML Syringe IV ×3 (06:03→22:33)
[2020-07-05] MEDS: Budesonide Respules 0.5 MG/2 ML AMPUL.NEB. INHALATION ×2 (06:44→18:45)
[2020-07-05] MEDS: Ipratropium/Albuterol Sulfate 3 ML AMPUL.NEB INHALATION ×3 (06:44→18:45)
[2020-07-05 07:05] LABS: Absolute Lymphocyte Count 0.94 X10^3/uL (0.83-4.51); Absolute Neutrophil Count 9.2 X10^3/uL (2.0-7.7); Basophil# 0.01 X10^3/uL; Basophil% 0.1 % (0-1); Hematocrit 38.1 % (37-47); Hemoglobin 11.8 g/dL (12.0-15.0); Lymphocyte # 0.94 X10^3/ul (4.0); Lymphocyte % 9.1 % (19-41); Mean Corpuscular Hgb 27.1 pg (27.0-32.0); Mean Corpuscular Volume 87.4 fL (81-99); Mean Platelet Vol. 12.9 fl (6.2-12.0); Monocyte% 1.9 % (0-10); NRBC Flagged by Analyzer 0 % (0-5); Neutrophil # 9.17 X10^3/uL (2.7-7.7); Neutrophil % 88.4 % (47-70); Platelet Count 171 K/mm3 (150-450); RBC Distribution Width CV 14.2 % (11.6-14.6); RBC Distribution Width SD 45.9 fl (35.1-43.9); Red Blood Count 4.36 M/mm3 (4.2-5.4); White Blood Count 10.4 K/mm3 (4.4-11.0)
[2020-07-05 07:29] LABS: ALB/GLOB Ratio 0.7 RATIO (0.9-2.4); AST(SGOT) 981 U/L (15-37); Alanine Aminotransfer ALT/SGPT 948 U/L (13-56); Albumin, Serum 3.2 g/dL (3.2-5.0); Alkaline Phosphatase 132 U/L (45-117); Anion Gap 9 (5-15); BUN 41 mg/dL (7-18); BUN/Creat Ratio 27.7 RATIO (10-20); Calcium,Total 8.5 mg/dL (8.5-10.1); Chloride 105 mmol/L (98-107); Creatinine, Serum 1.48 mg/dL (0.55-1.02); EST Glomerular Filtration Rate 37 mL/min (>60); Est Glom Filt Rate - Afr Amer 45 mL/min (>60); Estimated Creatinine Clearance 30.93 ml/min; Globulin 4.8 g/dL (2.2-4.2); Glucose 115 mg/dL (74-106); Magnesium 1.9 mg/dL (1.6-2.6); Potassium 3.1 mmol/L (3.5-5.1); Sodium Level 142 mmol/L (136-145)
[2020-07-05 08:44] LABS: Phosphorus 3.7 mg/dL (2.5-4.9)
[2020-07-05] MEDS: Potassium Chloride 10mEq/100mL 10 MEQ/100 ML IV.SOLN. 100 MEQ IV BOLUS ×2 (09:28→10:36)
[2020-07-05] MEDS: Docusate Sodium 100 MG Capsule PO (10:40)
[2020-07-05] MEDS: Pantoprazole Sodium 20 MG Tablet PO (10:41)
--- NOTE | 2020-07-05 11:18 | PN_ITS ---
Patient Problems: Active and Suspected Problems (Last Reviewed 02/03/20 @ 03:[address] Guru Kendrick MD) Respiratory failure (Acute) Acute sepsis (Acute) Pyelonephritis (Acute) Reason for Visit: Follow-up for acute hypoxic respiratory failure secondary to CHF exacerbation and non-STEMI Objective: Seen and examined. Patient shortness of breath is improved but he still on 3 L of oxygen. Blood pressure and heart rate is controlled. Examined in the presence of nurse. On quality assurance monitor body sinus rhythm. Physical exam General: Awake, answers in one-word simple questions. Seems more interactive than yesterday. Oriented x2. Cooperative HEENT: Atraumatic, PERRLA, EOMI, Normocephalic Oral: No Gingival or Mucosal Lesions/ Ulcerations Neck: Supple, No JVD, Negative Carotid Bruits Lungs: Air entry diminished in bilateral lung bases. No crepitation/rhonchi Cardiovascular: Regular rate, Regular Rhythm, Normal S1, Normal S2, No murmurs Abdomen: Bowel Sounds Present, Soft, Non Tender, Non-Distended : Cloudy and yellow urine no renal angle tenderness. No suprapubic tenderness. Extremities: No edema, Capillary Refill Less than 3 Seconds Skin: No rashes, No breakdown Musculoskeletal: No Tenderness to Palpation of Joints or Extremities Neurological: Cranial nerves II-XII grossly intact, Deep Tendon Reflexes 2+/4 and Symmetrical, Neuro grossly intact Psych/Mental Status: Vitals/I&O's: Vital Signs Temp Pulse Resp BP Pulse Ox 98.9 F 78 20 H 133/67 H 93 07/05/20 05:55 07/05/20 08:20 07/05/20 05:55 07/05/20 05:55 07/05/20 05:55 Oxygen Flow Rate (L/min) 4 Oxygen Delivery Method Nasal Cannula Weight: 126 lb 12.253 oz Body Mass Index (BMI) 23.0 Finger Stick Blood Glucose 82 Intake and Output for Last 24 Hours 07/03/20 07/04/20 07/05/20 23:59 23:59 23:59 Intake Total 720.25 / 770.25 1022.50 / 1022.50 282.75 / 282.75 Output Total 1750 / 2750 3250 / 3250 700 / 700 Balance -1029.75 / -1979.75 -2227.50 / -2227.50 -417.25 / -417.25 Laboratory Results 07/05/20 06:20: WBC 10.4, RBC 4.36, Hgb 11.8 L, Hct 38.1, MCV 87.4, MCH 27.1, MCHC 31.0 L, RDW Std Deviation 45.9 H, RDW Coeff of Frantz 14.2, Plt Count 171, MPV 12.9 H, Immature Gran % (Auto) 0.500, Neut % (Auto) 88.4 H, Lymph % (Auto) 9.1 L , [place] % (Auto) 1.9, Eos % (Auto) 0.0, Baso % (Auto) 0.1, Absolute Neuts (auto) 9.2 H, Absolute Lymphs (auto) 0.94, Nucleated RBC % 0 07/05/20 06:20: Sodium 142, Potassium 3.1 L, Chloride 105, Carbon Dioxide 28.0, Anion Gap 9, BUN 41 H, Creatinine 1.48 H, Estim Creat Clear Calc 30.93, Est GFR (MDRD) Af Amer 45 L, Est GFR (MDRD) Non-Af 37 L, BUN/Creatinine Ratio 27.7 H, Glucose 115 H, Calcium 8.5, Magnesium 1.9, Total Bilirubin 1.10 H, AST 981 H, ALT 948 H, Alkaline Phosphatase 132 H, Total Protein 8.0, Albumin 3.2, Globulin 4.8 H, Albumin/Globulin Ratio 0.7 L 07/05/20 06:20: Phosphorus 3.7 Current Medications Acetaminophen (Acetaminophen 500 Mg Tablet) 500 mg PO Q6H PRN PRN PRN Reason: Pain 1-10 or Fever Albuterol/Ipratropium (Ipratropium/Albuterol Sulfate 3 Ml Ampul.Neb) 3 ml INHALATION Q6HWA.RT [facility] Last Admin: 07/05/20 06:44 Dose: 3 ml Documented by: Aspirin (Aspirin E.C. 81 Mg Tablet) 81 mg PO DAILY@0800 [facility] Last Admin: 07/05/20 06:02 Dose: 81 mg Documented by: Atorvastatin Calcium (Atorvastatin Calcium 80 Mg Tablet) 80 mg PO QHS [facility] Last Admin: 07/04/20 21:55 Dose: 80 mg Documented by: Budesonide (Budesonide Respules 0.5 Mg/2 Ml Ampul.Neb.) 0.5 mg INHALATION BI D.RT [facility] Last Admin: 07/05/20 06:44 Dose: 0.5 mg Documented by: Carvedilol (Carvedilol 12.5 Mg Tablet) 12.5 mg PO BIDCM [facility] Last Admin: 07/05/20 06:02 Dose: 12.5 mg Documented by: Clopidogrel Bisulfate (Clopidogrel Bisulfate 75 Mg Tablet) 75 mg PO DAILY [facility] Last Admin: 07/05/20 06:02 Dose: 75 mg Documented by: Docusate Sodium (Docusate Sodium 100 Mg Capsule) 100 mg PO BID [facility] Last Admin: 07/05/20 10:40 Dose: 100 mg Documented by: Furosemide (Furosemide 40 Mg/4 Ml Vial) 40 mg IV Q8 [facility] Last Admin: 07/05/20 06:02 Dose: 40 mg Documented by: Heparin Sodium (Porcine) (Heparin Injection (Vial) 5,000 Unit/Ml Vial) 5,000 unit SC Q8 [facility] Last Admin: 07/05/20 05:00 Dose: Not Given Documented by: Sodium Chloride () 250 mls @ 15 mls/hr IV .[id number] PRN PRN Reason: Saline Flush Last Admin: 07/05/20 09:36 Dose: 15 mls/hr Documented by: Sodium Chloride () 250 mls @ 15 mls/hr IV .[id number] PRN PRN Reason: Additional IVPB Infusion Vancomycin IV Pharmacy to Dose (1 ea/ Sodium Chloride) 500 mls @ 250 mls/hr IV PRN PRN; Protocol PRN Reason: Rx to Dose Piperacillin Sod/Tazobactam (Sod 3.375 gm/ Sodium Chloride) 50 mls @ 12.5 mls/hr IV Q8 [facility] Last Infusion: 07/05/20 10:15 Dose: Infused Documented by: Vancomycin HCl 750 mg/ Sodium (Chloride) 265 mls @ 250 mls/hr IV Q24H [facility] Last Infusion: 07/04/20 16:28 Dose: Infused Documented by: Mirtazapine (Mirtazapine 15 Mg Tablet) 15 mg PO QHS [facility] Last Admin: 07/04/20 21:55 Dose: 15 mg Documented by: Pantoprazole Sodium (Pantoprazole Sodium 20 Mg Tablet) 20 mg PO DAILY [facility] Last Admin: 07/05/20 10:41 Dose: 20 mg Documented by: Sodium Chloride (0.9% Saline Lock 10 Ml Syringe) 10 - 40 ml IV UD PRN PRN Reason: SALINE FLUSH Last Admin: 07/05/20 06:03 Dose: 20 ml Documented by: Venlafaxine HCl (Venlafaxine Xr 150 Mg Capsule) 150 mg PO DAILY [facility] Last Admin: 07/04/20 07:51 Dose: 150 mg Documented by: STROKE Vital Signs/Narrative: Vital Signs Pulse 07/05/20 08:20 78 Medical Necessity - Tobacco Use Smoking Status: Former smoker Tobacco Use: Non-smoker Assessment/Plan All Active Problems (Last Reviewed 02/03/20 @ 03:[address] Guru Kendrick MD) Respiratory failure (Acute) Acute sepsis (Acute) Pyelonephritis (Acute) CVA (cerebral vascular accident) (Resolved) This is a 64-year-old question female with multiple comorbidities was directly admitted to ICU from [facility] ER for acute kidney injury with creatinine 1.8, lactic acid 1.6 and UA suggestive of UTI. Patient also troponin 0 0.261. Chest x-ray is showed bilateral infiltrates suggestive of CHF versus pneumonia but admitting physician weighs more CHF exacerbation. BNP 4000. Covid test negative. Patient also had hyperkalemia and was given Kayexalate, insulin and glucose, IV Lasix, IV vancomycin and Zosyn and was sent to [facility] ICU. #1 acute on chronic hypoxic respiratory failure secondary to acute on chronic systolic congestive heart failure status post AICD: Patient was admitted in ICU. Had 1750 mill urine output yesterday. On Lasix 40 mg IV every 8 hourly. On CHF core measures. Patient has Huerta catheter. 07/05: Discussed with the color artist. I called patient's daughter Mrs. Mary Gaines [phone] to get more information about previous cardiac work-up. Her daughter said she has not seen color artist for many years and in PCP for last few years. She has been in the custodial for for 5 years has not seen PCP too. She is also not sure where she had PCI or CABG and AICD #2 acute sepsis secondary to cystitis due to Proteus mirabilis and GAIL from fluid shift/Lasix/CHF exacerbation: Initially on vancomycin and Zosyn. Antibiotic narrowed down to ceftriaxone based on the urine culture Proteus mirabilis more than 100,000 colonies. Kidney ultrasound shows mild atrophy of left kidney. Normal size of right kidney no hydronephrosis. Mild hypokalemia, potassium is getting replaced. Magnesium 1.9. Was 3.7. Her creatinine was 0.96 in February 2020. Increased to 1.48 mainly due to diuretic/hemodynamic fluid shift. Lasix dose decreased to 40 mg IV daily. #3 Pneumonia ruled out-repeat chest x-ray AP view shows no significant change from previous chest x-ray and does not show significant consolidation therefore favor CHF exacerbation. B19 PCR test was negative. #4 acute on chronic systolic congestive heart failure-patient's last echocardiogram in our records shows an EF of 30% in February 2020 2D echo was done on 07/04/2020 and suggestive of severe systolic heart failure with trivial MR, TR and valvular calcification. Not able to estimate RVSP. Interpretation Summary Severe segmental systolic dysfunction (see wall motion). The estimated ejection fraction is 25 %. There is moderate to severe mitral annular calcification. Extension of the mitral annular calcification onto the base of the posterior mitral valve leaflet. Trivial mitral valve insufficiency. Trivial tricuspid valve insufficiency. Mild focal aortic valve calcification. Trivial aortic valve insufficiency. 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 Admitted with creatinine 1.48 and proved 1.29. Chronic kidney disease by history-however, patient's last creatinine here at the hospital in February 2020 was 0.96. K was 6.7 in outside ER. Repeat K2.7 and potassium is getting replaced. 9. elevated troponin-possibly secondary to non-STEMI, troponins. Serial troponins 1.43, 1.41 and 0.682, decreasing trend. Patient on aspirin, atorvastatin, carvedilol, Plavix Other comorbidities include dyslipidemia, GERD, COPD, chronic debility secondary to CVA: Patient does not seem to be in acute COPD exacerbation. Multiple comorbidities complicates the present care and expect difficult and delay recovery Total time of the visit including total time spent in counseling or coordination of care, (more than 50% of the total time, spent in obtaining medical information from nurses and other ancillary care providers,explaining to the patient about labs, imaging, diagnosis and management), , review of labs and imaging is 30 minutes. Laboratory Results 07/05/20 06:20: WBC 10.4, RBC 4.36, Hgb 11.8 L, Hct 38.1, MCV 87.4, MCH 27.1, MCHC 31.0 L, RDW Std Deviation 45.9 H, RDW Coeff of Frantz 14.2, Plt Count 171, MPV 12.9 H, Immature Gran % (Auto) 0.500, Neut % (Auto) 88.4 H, Lymph % (Auto) 9.1 L , [place] % (Auto) 1.9, Eos % (Auto) 0.0, Baso % (Auto) 0.1, Absolute Neuts (auto) 9.2 H, Absolute Lymphs (auto) 0.94, Nucleated RBC % 0 07/05/20 06:20: Sodium 142, Potassium 3.1 L, Chloride 105, Carbon Dioxide 28.0, Anion Gap 9, BUN 41 H, Creatinine 1.48 H, Estim Creat Clear Calc 30.93, Est GFR (MDRD) Af Amer 45 L, Est GFR (MDRD) Non-Af 37 L, BUN/Creatinine Ratio 27.7 H, Glucose 115 H, Calcium 8.5, Magnesium 1.9, Total Bilirubin 1.10 H, AST 981 H, ALT 948 H, Alkaline Phosphatase 132 H, Total Protein 8.0, Albumin 3.2, Globulin 4.8 H, Albumin/Globulin Ratio 0.7 L 07/05/20 06:20: Phosphorus 3.7 07/05/20 12:17: Vancomycin Trough 14.2 Clinical Impression(s) from Imaging Studies Chest X-Ray 07/04/20 05:55 IMPRESSION: Minimally increased interstitial markings most marked at the right lung base. There is no other significant interval change. Renal Ultrasound 07/05/20 05:55 IMPRESSION: Mild atrophy of the left kidney. Electronically Signed: Gamal Tom, at 11:53 EST , Service support , Inpatient E&M: [id number] Subs Hosp L2
[2020-07-05] MEDS: Venlafaxine XR 150 MG Capsule PO (11:59)
[2020-07-05 12:55] LABS: Vancomycin, Trough Level 14.2 ug/mL (5.0-15.0)
--- NOTE | 2020-07-05 13:36 | PCM.RX.CS ---
Consult Pharmacy has been consulted to manage selected antiobiotic: Vancomycin Type of Consult: Follow-up Suspected Infection: Sepsis Prior Doses of Antibiotics Received/Current Regimen: Currently on 750mg iv q24h. Labs: Sodium 142 mmol/L (136-145) 07/05/20 06:20 Potassium 3.1 mmol/L (3.5-5.1) L 07/05/20 06:20 Chloride 105 mmol/L (98-107) 07/05/20 06:20 Carbon Dioxide 28.0 mmol/L (21.0-32.0) 07/05/20 06:20 Anion Gap 9 (5-15) 07/05/20 06:20 BUN 41 mg/dL (7-18) H 07/05/20 06:20 Creatinine 1.48 mg/dL (0.55-1.02) H 07/05/20 06:20 Est GFR (MDRD) Af Amer 45 mL/min (>60) L 07/05/20 06:20 Est GFR (MDRD) Non-Af 37 mL/min (>60) L 07/05/20 06:20 BUN/Creatinine Ratio 27.7 RATIO (10-20) H 07/05/20 06:20 Glucose 115 mg/dL (74-106) H 07/05/20 06:20 Vancomycin Trough 14.2 ug/mL (5.0-15.0) 07/05/20 12:17 Weight used for dosin.5 kg Estimated Creatinine Clearance: ~31ml/min Goal Trough: 15-20 mcg/mL Pharmacy Plan for Drug Dosing: Tr level today 14.2 (goal range 15-20 mcg/ml). Cr 1.48 and CrCl ~31ml/min. Will increase dose to 1gm iv q24h. Another trough level ordered for 07.07.20. Pharmacy Service will continue to monitor and adjust dosing as required. Follow-Up Labs: Trough Vancomycin - 07.07.20 @1230
[2020-07-05] MEDS: Heparin Injection (Vial) 5,000 UNIT/ML VIAL 5000 UNIT SC ×2 (14:28→22:32)
--- NOTE | 2020-07-05 16:01 | PCM.CONS.C ---
Problem List (1) NSTEMI (non-ST elevated myocardial infarction) Status: Acute (2) CHF (congestive heart failure) Status: Acute Qualifiers: Heart failure type: systolic Heart failure chronicity: acute on chronic Qualified Code(s): I50.23 - Acute on chronic systolic (congestive) heart failure (3) CAD (coronary artery disease) Status: Chronic Qualifiers: Coronary Disease-Associated Artery/Lesion type: [place] artery [place] vs. transplanted heart: [place] heart Associated angina: without angina Qualified Code(s): I25.10 - Atherosclerotic heart disease of [place] coronary artery without angina pectoris (4) Cardiomyopathy Status: Chronic (5) Status post coronary artery bypass graft Status: Chronic (6) Status post implantation of automatic cardioverter/defibrillator (AICD) Status: Chronic (7) Hyperlipidemia Status: Chronic (8) COPD (chronic obstructive pulmonary disease) Status: Chronic (9) CVA (cerebral vascular accident) Status: Resolved (10) Pyelonephritis Status: Acute (11) Respiratory failure Status: Acute Qualifiers: Chronicity: acute on chronic Respiratory failure complication: hypoxia Qualified Code(s): J96.21 - Acute and chronic respiratory failure with hypoxia (12) Acute sepsis Status: Acute (13) Stage III chronic kidney disease Status: Chronic Reason for Consult Date of Consultation: 07/05/20 History of Present Illness: The patient is a 64 year old white female with a past cardiovascular history that apparently has included hyperlipidemia, CAD, ischemic mediated cardiomyopathy, chronic systolic CHF, CABG, status post ICD placement, superimposed upon COPD, 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 At the present time the patient is only able to minimally nod her head yes or no to questions. She does seem to acknowledge that she has had cardiovascular disease and underwent open heart surgery in the past and ICD placement in the past. However she does not know, nor can she expressed, when or where. She appears to deny any ongoing chest discomfort. She does admit that she did originally feel short of breath. There has been no peripheral pitting edema. There has been no report of near syncope or syncope. According to the [facility] medical staff she was transferred from a local emergency department at this facility based upon concerns of fever and infectious disease related etiologies. She was initially in the ICU. She is also has been transferred to the PCU. She has been treated with a combination of medications which from a cardiovascular standpoint included IV diuretics and from an infectious disease standpoint IV antibiotics. She resides in an [facility]. [] Past Medical History Allergies/Adverse Reactions: Allergies codeine Allergy (Verified 02/29/20 09:15) PT UNSURE OF REACTION diphenhydramine Allergy (Verified 02/29/20 09:15) PT UNSURE OF REACTION iodine Allergy (Verified 02/29/20 09:15) PT UNSURE OF REACTION Iodinated Contrast Media Adverse Reaction (Verified 02/29/20 12:23) PT UNSURE OF REACTION Home Medications: Ambulatory Orders Medication Instructions Recorded Acetaminophen [Tylenol] 500 mg PO Q6H PRN PRN 02/02/20 Aspirin E.C. [Ecotrin] 81 mg PO DAILY@0800 02/02/20 Carvedilol [Coreg] 6.25 mg PO BIDCM 02/02/20 Cetirizine HCl [Zyrtec] 10 mg PO QHS 02/02/20 Docusate Sodium [Colace] 100 mg PO BID 02/02/20 Fluticasone 44 Mcg [Flovent 44 Mcg] 2 puff INHALATION BID 02/02/20 Furosemide [Lasix] 20 mg PO DAILY 02/02/20 Guaifenesin [Mucinex] 600 mg PO BID 02/02/20 Mirtazapine [Remeron] 15 mg PO QHS 02/02/20 Oxybutynin [Ditropan] 5 mg PO TID 02/02/20 Pantoprazole Sodium [Protonix] 20 mg PO DAILY 02/02/20 Venlafaxine HCl [Venlafaxine HCl 150 mg PO DAILY 02/02/20 ER] Albuterol Sulfate [Ventolin Hfa] 2 puff INHALATION Q6H PRN 02/03/20 Benzocaine/Menthol [Cepacol Sore 1 each MM Q2H PRN #0 02/03/20 Throat Lozenge] Fluticasone 0.05% [Flonase Nasal 1 spray NASAL QHS 02/29/20 [place]] Ipratropium/Albuterol Sulfate 3 ml IH Q6H PRN 02/29/20 [Iprat-Albut 0.5-3(2.5) mg/3 ml] Tizanidine HCl 4 mg PO DAILY PRN 02/29/20 Atorvastatin Calcium [Lipitor] 80 mg PO QHS #0 03/02/20 Clopidogrel Bisulfate [Plavix] 75 mg PO DAILY #30 tab 03/02/20 Gabapentin 300 mg PO QHS 07/03/20 Past Medical History (Chronic Problems): Chronic Problems (Last Reviewed 02/03/20 @ 03:[address] Guru Kendrick MD) Acute on chronic systolic CHF (congestive heart failure) (Chronic) CAD (coronary artery disease) (Chronic) Cardiomyopathy (Chronic) Status post implantation of automatic cardioverter/defibrillator (AICD) (Chronic) Status post coronary artery bypass graft (Chronic) Coronary artery disease (Chronic) Stage III chronic kidney disease (Chronic) Depression (Chronic) Hyperlipidemia (Chronic) COPD (chronic obstructive pulmonary disease) (Chronic) GERD (gastroesophageal reflux disease) (Chronic) Chronic combined systolic and diastolic CHF (congestive heart failure) (Chronic) Surgical History: coronary bypass surgery, pacemaker implantation - ICD placement, tonsillectomy, - - Tubal ligation; mitral valve prolapse operation. 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 Denies: Fatigue, Night Sweats Cardiovascular: Reports: Shortness of Breath. Denies: Chest Discomfort, Orthopnea, PND, Peripheral Edema, Palpitations, Lightheadedness, Dizziness, Near Syncope, Syncope Respiratory: Reports: Shortness of Breath. Denies: Cough, Sputum Production, Hemoptysis Gastrointestinal: Denies: Hematemesis, Hematochezia, Melena Genitourinary: Denies: Dysuria, Hematuria Skin: Denies: Rash Subjectve: This is an older than stated age appearing 64-year-old white female who appears to be resting comfortably at the moment in no acute distress. Objective: Vital Signs Temp Pulse Resp BP Pulse Ox 98.1 F 84 19 H 116/61 99 07/05/20 11:55 07/05/20 15:46 07/05/20 13:50 07/05/20 11:55 07/05/20 11:55 Oxygen Flow Rate (L/min) 3 Oxygen Delivery Method Nasal Cannula Weight: 126 lb 12.253 oz Body Mass Index (BMI) 23.0 Finger Stick Blood Glucose 82 Intake and Output for Last 24 Hours 07/03/20 07/04/20 07/05/20 23:59 23:59 23:59 Intake Total 720.25 / 770.25 1022.50 / 1022.50 677.75 / 677.75 Output Total 1750 / 2750 3250 / 3250 1300 / 1300 Balance -1029.75 / -1979.75 -2227.50 / -2227.50 -622.25 / -622.25 General: Awake, Alert, Cooperative, No Acute Distress HEENT: Atraumatic, Normocephalic, PERRL, EOMI, Sclera Non Icteric Neck: Supple, Good ROM, No JVD Lungs: Diminished Yusuf Bases Cardiovascular: Regular Rhythm, Normal S1, Normal S2 Abdomen: Bowel Sounds Present, Soft, Non Tender Extremities: No edema Psych/Mental Status: Flat Affect 07/05/20 06:20: WBC 10.4, RBC 4.36, Hgb 11.8 L, Hct 38.1, MCV 87.4, MCH 27.1, MCHC 31.0 L, Plt Count 171, MPV 12.9 H, Immature Gran % (Auto) 0.500, Neut % (Auto) 88.4 H, Lymph % (Auto) 9.1 L, [place] % (Auto) 1.9, Eos % (Auto) 0.0, Baso % (Auto) 0.1, Absolute Neuts (auto) 9.2 H, Nucleated RBC % 0 07/05/20 06:20: Sodium 142, Potassium 3.1 L, Chloride 105, Carbon Dioxide 28.0, Anion Gap 9, BUN 41 H, Creatinine 1.48 H, Est GFR (MDRD) Af Amer 45 L, Est GFR (MDRD) Non-Af 37 L, BUN/Creatinine Ratio 27.7 H, Glucose 115 H, Calcium 8.5, Magnesium 1.9, Total Bilirubin 1.10 H 07/05/20 06:20: Phosphorus 3.7 ECG: Sinus rhythm; T wave abnormality; consider myocardial ischemia-anterior ECHO: 07-04-2020 Interpretation Summary The study was technically difficult. Contrast injection was performed. Severe segmental systolic dysfunction (see wall motion). The estimated ejection fraction is 25 %. There is moderate to severe mitral annular calcification. Extension of the mitral annular calcification onto the base of the posterior mitral valve leaflet. Trivial mitral valve insufficiency. Trivial tricuspid valve insufficiency. Mild focal aortic valve calcification. Trivial aortic valve insufficiency. Unable to estimate RV systolic pressure/pulmonary artery pressure due to technically difficult study. Diastolic function is indeterminate. ICD or pacer leads identified within the right atrium ICD or pacer leads identified within the right ventricle. Chest x-ray: Preliminary evaluation: Status post open heart surgery changes, status post dual-chamber ICD placement, diffuse increased pulmonary vascularity/interstitial findings, please see official report Assessment/Plan 1. Non-ST segment elevation OH The patient technically has a non-ST segment elevation [place] based upon her cardiac enzyme findings. It is unclear whether, in light of the patient's multiple issues with respect to her fever and infectious disease symptoms, as to whether this was truly a primary event versus a secondary event from supply demand mismatch related to her secondary events. At the moment she appears to be without acute symptoms. Her cardiac enzymes have trended down. She has undergone evaluation with a transthoracic echocardiogram as noted. This was compared to a previous study which demonstrated similar type findings with respect to her overall left ventricular wall motion and systolic function and LVEF. At the moment she is going to continue to be monitored. She will continue medical management. She does not appear to be an ideal candidate based upon multiple factors including appearing older than her stated age, her ongoing noncardiovascular issues/infectious disease issues, her previous CVA with subsequent residual effects with right hemiparesis and expressive aphasia, superimposed upon her [facility] sedentary lifestyle, for further evaluation in the cardiac catheterization laboratory. 2. CHF: Acute on chronic systolic The patient does appear to have findings which would have been compatible with an element of acute on chronic systolic mediated CHF with her original presentation. At the moment after medical therapy she appears to be relatively calm with her underlying pulmonary status. She has been reassessed with respect to her ventricular wall motion and systolic function. Her echocardiogram is noted. At the present time she will be asked to continue medical management with subsequent adjustment of her diuretics as needed. 3. CAD status post CABG The patient has undergone CABG in the past. The details of which are unknown at this time. A request has been made to the [facility] staff to attempt to locate her previous cardiovascular history and studies for continuity of care. At the moment she will continue conservative medical management. 4. Ischemic mediated cardiomyopathy The patient appears to have a history of a diminished LV systolic function/LVEF. Thus she appears to be a candidate for concerns of acute on chronic systolic mediated CHF. She will continue medical management. 5. ICD The patient does appear to have a dual-chamber ICD in place. There is been no report of ICD discharge. An attempt will be made to locate previous records for continuity of care. Her ICD can be interrogated as needed. 6. Hyperlipidemia She will continue risk factor modification medical therapy as deemed appropriate. 7. COPD She does have history of COPD. She will continue evaluation care per internal medicine. 8. CVA She has had a CVA. It appears she has been left with right-sided deficits as well as an expressive aphasia. She does not vocalize at this time. She only minimally nods her head in a yes or no manner. It appears this has left her relatively sedentary in an ECF. Unfortunately her quality of life appears to be markedly diminished based upon this. This does play a role with respect to further invasive evaluation and care such as diagnostic cardiac catheterization studies, etc. 9. Pyelonephritis It appears from her initial H&P she was diagnosed with pyelonephritis. She has been on medical management. 10. Pneumonia There is also been concerned that she may have had pneumonia. Again she has been treated medically with IV antibiotics. 11. Sepsis Based upon her initial presentation she was diagnosed with sepsis thought related to her underlying infectious disease concerns. She is continue evaluation care per internal medicine. 12. Renal insufficiency She does have an element of renal insufficiency. This may be related to her multiple medical issues including her acute issues as well as her volume status changes, etc. This would also have to be monitored and taken into consideration if she were to go through any type of invasive evaluation requiring IV contrast related agents, etc. based upon concerns of IV contrast related nephropathy. Comment: The patient's case has been previously discussed and reviewed with Dr. Valencia.
[2020-07-05] MEDS: Ceftriaxone 1 GM/50 ML BAG IV (22:31)
--- NOTE | 2020-07-05 23:05 | RAD_ITS ---
STUDY: X-RAY CHEST REASON FOR EXAM: Female, 64 years old. Possible infection. CHF. Respiratory failure. Pneumonia. Cystitis. TECHNIQUE: Single AP portable view of the chest. COMPARISON: 07/04/2020. FINDINGS: Minimally decreased inspiratory effort when compared to the previous study. There is continued mildly increased interstitial markings without focal consolidation or mass. There is no demonstrated pleural abnormality. Sternal cerclage wires and vascular clips are present from a prior sternotomy and coronary artery bypass graft procedure (CABG). Stable cardiac pacemaker. The heart is normal in size. Normal mediastinum and mag. Normal visualized pulmonary arteries. There is atherosclerotic calcification of the aortic arch with tortuosity. The thoracic spine is obscured by the mediastinum. Normal visualized ribs, clavicles, and shoulders. There is no demonstrated abnormality of the visualized soft tissue structures of the upper abdomen. RAD/Chest 1 View (Portable) IMPRESSION: No major interval change when compared to the previous examination. Electronically Signed: Neo Castillo DO at 23:28 EST Tel [phone], Service support ,
[2020-07-05] MEDS: Acetaminophen 650 MG Suppository RECTAL (23:33)
[2020-07-06] VITALS (16 sets, daily range): BP systolic 110–158; BP diastolic 56–85; PULSE 64–85; RESP 16–20; TEMP 36.1–37.6; O2SAT 79–96
--- NOTE | 2020-07-06 03:41 | PCM.PN.BLA ---
Progress Note Patient with a temperature of 102.8 Fahrenheit. Also patient with increasing oxygen requirement. Stat chest x-ray and Covid PCR ordered. Chest x-ray not different from previous. Covid test returned positive. Patient is n.p.o. secondary to dysphagia. Start patient on Decadron IV. Patient with GAIL on CKD stage III and acute pyelonephritis. Estimated GFR more than 30. Will start patient on remdesivir. STROKE Vital Signs/Narrative: Vital Signs Temp Pulse Resp BP Pulse Ox 07/06/20 01:50 99.7 F H 85 19 H 136/64 H 93
[2020-07-06] MEDS: dexAMETHasone 10 MG/ML Vial 6 MG IV (04:55)
[2020-07-06] MEDS: 0.9% Saline Lock 10 ML Syringe IV ×2 (04:55→10:12)
[2020-07-06] MEDS: Heparin Injection (Vial) 5,000 UNIT/ML VIAL 5000 UNIT SC ×3 (04:57→21:35)
[2020-07-06 06:51] LABS: Absolute Lymphocyte Count 0.78 X10^3/uL (0.83-4.51); Absolute Neutrophil Count 6.2 X10^3/uL (2.0-7.7); Basophil# 0.01 X10^3/uL; Basophil% 0.1 % (0-1); Hematocrit 34.3 % (37-47); Hemoglobin 10.7 g/dL (12.0-15.0); Lymphocyte # 0.78 X10^3/ul (4.0); Lymphocyte % 10.9 % (19-41); Mean Corp Hgb Conc 31.2 g/dL (32-36); Mean Corpuscular Hgb 27.4 pg (27.0-32.0); Mean Corpuscular Volume 87.7 fL (81-99); Mean Platelet Vol. 12.7 fl (6.2-12.0); Monocyte# 0.16 X10^3/uL; Monocyte% 2.2 % (0-10); NRBC Flagged by Analyzer 0 % (0-5); Neutrophil # 6.18 X10^3/uL (2.7-7.7); Neutrophil % 86.2 % (47-70); Platelet Count 174 K/mm3 (150-450); RBC Distribution Width CV 14.4 % (11.6-14.6); RBC Distribution Width SD 46.4 fl (35.1-43.9); Red Blood Count 3.91 M/mm3 (4.2-5.4); White Blood Count 7.2 K/mm3 (4.4-11.0)
[2020-07-06] MEDS: Budesonide Respules 0.5 MG/2 ML AMPUL.NEB. INHALATION ×2 (07:23→21:46)
[2020-07-06] MEDS: Ipratropium/Albuterol Sulfate 3 ML AMPUL.NEB INHALATION ×3 (07:23→21:46)
[2020-07-06 07:40] LABS: ALB/GLOB Ratio 0.9 RATIO (0.9-2.4); AST(SGOT) 1322 U/L (15-37); Alanine Aminotransfer ALT/SGPT 1585 U/L (13-56); Albumin, Serum 3.1 g/dL (3.2-5.0); Alkaline Phosphatase 128 U/L (45-117); Anion Gap 9 (5-15); BUN 41 mg/dL (7-18); BUN/Creat Ratio 30.8 RATIO (10-20); Calcium,Total 8.2 mg/dL (8.5-10.1); Chloride 111 mmol/L (98-107); Creatinine, Serum 1.33 mg/dL (0.55-1.02); EST Glomerular Filtration Rate 42 mL/min (>60); Est Glom Filt Rate - Afr Amer 51 mL/min (>60); Estimated Creatinine Clearance 34.42 ml/min; Globulin 3.6 g/dL (2.2-4.2); Glucose 103 mg/dL (74-106); Potassium 2.9 mmol/L (3.5-5.1); Protein, Total 6.7 g/dL (6.4-8.2); Sodium Level 147 mmol/L (136-145)
--- NOTE | 2020-07-06 09:24 | CASEMGMT ---
SW faxed updates to [facility]. SW included her positive COVID test. Plan: d/c back to [facility] when medically ready. Flower [employer]
[2020-07-06] MEDS: Carvedilol 12.5 MG Tablet PO ×2 (10:09→17:31)
[2020-07-06] MEDS: Docusate Sodium 100 MG Capsule PO ×2 (10:09→21:32)
[2020-07-06] MEDS: Pantoprazole Sodium 20 MG Tablet PO (10:10)
[2020-07-06] MEDS: Aspirin E.C. 81 MG Tablet PO (10:10)
[2020-07-06] MEDS: Clopidogrel Bisulfate 75 MG Tablet PO (10:10)
[2020-07-06] MEDS: Venlafaxine XR 150 MG Capsule PO (10:11)
[2020-07-06] MEDS: Furosemide 40 MG/4 ML Vial IV (10:12)
[2020-07-06 11:05] LABS: Bacteria 0 SEEN /hpf (None Seen); Mucous, Urine 0 SEEN /hpf (<or=2+); White Blood Cells 0 SEEN /hpf (0-5)
[2020-07-06 11:15] LABS: Glucose, Dipstick Normal (Normal); Ketone-Dipstick Negative (Negative); Leukocyte Esterase-Dipstick Negative /ul (Negative); Nitrite-Dipstick Negative (Negative); Occult Blood-Urine 10 /ul (Negative); Protein-Dipstick Negative (Negative); Urine Bilirubin Dipstick Negative (Negative); Urine Clarity Clear (Clear); Urine Urobilinogen Normal (Normal)
[2020-07-06 11:23] LABS: Color, Urine SEE COMMENT BELOW (Yellow)
[2020-07-06 11:33] LABS: Squamous Epithelial Cells - UA 0-5 SEEN /hpf (5-10)
[2020-07-06 11:36] LABS: Red Blood Cells-Urine 0-5 SEEN /hpf (0-5)
--- NOTE | 2020-07-06 11:37 | CASEMGMT ---
RAMANDEEP called [facility] and left a message for Iveth requesting a return call. Physician indicated patient is confused and cannot make decisions. He said he spoke with her daughter about code status and she did not want to make any decisions. Apparently she did not know anything about patient's past medical history. RAMANDEEP will also call patient's daughter. RAMANDEEP called patient's daughter, November. RAMANDEEP asked if she has any siblings. She said she has a brother Benjamin. RAMANDEEP asked if she is not comfortable making medical decisions for her mom. She then asked if patient is okay. RAMANDEEP told her she is fine she is still on a regular heart floor and not ICU. RAMANDEEP explained to her that we did find out she has COVID and the doctor would just like to address code status before something would happen. She said she would have to talk with her brother. RAMANDEEP again reassured her that her mom is fine we just like to get things in place in case something would happen. She would talk with her brother and call RAMANDEEP back. Flower VALVERDE
--- NOTE | 2020-07-06 12:16 | EKG12_ITS ---
Test Reason : QT PROLONGATION Blood Pressure : / mmHG Vent. Rate : 073 BPM Atrial Rate : 070 BPM P-R Int : 000 ms QRS Dur : 084 ms QT Int : 530 ms P-R-T Axes : 000 080 -01 degrees QTc Int : 583 ms Sinus Vs Ectopic Atrial Rhythm with Occasional PVC's ST & T wave abnormality, consider anterior ischemia Prolonged QT Abnormal ECG Confirmed by DOMENICA LAUREN, JUNAID ([id number]), website/blog editor OBI ORELLANA ([id number]) on 07/12/2020 1:15:36 PM Referred By: Yoni Gamboa Confirmed By:JUNAID METZGER MD
--- NOTE | 2020-07-06 12:18 | PCM.PN.HOSP ---
Patient Problems: Active and Suspected Problems (Last Reviewed 02/03/20 @ 03:[address] Guru Kendrick MD) Respiratory failure (Acute) Acute sepsis (Acute) Pyelonephritis (Acute) NSTEMI (non-ST elevated myocardial infarction) (Acute) CHF (congestive heart failure) (Acute) COVID-19 (Acute) Reason for Visit: Follow-up for acute hypoxic respiratory failure secondary to COVID-19 pneumonia and acute on chronic systolic heart failure and non-STEMI Objective: Overnight, patient is spiked fever 102.8 Fahrenheit and subsequently tested for COVID-19 PCR which came positive. Patient was started on Decadron and remdesivir. Heart rate and blood pressure controlled. On 5 L of oxygen. Speech therapist is following. Patient was n.p.o. for presumed oropharyngeal dysphagia Seen in the presence of nurse and speech therapist. Physical exam General: Awake, answering few words. Answers in one-word simple questions. Cooperative HEENT: Atraumatic, PERRLA, EOMI, Normocephalic Oral: No Gingival or Mucosal Lesions/ Ulcerations. Takes food for long time in the mouth Neck: Supple, No JVD, Negative Carotid Bruits Lungs: Air entry diminished in bilateral lung bases. No crepitation/rhonchi. On 5 L of oxygen Cardiovascular: AICD. Sometimes paced rhythm on vessel manager. Sinus rhythm, Normal S1, Normal S2, LLSB murmur. Abdomen: Bowel Sounds Present, Soft, Non Tender, Non-Distended : Cloudy and yellow urine no renal angle tenderness. No suprapubic tenderness. Extremities: No edema, Capillary Refill Less than 3 Seconds Skin: No rashes, No breakdown Musculoskeletal: No Tenderness to Palpation of Joints or Extremities Neurological: Cranial nerves II-XII grossly intact, Deep Tendon Reflexes 2+/4 and Symmetrical, Neuro grossly intact Psych/Mental Status: Dementia. Vitals/I&O's: Vital Signs Temp Pulse Resp BP Pulse Ox 97.9 F 74 17 158/85 H 94 07/06/20 10:26 07/06/20 10:26 07/06/20 10:26 07/06/20 10:07/06/20 10:26 Oxygen Flow Rate (L/min) 5 Oxygen Delivery Method Nasal Cannula Weight: 125 lb 14.143 oz Body Mass Index (BMI) 23.0 Finger Stick Blood Glucose 82 Intake and Output for Last 24 Hours 07/04/20 07/05/20 07/06/20 23:59 23:59 23:59 Intake Total 1022.50 / 1022.50 752.54 / 752.54 250 / 250 Output Total 3250 / 3250 1850 / 1850 150 / 150 Balance -2227.50 / -2227.50 -1097.46 / -1097.46 100 / 100 Laboratory Results 07/05/20 12:17: Vancomycin Trough 14.2 07/06/20 00:45: COVID-19 (ELANA) Detected 07/06/20 06:10: WBC 7.2, RBC 3.91 L, Hgb 10.7 L, Hct 34.3 L, MCV 87.7, MCH 27.4, MCHC 31.2 L, RDW Std Deviation 46.4 H, RDW Coeff of Frantz 14.4, Plt Count 174, MPV 12.7 H, Immature Gran % (Auto) 0.600, Neut % (Auto) 86.2 H, Lymph % (Auto) 10.9 L, Hooker % (Auto) 2.2, Eos % (Auto) 0.0, Baso % (Auto) 0.1, Absolute Neuts (auto) 6.2, Absolute Lymphs (auto) 0.78 L, Nucleated RBC % 0 07/06/20 06:10: Sodium 147 H, Potassium 2.9 L, Chloride 111 H, Carbon Dioxide 27.0, Anion Gap 9, BUN 41 H, Creatinine 1.33 H, Estim Creat Clear Calc 34.42, Est GFR (MDRD) Af Amer 51 L, Est GFR (MDRD) Non-Af 42 L, BUN/Creatinine Ratio 30.8 H, Glucose 103, Calcium 8.2 L, Total Bilirubin 0.70, AST 1322 H, ALT 1585 H, Alkaline Phosphatase 128 H, Total Protein 6.7, Albumin 3.1 L, Globulin 3.6, Albumin/Globulin Ratio 0.9 07/06/20 10:57: Urine Color SEE COMMENT BELOW, Urine Clarity Clear, Urine pH 7.0, Ur Specific [place] 1.010, Urine Protein Negative, Urine Glucose (UA) Normal, Urine Ketones Negative, Urine Occult Blood 10 H, Urine Nitrite Negative, Urine Bilirubin Negative, Urine Urobilinogen Normal, Ur Leukocyte Esterase Negative, Urine RBC 0-5 SEEN, Urine WBC 0 SEEN, Ur Squamous Epith Cells 0-5 SEEN, Urine Bacteria 0 SEEN, Urine Mucus 0 SEEN Current Medications Acetaminophen (Acetaminophen 500 Mg Tablet) 500 mg PO Q6H PRN PRN PRN Reason: Pain 1-10 or Fever Acetaminophen (Acetaminophen 650 Mg Suppository) 650 mg RECTAL Q6H PRN PRN PRN Reason: Temp>100.7 Last Admin: 07/05/20 23:33 Dose: 650 mg Documented by: Albuterol/Ipratropium (Ipratropium/Albuterol Sulfate 3 Ml Ampul.Neb) 3 ml INHALATION Q6HWA.RT [facility] Last Admin: 07/06/20 07:23 Dose: 3 ml Documented by: Aspirin (Aspirin E.C. 81 Mg Tablet) 81 mg PO DAILY@0800 [facility] Last Admin: 07/06/20 10:10 Dose: 81 mg Documented by: Atorvastatin Calcium (Atorvastatin Calcium 80 Mg Tablet) 80 mg PO QHS [facility] Last Admin: 07/05/20 22:32 Dose: Not Given Documented by: Budesonide (Budesonide Respules 0.5 Mg/2 Ml Ampul.Neb.) 0.5 mg INHALATION BID.RT [facility] Last Admin: 07/06/20 07:23 Dose: 0.5 mg Documented by: Carvedilol (Carvedilol 12.5 Mg Tablet) 12.5 mg PO BIDCM [facility] Last Admin: 07/06/20 10:09 Dose: 12.5 mg Documented by: Clopidogrel Bisulfate (Clopidogrel Bisulfate 75 Mg Tablet) 75 mg PO DAILY [facility] Last Admin: 07/06/20 10:10 Dose: 75 mg Documented by: Dexamethasone Sodium Phosphate (Dexamethasone 10 Mg/Ml Vial) 6 mg IV DAILY [facility] Last Admin: 07/06/20 04:55 Dose: 6 mg Documented by: Docusate Sodium (Docusate Sodium 100 Mg Capsule) 100 mg PO BID [facility] Last Admin: 07/06/20 10:09 Dose: 100 mg Documented by: Furosemide (Furosemide 40 Mg/4 Ml Vial) 40 mg IV DAILY [facility] Last Admin: 07/06/20 10:12 Dose: 40 mg Documented by: Heparin Sodium (Porcine) (Heparin Injection (Vial) 5,000 Unit/Ml Vial) 5,000 unit SC Q8 [facility] Last Admin: 07/06/20 04:57 Dose: 5,000 unit Documented by: Sodium Chloride () 250 mls @ 15 mls/hr IV .[id number] PRN PRN Reason: Saline Flush Last Infusion: 07/05/20 11:36 Dose: 0 mls/hr Documented by: Sodium Chloride () 250 mls @ 15 mls/hr IV .[id number] PRN PRN Reason: Additional IVPB Infusion Ceftriaxone Sodium (Rocephin) 1 gm in 50 mls @ 100 mls/hr IV Q24@2200 [facility] Last Infusion: 07/05/20 23:04 Dose: Infused Documented by: Remdesivir 100 mg/ Sodium (Chloride) 250 mls @ 125 mls/hr IV Q24H [facility] Stop: 07/09/20 23:59 Mirtazapine (Mirtazapine 15 Mg Tablet) 15 mg PO QHS [facility] Last Admin: 07/05/20 22:33 Dose: Not Given Documented by: Pantoprazole Sodium (Pantoprazole Sodium 20 Mg Tablet) 20 mg PO DAILY [facility] Last Admin: 07/06/20 10:10 Dose: 20 mg Documented by: Potassium Chloride (Potassium Chloride 20 Meq Tablet) 40 meq PO DAILYCM [facility] Stop: 07/08/20 08:01 Last Admin: 07/06/20 10:09 Dose: 40 meq Documented by: Sodium Chloride (0.9% Saline Lock 10 Ml Syringe) 10 - 40 ml IV UD PRN PRN Reason: SALINE FLUSH Last Admin: 07/06/20 10:12 Dose: 20 ml Documented by: Venlafaxine HCl (Venlafaxine Xr 150 Mg Capsule) 150 mg PO DAILY [facility] Last Admin: 07/06/20 10:11 Dose: 150 mg Documented by: STROKE Vital Signs/Narrative: Vital Signs Temp Pulse Resp BP Pulse Ox 07/06/20 10:26 97.9 F 74 17 158/85 H 94 Medical Necessity - Tobacco Use Smoking Status: Former smoker Tobacco Use: Non-smoker Assessment/Plan All Active Problems (Last Reviewed 02/03/20 @ 03:[address] Guru Kendrick MD) Respiratory failure (Acute) Acute sepsis (Acute) Pyelonephritis (Acute) NSTEMI (non-ST elevated myocardial infarction) (Acute) CHF (congestive heart failure) (Acute) COVID-19 (Acute) CVA (cerebral vascular accident) (Resolved) This is a 64-year-old question female with multiple comorbidities was directly admitted to ICU from [facility] ER for acute kidney injury with creatinine 1.8, lactic acid 1.6 and UA suggestive of UTI. Patient also troponin 0 0.261. Chest x-ray is showed bilateral infiltrates suggestive of CHF versus pneumonia but admitting physician weighs more CHF exacerbation. BNP 4000. Covid test negative. Patient also had hyperkalemia and was given Kayexalate, insulin and glucose, IV Lasix, IV vancomycin and Zosyn and was sent to [facility] ICU. #1 acute on chronic hypoxic respiratory failure secondary to acute on chronic systolic congestive heart failure status post AICD: Patient was admitted in ICU. Had 1750 mill urine output yesterday. On Lasix 40 mg IV every 8 hourly. On CHF core measures. Patient has Huerta catheter. 07/05: Discussed with the binitrotoluene operator. I called patient's daughter Mrs. Mary Gaines [phone] to get more information about previous cardiac work-up. Her daughter said she has not seen binitrotoluene operator for many years and in PCP for last few years. She has been in the custodial for for 5 years has not seen PCP too. She is also not sure where she had PCI or CABG and AICD 07/06: Patient tested COVID-19 PCR positive after a spike of fever. ID consult. Repeat chest x-ray shows no major interval change. Patient was started on Decadron and Decadron at night. Remdesivir was discontinued as transaminases almost doubled after starting remdesivir. Discussed with ID. Continue Decadron. Continue Lasix 40 mg daily. #2 acute sepsis secondary to cystitis due to Proteus mirabilis, COVID-19 infection and GAIL from fluid shift/Lasix/CHF exacerbation: Initially on vancomycin and Zosyn. Antibiotic narrowed down to ceftriaxone based on the urine culture Proteus mirabilis more than 100,000 colonies. Kidney ultrasound shows mild atrophy of left kidney. Normal size of right kidney no hydronephrosis. Mild hypokalemia, potassium is getting replaced. Magnesium 1.9. Was 3.7. Her creatinine was 0.96 in February 2020. Increased to 1.48 mainly due to diuretic/hemodynamic fluid shift. Lasix dose decreased to 40 mg IV daily. 07/06: Chest x-ray is negative for pneumonia/infiltrative consolidation 3. Acute on chronic systolic congestive heart failure-patient's last echocardiogram in our records shows an EF of 30% in February 2020 2D echo was done on 07/04/2020 and suggestive of severe systolic heart failure with trivial MR, TR and valvular calcification. Not able to estimate RVSP. Interpretation Summary Severe segmental systolic dysfunction (see wall motion). The estimated ejection fraction is 25 %. There is moderate to severe mitral annular calcification. Extension of the mitral annular calcification onto the base of the posterior mitral valve leaflet. Trivial mitral valve insufficiency. Trivial tricuspid valve insufficiency. Mild focal aortic valve calcification. Trivial aortic valve insufficiency. 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 Admitted with creatinine 1.48 and proved 1.29. Chronic kidney disease by history-however, patient's last creatinine here at the hospital in February 2020 was 0.96. K was 6.7 in outside ER. Repeat K2.7 and potassium is getting replaced. 07/06: Potassium 2.9, creatinine slight improvement. 9. elevated troponin-possibly secondary to non-STEMI, troponins. Serial troponins 1.43, 1.41 and 0.682, decreasing trend. Patient on aspirin, atorvastatin, carvedilol, Plavix Other comorbidities include dyslipidemia, GERD, COPD, chronic debility secondary to CVA: Patient does not seem to be in acute COPD exacerbation. Multiple comorbidities complicates the present care and expect difficult and delay recovery Total time of the visit including total time spent in counseling or coordination of care, (more than 50% of the total time, spent in obtaining medical information from nurses and other ancillary care providers,explaining to the patient about labs, imaging, diagnosis and management), discussion with intelligence consultant, review of labs and imaging is 30 minutes. Laboratory Results 07/06/20 00:45: COVID-19 (ELANA) Detected 07/06/20 06:10: WBC 7.2, RBC 3.91 L, Hgb 10.7 L, Hct 34.3 L, MCV 87.7, MCH 27.4, MCHC 31.2 L, RDW Std Deviation 46.4 H, RDW Coeff of Frantz 14.4, Plt Count 174, MPV 12.7 H, Immature Gran % (Auto) 0.600, Neut % (Auto) 86.2 H, Lymph % (Auto) 10.9 L, Hooker % (Auto) 2.2, Eos % (Auto) 0.0, Baso % (Auto) 0.1, Absolute Neuts (auto) 6.2, Absolute Lymphs (auto) 0.78 L, Nucleated RBC % 0 07/06/20 06:10: Sodium 147 H, Potassium 2.9 L, Chloride 111 H, Carbon Dioxide 27.0, Anion Gap 9, BUN 41 H, Creatinine 1.33 H, Estim Creat Clear Calc 34.42, Est GFR (MDRD) Af Amer 51 L, Est GFR (MDRD) Non-Af 42 L, BUN/Creatinine Ratio 30.8 H, Glucose 103, Calcium 8.2 L, Total Bilirubin 0.70, AST 1322 H, ALT 1585 H, Alkaline Phosphatase 128 H, Total Protein 6.7, Albumin 3.1 L, Globulin 3.6, Albumin/Globulin Ratio 0.9 07/06/20 10:57: Urine Color SEE COMMENT BELOW, Urine Clarity Clear, Urine pH 7.0, Ur Specific [place] 1.010, Urine Protein Negative, Urine Glucose (UA) Normal, Urine Ketones Negative, Urine Occult Blood 10 H, Urine Nitrite Negative, Urine Bilirubin Negative, Urine Urobilinogen Normal, Ur Leukocyte Esterase Negative, Urine RBC 0-5 SEEN, Urine WBC 0 SEEN, Ur Squamous Epith Cells 0-5 SEEN, Urine Bacteria 0 SEEN, Urine Mucus 0 SEEN Clinical Impression(s) from Imaging Studies Chest X-Ray 07/04/20 05:55 IMPRESSION: Minimally increased interstitial markings most marked at the right lung base. There is no other significant interval change. Renal Ultrasound 07/05/20 05:55 IMPRESSION: Mild atrophy of the left kidney. Electronically Signed: Gamal Tom, at 11:53 EST , Service support , Inpatient E&M: [id number] [facility]
--- NOTE | 2020-07-06 15:13 | PCM.HP.ID ---
Problem List (1) COVID-19 Status: Acute Reason for Consult: covid Consulted by: Dr. Le History of Present Illness: The patient is a 64 year old F with h/o stroke, presented with dyspnea, hypoxia, encephalopathy. Pt unable to provide history or ROS. Covid (+), started on dex, remdesivir last night. - Medical History Past Medical History (Chronic Problems): Chronic Problems (Last Reviewed 02/03/20 @ 03:[address] Guru Kendrick MD) Acute on chronic systolic CHF (congestive heart failure) (Chronic) CAD (coronary artery disease) (Chronic) Cardiomyopathy (Chronic) Status post implantation of automatic cardioverter/defibrillator (AICD) (Chronic) Status post coronary artery bypass graft (Chronic) Coronary artery disease (Chronic) Stage III chronic kidney disease (Chronic) Depression (Chronic) Hyperlipidemia (Chronic) COPD (chronic obstructive pulmonary disease) (Chronic) GERD (gastroesophageal reflux disease) (Chronic) Chronic combined systolic and diastolic CHF (congestive heart failure) (Chronic) Allergies/Adverse Reactions: Allergies codeine Allergy (Verified 02/29/20 09:15) PT UNSURE OF REACTION diphenhydramine Allergy (Verified 02/29/20 09:15) PT UNSURE OF REACTION iodine Allergy (Verified 02/29/20 09:15) PT UNSURE OF REACTION Iodinated Contrast Media Adverse Reaction (Verified 02/29/20 12:23) PT UNSURE OF REACTION Home Medications: Ambulatory Orders Medication Instructions Recorded Acetaminophen [Tylenol] 500 mg PO Q6H PRN PRN 02/02/20 Aspirin E.C. [Ecotrin] 81 mg PO DAILY@0800 02/02/20 Carvedilol [Coreg] 6.25 mg PO BIDCM 02/02/20 Cetirizine HCl [Zyrtec] 10 mg PO QHS 02/02/20 Docusate Sodium [Colace] 100 mg PO BID 02/02/20 Fluticasone 44 Mcg [Flovent 44 Mcg] 2 puff INHALATION BID 02/02/20 Furosemide [Lasix] 20 mg PO DAILY 02/02/20 Guaifenesin [Mucinex] 600 mg PO BID 02/02/20 Mirtazapine [Remeron] 15 mg PO QHS 02/02/20 Oxybutynin [Ditropan] 5 mg PO TID 02/02/20 Pantoprazole Sodium [Protonix] 20 mg PO DAILY 02/02/20 Venlafaxine HCl [Venlafaxine HCl 150 mg PO DAILY 02/02/20 ER] Albuterol Sulfate [Ventolin Hfa] 2 puff INHALATION Q6H PRN 02/03/20 Benzocaine/Menthol [Cepacol Sore 1 each MM Q2H PRN #0 02/03/20 Throat Lozenge] Fluticasone 0.05% [Flonase Nasal 1 spray NASAL QHS 02/29/20 [place]] Ipratropium/Albuterol Sulfate 3 ml IH Q6H PRN 02/29/20 [Iprat-Albut 0.5-3(2.5) mg/3 ml] Tizanidine HCl 4 mg PO DAILY PRN 02/29/20 Atorvastatin Calcium [Lipitor] 80 mg PO QHS #0 03/02/20 Clopidogrel Bisulfate [Plavix] 75 mg PO DAILY #30 tab 03/02/20 Gabapentin 300 mg PO QHS 07/03/20 - Social History SMOKING STATUS:: Former smoker Vital Signs Temp Pulse Resp BP Pulse Ox 97.8 F 65 18 120/63 94 07/06/20 13:54 07/06/20 13:54 07/06/20 13:54 07/06/20 13:54 07/06/20 13:54 Oxygen Flow Rate (L/min) 5 Oxygen Delivery Method Nasal Cannula Weight: 57.1 kg Body Mass Index (BMI) 23.0 Finger Stick Blood Glucose 82 Laboratory Tests Past 24 Hrs 07/06/20 07/06/20 07/06/20 00:45 06:10 06:10 WBC 7.2 RBC 3.91 L Hgb 10.7 L Hct 34.3 L MCV 87.7 MCH 27.4 MCHC 31.2 L RDW Std Deviation 46.4 H RDW Coeff of Frantz 14.4 Plt Count 174 MPV 12.7 H Immature Gran % (Auto) 0.600 Neut % (Auto) 86.2 H Lymph % (Auto) 10.9 L [place] % (Auto) 2.2 Eos % (Auto) 0.0 Baso % (Auto) 0.1 Absolute Neuts (auto) 6.2 Absolute Lymphs (auto) 0.78 L Nucleated RBC % 0 Sodium 147 H Potassium 2.9 L Chloride 111 H Carbon Dioxide 27.0 Anion Gap 9 BUN 41 H Creatinine 1.33 H Estim Creat Clear Calc 34.42 Est GFR (MDRD) Af Amer 51 L Est GFR (MDRD) Non-Af 42 L BUN/Creatinine Ratio 30.8 H Glucose 103 Calcium 8.2 L Total Bilirubin 0.70 AST 1322 H ALT 1585 H Alkaline Phosphatase 128 H Total Protein 6.7 Albumin 3.1 L Globulin 3.6 Albumin/Globulin Ratio 0.9 Urine Color Urine Clarity Urine pH Ur Specific [place] Urine Protein Urine Glucose (UA) Urine Ketones Urine Occult Blood Urine Nitrite Urine Bilirubin Urine Urobilinogen Ur Leukocyte Esterase Urine RBC Urine WBC Ur Squamous Epith Cells Urine Bacteria Urine Mucus COVID-19 (ELANA) Detected 07/06/20 10:57 WBC RBC Hgb Hct MCV MCH MCHC RDW Std Deviation RDW Coeff of Frantz Plt Count MPV Immature Gran % (Auto) Neut % (Auto) Lymph % (Auto) [place] % (Auto) Eos % (Auto) Baso % (Auto) Absolute Neuts (auto) Absolute Lymphs (auto) Nucleated RBC % Sodium Potassium Chloride Carbon Dioxide Anion Gap BUN Creatinine Estim Creat Clear Calc Est GFR (MDRD) Af Amer Est GFR (MDRD) Non-Af BUN/Creatinine Ratio Glucose Calcium Total Bilirubin AST ALT Alkaline Phosphatase Total Protein Albumin Globulin Albumin/Globulin Ratio Urine Color SEE COMMENT BELOW Urine Clarity Clear Urine pH 7.0 Ur Specific [place] 1.010 Urine Protein Negative Urine Glucose (UA) Normal Urine Ketones Negative Urine Occult Blood 10 H Urine Nitrite Negative Urine Bilirubin Negative Urine Urobilinogen Normal Ur Leukocyte Esterase Negative Urine RBC 0-5 SEEN Urine WBC 0 SEEN Ur Squamous Epith Cells 0-5 SEEN Urine Bacteria 0 SEEN Urine Mucus 0 SEEN COVID-19 (ELANA) - Other Studies Radiology: [] reviewed Other Studies: [] Route of nutrition/ use of supplements: [] Nutritional Intake: [] IV Site: [] Huerta Catheter: [] - Physical Exam General: Confused, Lethargic HEENT: Atraumatic, PERRLA, EOMI Neck: Supple, No Nodes Lungs: Diminished Cardiovascular: Regular rate, Regular Rhythm Abdomen: Soft, Non Tender, Non-Distended Extremities: No edema Skin: No rashes IV Site: Peripheral, without redness Musculoskeletal: No Tenderness to Palpation of Joints or Extremities Neurological: Cranial nerves II-XII grossly intact - Assessment/Plan Antibiotics: [] Assessment/Plan: [] Active and Suspected Problems (Last Reviewed 02/03/20 @ 03:[address] Guru Kendrick MD) Respiratory failure (Acute) Acute sepsis (Acute) Pyelonephritis (Acute) NSTEMI (non-ST elevated myocardial infarction) (Acute) CHF (congestive heart failure) (Acute) covid with hypoxia - on dex, will continue. ALT of 950 last night, so remdesivir should not have been started. ALT higher today at 1500. Will stop remdesivir and check hep panel. On ceftriaxone for possible uti. Reviewed [facility] records, UA with heavy pyuria, but no ucx sent. Ucx sent here today. Last ucx in 02/20 with serratia, but does not have confirmed serratia uti here. Will check labs to follow ALT, check d-dimer in AM. Will follow, thank you, d/w Dr. Valencia
--- NOTE | 2020-07-06 18:13 | PN.CARD_ITS ---
Subjectve: The patient became febrile yesterday evening. She was evaluated by internal medicine. She underwent COVID-19 testing which was reported as positive. She has now been evaluated by infectious disease as well. She has now on medical management. Objective: Vital Signs Temp Pulse Resp BP Pulse Ox 97.8 F 71 16 111/61 93 07/06/20 17:30 07/06/20 17:30 07/06/20 17:30 07/06/20 17:30 07/06/20 17:30 Oxygen Flow Rate (L/min) 5 Oxygen Delivery Method Nasal Cannula Weight: 125 lb 14.143 oz Body Mass Index (BMI) 23.0 Finger Stick Blood Glucose 82 Intake and Output for Last 24 Hours 07/04/20 07/05/20 07/06/20 23:59 23:59 23:59 Intake Total 1022.50 / 1022.50 752.54 / 752.54 490 / 490 Output Total 3250 / 3250 1850 / 1850 850 / 850 Balance -2227.50 / -2227.50 -1097.46 / -1097.46 -360 / -360 General: No Acute Distress Lungs: Diminished Yusuf Bases Cardiovascular: Regular Rhythm, Premature Ectopic Beats, Normal S1, Normal S2 Abdomen: Bowel Sounds Present, Soft Extremities: No edema 07/06/20 06:10: WBC 7.2, RBC 3.91 L, Hgb 10.7 L, Hct 34.3 L, MCV 87.7, MCH 27.4, MCHC 31.2 L, Plt Count 174, MPV 12.7 H, Immature Gran % (Auto) 0.600, Neut % (A uto) 86.2 H, Lymph % (Auto) 10.9 L, [place] % (Auto) 2.2, Eos % (Auto) 0.0, Baso % (Auto) 0.1, Absolute Neuts (auto) 6.2, Nucleated RBC % 0 07/06/20 06:10: Sodium 147 H, Potassium 2.9 L, Chloride 111 H, Carbon Dioxide 27.0, Anion Gap 9, BUN 41 H, Creatinine 1.33 H, Est GFR (MDRD) Af Amer 51 L, Est GFR (MDRD) Non-Af 42 L, BUN/Creatinine Ratio 30.8 H, Glucose 103, Calcium 8.2 L, Total Bilirubin 0.70 07/06/20 10:57: Urine Color SEE COMMENT BELOW, Urine Clarity Clear, Urine pH 7.0, Ur Specific [place] 1.010, Urine Protein Negative, Urine Glucose (UA) Normal, Urine Ketones Negative, Urine Occult Blood 10 H, Urine Nitrite Negative, Urine Bilirubin Negative, Urine Urobilinogen Normal, Ur Leukocyte Esterase Negative, Urine RBC 0-5 SEEN, Urine WBC 0 SEEN Rhythm: Sinus rhythm; PVCs EKG: Sinus rhythm; T wave change potentially compatible with myocardial ischemia-anterior [place] cardiovascular note: 06/24/2019: Comments on patient with underlying CAD with ischemic mediated cardiomyopathy and not being a candidate for any aggressive cardiovascular procedures. Medical Necessity - Tobacco Use Smoking Status: Former smoker Tobacco Use: Non-smoker Assessment/Plan 1. Non-ST segment elevation HI The patient technically has a non-ST segment elevation HI based upon her cardiac enzyme findings. It is unclear whether, in light of the patient's multiple issues with respect to her fever and infectious disease symptoms, as to whether this was truly a primary event versus a secondary event from supply demand mismatch related to her secondary events. At the moment she appears to be without acute symptoms. Her cardiac enzymes have trended down. She has undergone evaluation with a transthoracic echocardiogram as noted. This was compared to a previous study which demonstrated similar type findings with respect to her overall left ventricular wall motion and systolic function and LVEF. At the moment she is going to continue to be monitored. She will continue medical management. 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 As noted based upon an [place] cardiovascular note from 06/24/2019 there was a similar comment that she was not a candidate for any aggressive cardiovascular p rocedures. Thus she is going to continue conservative medical management. 2. CHF: Acute on chronic systolic The patient does appear to have findings which would have been compatible with an element of acute on chronic systolic mediated CHF with her original presentation. At the moment after medical therapy she appears to be relatively calm with her underlying pulmonary status. She has been reassessed with respect to her ventricular wall motion and systolic function. Her echocardiogram is noted. At the present time she will be asked to continue medical management with subsequent adjustment of her diuretics as needed. 3. CAD status post CABG The patient has undergone CABG in the past. The details of which are unknown at this time. A request has been made to the [facility] staff to attempt to locate her previous cardiovascular history and studies for continuity of care. At the moment she will continue conservative medical management. 4. Ischemic mediated cardiomyopathy The patient appears to have a history of a diminished LV systolic function/LVEF. Thus she appears to be a candidate for concerns of acute on chronic systolic mediated CHF. She will continue medical management. 5. ICD The patient does appear to have a dual-chamber ICD in place. There is been no report of ICD discharge. An attempt will be made to locate previous records for continuity of care. Her ICD can be interrogated as needed. 6. Hyperlipidemia She will continue risk factor modification medical therapy as deemed appropriate. 7. COPD She does have history of COPD. She will continue evaluation care per internal medicine. 8. CVA She has had a CVA. It appears she has been left with right-sided deficits as well as an expressive aphasia. She does not vocalize at this time. She only minimally nods her head in a yes or no manner. It appears this has left her relatively sedentary in an ECF. Unfortunately her quality of life appears to be markedly diminished based upon this. This does play a role with respect to further invasive evaluation and care such as diagnostic cardiac catheterization studies, etc. 9. Pyelonephritis It appears from her initial H&P she was diagnosed with pyelonephritis. She has been on medical management. 10. Pneumonia There is also been concerned that she may have had pneumonia. Again she has been treated medically with IV antibiotics. She has undergone repeat testing for COVID-19. Her repeat test has been positive. She has been evaluated by infectious disease. 11. Sepsis Based upon her initial presentation she was diagnosed with sepsis thought related to her underlying infectious disease concerns. She is continue evaluation care per internal medicine. 12. Renal insufficiency She does have an element of renal insufficiency. This may be related to her multiple medical issues including her acute issues as well as her volume status changes, etc. This would also have to be monitored and taken into consideration if she were to go through any type of invasive evaluation requiring IV contrast related agents, etc. based upon concerns of IV contrast related nephropathy if she were such a candidate. This note was generated using a voice recognition system and there may be incorrect words, spelling or punctuation that were not noted when reviewing the office note prior to saving.
[2020-07-06] MEDS: Atorvastatin Calcium 80 MG Tablet PO (21:32)
[2020-07-06] MEDS: Ceftriaxone 1 GM/50 ML BAG IV (21:32)
--- NOTE | 2020-07-06 22:09 | PN_ITS ---
Progress Note Per patient's nurse, per discussion with Eder Hernandez (patient's daughter; phone #[phone]) and nurse manager of exhibitions and collections Winifred Grijalva patient's CODE STATUS should be changed to DNR CCA with no intubation. Hospitalist called Mary Gaines who indeed confirmed DNR CCA with no intubation. Orders placed. STROKE Vital Signs/Narrative: Vital Signs Temp Pulse Resp BP Pulse Ox 07/06/20 21:47 70 20 H 07/06/20 21:36 96.9 F L 67 18 110/56 L 96 07/06/20 19:00 67
--- NOTE | 2020-07-06 22:20 | NURSING ---
[facility] from [facility] says code status is full code. Jocelyn RN spoke w/ family regarding code status and they would like it changed. Pt's daughter spoke to her brother (pt's son). They would like it changed to DNRCCA without intubation. This RN spoke w/ Dr. Kendrick and he called the pt's daughter Mary Gaines to confirm code status. MD changed status to DNRCCA no intubation. RAYO Drew.
[2020-07-07] VITALS (8 sets, daily range): BP systolic 120–141; BP diastolic 63–65; PULSE 63–77; RESP 16–20; TEMP 35.2–36.6; O2SAT 90–95
[2020-07-07] MEDS: Heparin Injection (Vial) 5,000 UNIT/ML VIAL 5000 UNIT SC (05:23)
--- NOTE | 2020-07-07 05:55 | EKG12_ITS ---
Test Reason : AM EKG Blood Pressure : / mmHG Vent. Rate : 073 BPM Atrial Rate : 073 BPM P-R Int : 134 ms QRS Dur : 086 ms QT Int : 510 ms P-R-T Axes : 067 078 064 degrees QTc Int : 561 ms Sinus rhythm with occasional and consecutive Premature ventricular complexes Low voltage QRS Prolonged QT Abnormal ECG Confirmed by DOMENICA LAUREN, JUNAID ([id number]), sports editor OBI ORELLANA ([id number]) on 07/12/2020 1:38:35 PM Referred By: Yoni Gamboa Confirmed By:JUNAID METZGER MD
[2020-07-07 07:02] LABS: Hematocrit 37.9 % (37-47); Hemoglobin 11.4 g/dL (12.0-15.0); Mean Corp Hgb Conc 30.1 g/dL (32-36); Mean Corpuscular Volume 89.8 fL (81-99); Mean Platelet Vol. 12.8 fl (6.2-12.0); Platelet Count 212 K/mm3 (150-450); RBC Distribution Width CV 14.5 % (11.6-14.6); RBC Distribution Width SD 47.8 fl (35.1-43.9); Red Blood Count 4.22 M/mm3 (4.2-5.4); White Blood Count 8.2 K/mm3 (4.4-11.0)
[2020-07-07 07:33] LABS: ALB/GLOB Ratio 0.6 RATIO (0.9-2.4); AST(SGOT) 650 U/L (15-37); Alanine Aminotransfer ALT/SGPT 1270 U/L (13-56); Alkaline Phosphatase 136 U/L (45-117); Anion Gap 7 (5-15); BUN 48 mg/dL (7-18); BUN/Creat Ratio 35.3 RATIO (10-20); Calcium,Total 8.9 mg/dL (8.5-10.1); Chloride 114 mmol/L (98-107); Creatinine, Serum 1.36 mg/dL (0.55-1.02); EST Glomerular Filtration Rate 41 mL/min (>60); Est Glom Filt Rate - Afr Amer 50 mL/min (>60); Estimated Creatinine Clearance 33.66 ml/min; Globulin 4.8 g/dL (2.2-4.2); Glucose 137 mg/dL (74-106); Potassium 3.9 mmol/L (3.5-5.1); Protein, Total 7.8 g/dL (6.4-8.2); Sodium Level 151 mmol/L (136-145)
[2020-07-07] MEDS: Ipratropium/Albuterol Sulfate 3 ML AMPUL.NEB INHALATION ×2 (07:41→14:24)
[2020-07-07] MEDS: Budesonide Respules 0.5 MG/2 ML AMPUL.NEB. INHALATION (07:41)
--- NOTE | 2020-07-07 08:09 | PCM.PN.HOSP ---
Patient Problems: Active and Suspected Problems (Last Reviewed 02/03/20 @ 03:[address] Guru Kendrick MD) Respiratory failure (Acute) Acute sepsis (Acute) Pyelonephritis (Acute) NSTEMI (non-ST elevated myocardial infarction) (Acute) CHF (congestive heart failure) (Acute) COVID-19 (Acute) Objective: Overnight events have been noticed. Patient CODE STATUS is changed to DNR CCA with no intubation after talking to the patient's son by nighttime hospitalist. Patient D-dimer is elevated 3.20. Patient started on therapeutic dose of Eliquis. With risk of bleeding from triple anticoagulant Plavix is discontinued as patient also has non-STEMI. She has multiple comorbidities including coronary artery disease, CABG, AICD, chronic systolic heart failure, stroke with residual right hemiparesis and aphasia Vitals/I&O's: Vital Signs Temp Pulse Resp BP Pulse Ox 97.0 F L 69 18 131/65 H 90 07/07/20 03:50 07/07/20 07:39 07/07/20 03:50 07/07/20 03:50 07/07/20 07:39 Oxygen Flow Rate (L/min) 5 Oxygen Delivery Method Nasal Cannula Weight: 122 lb 5.705 oz Body Mass Index (BMI) 23.0 Finger Stick Blood Glucose 82 Intake and Output for Last 24 Hours 07/05/20 07/06/20 07/07/20 23:59 23:59 23:59 Intake Total 752.54 / 752.54 1020 / 1060 40 / 40 Output Total 1850 / 1850 1200 / 1350 400 / 400 Balance -1097.46 / -1097.46 -180 / -290 -360 / -360 Laboratory Results 07/06/20 10:57: Urine Color SEE COMMENT BELOW, Urine Clarity Clear, Urine pH 7.0, Ur Specific [place] 1.010, Urine Protein Negative, Urine Glucose (UA) Normal, Urine Ketones Negative, Urine Occult Blood 10 H, Urine Nitrite Negative, Urine Bilirubin Negative, Urine Urobilinogen Normal, Ur Leukocyte Esterase Negative, Urine RBC 0-5 SEEN, Urine WBC 0 SEEN, Ur Squamous Epith Cells 0-5 SEEN, Urine Bacteria 0 SEEN, Urine Mucus 0 SEEN 07/07/20 06:40: WBC 8.2, RBC 4.22, Hgb 11.4 L, Hct 37.9, MCV 89.8, MCH 27.0, MCHC 30.1 L, RDW Std Deviation 47.8 H, RDW Coeff of Frantz 14.5, Plt Count 212, MPV 12.8 H 07/07/20 06:40: Sodium 151 H, Potassium 3.9, Chloride 114 H, Carbon Dioxide 30.0, Anion Gap 7, BUN 48 H, Creatinine 1.36 H, Estim Creat Clear Calc 33.66, Est GFR (MDRD) Af Amer 50 L, Est GFR (MDRD) Non-Af 41 L, BUN/Creatinine Ratio 35.3 H, Glucose 137 H, Calcium 8.9, Total Bilirubin 0.50, AST 650 H, ALT 1270 H, Alkaline Phosphatase 136 H, Total Protein 7.8, Albumin 3.0 L, Globulin 4.8 H, Albumin/Globulin Ratio 0.6 L 07/07/20 06:40: D-Dimer Quant (PE/DVT) 3.20 H* 07/07/20 06:40: Hepatitis A IgM Ab Pending, Hep Bs Antigen Pending, Hep B Core IgM Ab Pending, Hepatitis C Ab (EIA) Pending Current Medications Acetaminophen (Acetaminophen 500 Mg Tablet) 500 mg PO Q6H PRN PRN PRN Reason: Pain 1-10 or Fever Acetaminophen (Acetaminophen 650 Mg Suppository) 650 mg RECTAL Q6H PRN PRN PRN Reason: Temp>100.7 Last Admin: 07/05/20 23:33 Dose: 650 mg Documented by: Albuterol/Ipratropium (Ipratropium/Albuterol Sulfate 3 Ml Ampul.Neb) 3 ml INHALATION Q6HWA.RT [facility] Last Admin: 07/07/20 07:41 Dose: 3 ml Documented by: Apixaban (Apixaban 5 Mg Tablet) 10 mg PO BID EVONNE Aspirin (Aspirin E.C. 81 Mg Tablet) 81 mg PO DAILY@0800 EVONNE Atorvastatin Calcium (Atorvastatin Calcium 80 Mg Tablet) 80 mg PO QHS [facility] Last Admin: 07/06/20 21:32 Dose: 80 mg Documented by: Budesonide (Budesonide Respules 0.5 Mg/2 Ml Ampul.Neb.) 0.5 mg INHALATION BID.RT [facility] Last Admin: 07/07/20 07:41 Dose: 0.5 mg Documented by: Carvedilol ([facility] 12.5 Mg [facility]t) [facility] Last Admin: 07/06/20 17:31 Dose: 12.5 mg Documented by: Dexamethasone Sodium Phosphate (Dexamethasone 10 Mg/Ml Vial) 6 mg IV DAILY [facility] Stop: 07/14/20 10:01 Last Admin: 07/06/20 04:55 Dose: 6 mg Documented by: Docusate Sodium (Docusate Sodium 100 Mg Capsule) 100 mg PO BID [facility] Last Admin: 07/06/20 21:32 Dose: 100 mg Documented by: Furosemide (Furosemide 40 Mg/4 Ml Vial) 40 mg IV DAILY [facility] Last Admin: 07/06/20 10:12 Dose: 40 mg Documented by: Sodium Chloride () 250 mls @ 15 mls/hr IV .[id number] PRN PRN Reason: Saline Flush Last Infusion: 07/05/20 11:36 Dose: 0 mls/hr Documented by: Sodium Chloride () 250 mls @ 15 mls/hr IV .[id number] PRN PRN Reason: Additional IVPB Infusion Ceftriaxone Sodium (Rocephin) 1 gm in 50 mls @ 100 mls/hr IV Q24@2200 [facility] Last Infusion: 07/06/20 22:13 Dose: Infused Documented by: Pantoprazole Sodium (Pantoprazole Sodium 20 Mg Tablet) 20 mg PO DAILY [facility] Last Admin: 07/06/20 10:10 Dose: 20 mg Documented by: Potassium Chloride (Potassium Chloride 20 Meq Tablet) [facility] Stop: 07/08/20 08:01 Last Admin: 07/06/20 10:09 Dose: 40 meq Documented by: Sodium Chloride (0.9% Saline Lock 10 Ml Syringe) 10 - 40 ml IV UD PRN PRN Reason: SALINE FLUSH Last Admin: 07/06/20 10:12 Dose: 20 ml Documented by: STROKE Vital Signs/Narrative: Vital Signs Pulse Pulse Ox 07/07/20 07:39 69 90 07/07/20 06:47 68 Medical Necessity - Tobacco Use Smoking Status: Former smoker Tobacco Use: Non-smoker Assessment/Plan All Active Problems (Last Reviewed 02/03/20 @ 03:[address] Guru Kendrick MD) Respiratory failure (Acute) Acute sepsis (Acute) Pyelonephritis (Acute) NSTEMI (non-ST elevated myocardial infarction) (Acute) CHF (congestive heart failure) (Acute) COVID-19 (Acute) CVA (cerebral vascular accident) (Resolved)
[2020-07-07] MEDS: Carvedilol 12.5 MG Tablet PO ×2 (09:15→17:14)
[2020-07-07] MEDS: Pantoprazole Sodium 20 MG Tablet PO (09:15)
[2020-07-07] MEDS: Docusate Sodium 100 MG Capsule PO (09:15)
[2020-07-07] MEDS: Aspirin E.C. 81 MG Tablet PO (09:16)
[2020-07-07] MEDS: dexAMETHasone 10 MG/ML Vial 6 MG IV (10:26)
[2020-07-07] MEDS: Furosemide 40 MG/4 ML Vial IV (10:27)
[2020-07-07] MEDS: APIXABAN 5 MG TABLET PO (10:27)
[2020-07-07] MEDS: 0.9% Saline Lock 10 ML Syringe IV (10:28)
--- NOTE | 2020-07-07 11:25 | PCM.TXEXTCAR ---
- Diet 07/06/20 10:45 Diet: Regular - General Food consistency:: Pureed Liquid Consistency:: Regular/Thin Is pt able to select menu?: No Diet Comments: TOTAL FEED,sips via straw one at a time, verbal cues to swallow - Routine Orders/Code Status Suppository Type: Dulcolax 10mg Suppository Frequency: Daily PRN Code Status: DNRCC - Therapies Weight Bearing: Weight bearing as tolerated Extremity Affected:: Right Lower - Allergies/Procedures Done in Hospital Allergies/Adverse Reactions: Allergies codeine Allergy (Verified 02/29/20 09:15) PT UNSURE OF REACTION diphenhydramine Allergy (Verified 02/29/20 09:15) PT UNSURE OF REACTION iodine Allergy (Verified 02/29/20 09:15) PT UNSURE OF REACTION Iodinated Contrast Media Adverse Reaction (Verified 02/29/20 12:23) PT UNSURE OF REACTION - Type of Care/Length of Stay Estimated LOS: More Than 30 Days Type of Care Needed: Intermediate Rehab Potential: Poor Prognosis: Poor - Additional Orders/Day of Discharge Additional Orders: Follow-up with [facility] hospice service in the assisted. Patient is DNR CC inpatient hospice care Day of Discharge: 07/07/20 - Dietary and Speech Recommendations Dietitian Recommendations/Changes: Continue regular diet as tolerated- consistency per [employer]. - Follow Up Care Primary Care Physician: Dino Crenshaw MD [Primary Care Provider] - Please follow up with your Primary Care Physician in: IN 1-2 WEEKS
--- NOTE | 2020-07-07 12:08 | CASEMGMT ---
Addendum entered by Flower Monk 07/07/20 12:17: SW called Hospice with referral and faxed information. Flower VALVERDE Original Note: Physician spoke with patient's daughter today about Hospice. She was in agreement with this plan. SW called patient's daughter and explained how the process works. SW told her she will be getting a phone call from Hospice. She asked how patient is doing. RAMANDEEP told asked if she would like the nurse to call her and she said she would. RAMANDEEP passed along this message to the RN. RAMANDEEP called [facility] and left a message for Iveth letting her know the plan. RAMANDEEP will work on Hospice referral. Flower VALVERDE
--- NOTE | 2020-07-07 12:26 | DS.PCM_ITS ---
Discharge Date and Diagnosis - Problem List Patient Problems: Active and Suspected Problems (Last Reviewed 02/03/20 @ 03:[address] Guru Kendrick MD) Respiratory failure (Acute) Acute sepsis (Acute) Pyelonephritis (Acute) NSTEMI (non-ST elevated myocardial infarction) (Acute) CHF (congestive heart failure) (Acute) COVID-19 (Acute) Date of Admission: 07/03/20 Date of Discharge: 07/07/20 - Primary Discharge Diagnosis Acute Problems: Active Problems (Last Reviewed 02/03/20 @ 03:[address] Guru Kendrick MD) Respiratory failure (Acute) Acute sepsis (Acute) Pyelonephritis (Acute) NSTEMI (non-ST elevated myocardial infarction) (Acute) CHF (congestive heart failure) (Acute) COVID-19 (Acute) - Secondary Discharge Diagnosis Chronic Problems: Chronic Problems (Last Reviewed 02/03/20 @ 03:[address] Guru Kendrick MD) Acute on chronic systolic CHF (congestive heart failure) (Chronic) CAD (coronary artery disease) (Chronic) Cardiomyopathy (Chronic) Status post implantation of automatic cardioverter/defibrillator (AICD) (Chronic) Status post coronary artery bypass graft (Chronic) Coronary artery disease (Chronic) Stage III chronic kidney disease (Chronic) Depression (Chronic) Hyperlipidemia (Chronic) COPD (chronic obstructive pulmonary disease) (Chronic) GERD (gastroesophageal reflux disease) (Chronic) Chronic combined systolic and diastolic CHF (congestive heart failure) (Chronic) Hospital Course and Treatment Operations: None Summary of Care Provided: The patient is a 64 year old F [] This is a 64-year-old question female with multiple comorbidities was directly admitted to ICU from [facility] ER for acute kidney injury with creatinine 1.8, lactic acid 1.6 and UA suggestive of UTI. Patient also troponin 0 0.261. Chest x-ray is showed bilateral infiltrates suggestive of CHF versus pneumonia but admitting physician weighs more CHF exacerbation. BNP 4000. Covid test negative. Patient also had hyperkalemia and was given Kayexalate, insulin and glucose, IV Lasix, IV vancomycin and Zosyn and was sent to [facility] ICU. #1 acute on chronic hypoxic respiratory failure secondary to acute on chronic systolic congestive heart failure status post AICD: Patient was admitted in ICU. Had 1750 mill urine output yesterday. On Lasix 40 mg IV every 8 hourly. On CHF core measures. Patient has Huerta catheter. Cartography Technician was consulted. [place] cardiovascular note from 06/24/2019 showed that patient not candidate for any aggressive cardiovascular procedure. She has very limited functional capacity based on residual right hemiparesis with expressive aphasia, oropharyngeal dysphagia sedentary lifestyle. Patient has coronary artery disease, CABG and AICD. Patient also had a spiking fever and Covid PCR positive on 07/05 night and started on Decadron. Remdesivir was started but discontinued seeing jump on the transaminases. Yesterday night, nighttime hospitalist discussed with the patient daughter and patient is DNR CC arrest with no intubation. Today I talked to the paint line production supervisor and he agrees that patient is DNR CC and hospice appropriate in view of functional and physical debility. Then, I talked to patient's daughter Mrs. Mary Gaines [phone] and explained the clinical condition, COVID-19 infection, poor prognosis and inability to any further cardiovascular procedure and she understood. She agreed for DNRCC with hospice care. retail planning manager for palliative/hospice care. Patient is going to half-way with inpatient hospice care. DNRCC papers signed. CODE STATUS changed to DNR CC comfort care Lasix dose 40 mg daily along with aspirin and Eliquis 2.5 mg p.o. twice daily prophylactic dose for 2 weeks for COVID-19 infection. After the completion of Eliquis, patient can be put on Plavix 75 mg daily for history of non-NSTEMI. #2 acute sepsis secondary to cystitis due to Proteus mirabilis, COVID-19 infection and GAIL from fluid shift/Lasix/CHF exacerbation: Initially on vancomycin and Zosyn. Antibiotic narrowed down to ceftriaxone based on the urine culture Proteus mirabilis more than 100,000 colonies. Kidney ultrasound shows mild atrophy of left kidney. Normal size of right kidney no hydronephrosis. Patient had mild hypokalemia secondary to Lasix and was replaced. Lasix dose was adjusted based on the increased creatinine and fluid shift. Patient does not have ankle edema. Repeat chest x-ray is negative for pneumonia or new infiltrative consolidation. 3. Acute on chronic systolic congestive heart failure-patient's last echocardiogram in our records shows an EF of 30% in February 2020 2D echo was done on 07/04/2020 and suggestive of severe systolic heart failure with trivial MR, TR and valvular calcification. Not able to estimate RVSP. Interpretation Summary Severe segmental systolic dysfunction (see wall motion). The estimated ejection fraction is 25 %. There is moderate to severe mitral annular calcification. Extension of the mitral annular calcification onto the base of the posterior mitral valve leaflet. Trivial mitral valve insufficiency. Trivial tricuspid valve insufficiency. Mild focal aortic valve calcification. Trivial aortic valve insufficiency. 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 Admitted with creatinine 1.48 and proved 1.29. Chronic kidney disease by history-however, patient's last creatinine here at the hospital in February 2020 was 0.96. K was 6.7 in outside ER. Repeat K2.7 and potassium is getting replaced. 12/05: Patient BUN/creatinine remained more or less stable 1.36.. 9. elevated troponin-possibly secondary to non-STEMI,Serial troponins 1.43, 1.41 and 0.682, decreasing trend. Patient on aspirin, atorvastatin, carvedilol. Hold Plavix while the patient is on Eliquis 2.5 mg twice daily as patient high risk of bleeding on triple anticoagulant. Other comorbidities include dyslipidemia, GERD, COPD, chronic debility secondary to CVA: Patient does not seem to be in acute COPD exacerbation. Multiple comorbidities complicates the present care and expect difficult and delay recovery Discharge medication reconciliation done. Discharge follow-up instructions completed. Discharge process discussed with the patient and all questions were answered to patient's satisfaction. Total time spent, exact 35 minutes on discharge meds reconciliation, examination, coordination of care with nurses and ancillary staff, review of imaging and blood test and discussion with the patient on follow-up instructions Microbiology Past 72 Hours 07/06/20 10:57 Urine, Catheterized Urine Culture - Preliminary Culture exhibits no growth. Laboratory Results 07/07/20 06:40: WBC 8.2, RBC 4.22, Hgb 11.4 L, Hct 37.9, MCV 89.8, MCH 27.0, MCHC 30.1 L, RDW Std Deviation 47.8 H, RDW Coeff of Frantz 14.5, Plt Count 212, MPV 12.8 H 07/07/20 06:40: Sodium 151 H, Potassium 3.9, Chloride 114 H, Carbon Dioxide 30.0, Anion Gap 7, BUN 48 H, Creatinine 1.36 H, Estim Creat Clear Calc 33.66, Est GFR (MDRD) Af Amer 50 L, Est GFR (MDRD) Non-Af 41 L, BUN/Creatinine Ratio 35.3 H, Glucose 137 H, Calcium 8.9, Total Bilirubin 0.50, AST 650 H, ALT 1270 H, Alkaline Phosphatase 136 H, Total Protein 7.8, Albumin 3.0 L, Globulin 4.8 H, Albumin/Globulin Ratio 0.6 L 07/07/20 06:40: D-Dimer Quant (PE/DVT) 3.20 H* 07/07/20 06:40: Hepatitis A IgM Ab Pending, Hep Bs Antigen Pending, Hep B Core IgM Ab Pending, Hepatitis C Ab (EIA) Pending Clinical Impression(s) from Imaging Studies Chest X-Ray 07/04/20 05:55 IMPRESSION: Minimally increased interstitial markings most marked at the right lung base. There is no other significant interval change. Renal Ultrasound 07/05/20 05:55 IMPRESSION: Mild atrophy of the left kidney. Electronically Signed: Gamal Negro, at 11:53 EST , Service support , Patient Problems: Active and Suspected Problems (Last Reviewed 02/03/20 @ 03:[address] Guru Kendrick MD) Respiratory failure (Acute) Acute sepsis (Acute) Pyelonephritis (Acute) NSTEMI (non-ST elevated myocardial infarction) (Acute) CHF (congestive heart failure) (Acute) COVID-19 (Acute) Objective: Overnight events have been noticed. Patient CODE STATUS is changed to DNR CCA with no intubation after talking to the patient's son by nighttime hospitalist. Patient D-dimer is elevated 3.20. Patient started on therapeutic dose of Eliquis. With risk of bleeding from triple anticoagulant Plavix is discontinued as patient also has non-STEMI. She has multiple comorbidities including coronary artery disease, CABG, AICD, chronic systolic heart failure, stroke with residual right hemiparesis and aphasia Physical exam General: Awake, blank look but eye contact present. Cooperative HEENT: Atraumatic, PERRLA, EOMI, Normocephalic Oral: No Gingival or Mucosal Lesions/ Ulcerations. Neck: Supple, No JVD, Negative Carotid Bruits Lungs: Air entry diminished in bilateral lung bases. No crepitation/rhonchi. On 5 L of oxygen Cardiovascular: AICD. Sometimes paced rhythm on cardiac cath rn. Sinus rhythm, Normal S1, Normal S2, LLSB murmur. Abdomen: Bowel Sounds Present, Soft, Non Tender, Non-Distended : Cloudy and yellow urine no renal angle tenderness. No suprapubic tenderness. Extremities: No edema, Capillary Refill Less than 3 Seconds Skin: No rashes, No breakdown Musculoskeletal: No Tenderness to Palpation of Joints or Extremities. Mild residual right-sided weakness from previous stroke but unable to assess muscle strength that patient does not follow command. Aphasia and oropharyngeal dysphagia. Neurological: Cranial nerves II-XII grossly intact, Deep Tendon Reflexes 2+/4 and Symmetrical, Neuro grossly intact Psych/Mental Status: Dementia. - Physical Exam Vitals/I&O's: Vital Signs Temp Pulse Resp BP Pulse Ox 97.8 F 77 17 141/63 H 95 07/07/20 09:07 07/07/20 09:07 07/07/20 09:07 07/07/20 09:07 07/07/20 09:07 Oxygen Flow Rate (L/min) 5 Oxygen Delivery Method Nasal Cannula Weight: 122 lb 5.705 oz Body Mass Index (BMI) 23.0 Finger Stick Blood Glucose 82 Intake and Output for Last 24 Hours 07/05/20 07/06/20 07/07/20 23:59 23:59 23:59 Intake Total 752.54 / 752.54 1020 / 1060 40 / 40 Output Total 1850 / 1850 1200 / 1350 400 / 400 Balance -1097.46 / -1097.46 -180 / -290 -360 / -360 Microbiology Past 72 Hours 07/06/20 10:57 Urine, Catheterized Urine Culture - Preliminary Culture exhibits no growth. Laboratory Results 07/07/20 06:40: WBC 8.2, RBC 4.22, Hgb 11.4 L, Hct 37.9, MCV 89.8, MCH 27.0, MCHC 30.1 L, RDW Std Deviation 47.8 H, RDW Coeff of Frantz 14.5, Plt Count 212, MPV 12.8 H 07/07/20 06:40: Sodium 151 H, Potassium 3.9, Chloride 114 H, Carbon Dioxide 30.0, Anion Gap 7, BUN 48 H, Creatinine 1.36 H, Estim Creat Clear Calc 33.66, Est GFR (MDRD) Af Amer 50 L, Est GFR (MDRD) Non-Af 41 L, BUN/Creatinine Ratio 35.3 H, Glucose 137 H, Calcium 8.9, Total Bilirubin 0.50, AST 650 H, ALT 1270 H, Alkaline Phosphatase 136 H, Total Protein 7.8, Albumin 3.0 L, Globulin 4.8 H, Albumin/Globulin Ratio 0.6 L 07/07/20 06:40: D-Dimer Quant (PE/DVT) 3.20 H* 07/07/20 06:40: Hepatitis A IgM Ab Pending, Hep Bs Antigen Pending, Hep B Core IgM Ab Pending, Hepatitis C Ab (EIA) Pending Current Medications Acetaminophen (Acetaminophen 500 Mg Tablet) 500 mg PO Q6H PRN PRN PRN Reason: Pain 1-10 or Fever Acetaminophen (Acetaminophen 650 Mg Suppository) 650 mg RECTAL Q6H PRN PRN PRN Reason: Temp>100.7 Last Admin: 07/05/20 23:33 Dose: 650 mg Documented by: Albuterol/Ipratropium (Ipratropium/Albuterol Sulfate 3 Ml Ampul.Neb) 3 ml INHALATION Q6HWA.RT [facility] Last Admin: 07/07/20 07:41 Dose: 3 ml Documented by: Apixaban (Apixaban 5 Mg Tablet) 5 mg PO BID [facility] Last Admin: 07/07/20 10:27 Dose: 5 mg Documented by: Aspirin (Aspirin E.C. 81 Mg Tablet) 81 mg PO DAILY [facility] Last Admin: 07/07/20 09:16 Dose: 81 mg Documented by: Atorvastatin Calcium (Atorvastatin Calcium 80 Mg Tablet) 80 mg PO QHS [facility] Last Admin: 07/06/20 21:32 Dose: 80 mg Documented by: Budesonide (Budesonide Respules 0.5 Mg/2 Ml Ampul.Neb.) 0.5 mg INHALATION BID.RT [facility] Last Admin: 07/07/20 07:41 Dose: 0.5 mg Documented by: Carvedilol (Carvedilol 12.5 Mg Tablet) [facility] Last Admin: 07/07/20 09:15 Dose: 12.5 mg Documented by: Dexamethasone Sodium Phosphate (Dexamethasone 10 Mg/Ml Vial) 6 mg IV DAILY [facility] Stop: 07/14/20 10:01 Last Admin: 07/07/20 10:26 Dose: 6 mg Documented by: Docusate Sodium (Docusate Sodium 100 Mg Capsule) 100 mg PO BID [facility] Last Admin: 07/07/20 09:15 Dose: 100 mg Documented by: Furosemide (Furosemide 40 Mg/4 Ml Vial) 40 mg IV DAILY [facility] Last Admin: 07/07/20 10:27 Dose: 40 mg Documented by: Sodium Chloride () 250 mls @ 15 mls/hr IV .[id number] PRN PRN Reason: Saline Flush Last Infusion: 07/05/20 11:36 Dose: 0 mls/hr Documented by: Sodium Chloride () 250 mls @ 15 mls/hr IV .[id number] PRN PRN Reason: Additional IVPB Infusion Ceftriaxone Sodium (Rocephin) 1 gm in 50 mls @ 100 mls/hr IV Q24@2200 [facility] Last Infusion: 07/06/20 22:13 Dose: Infused Documented by: Pantoprazole Sodium (Pantoprazole Sodium 20 Mg Tablet) 20 mg PO DAILY [facility] Last Admin: 07/07/20 09:15 Dose: 20 mg Documented by: Potassium Chloride (Potassium Chloride 20 Meq Tablet) [facility] Stop: 07/08/20 08:01 Last Admin: 07/07/20 09:15 Dose: 40 meq Documented by: Sodium Chloride (0.9% Saline Lock 10 Ml Syringe) 10 - 40 ml IV UD PRN PRN Reason: SALINE FLUSH Last Admin: 07/07/20 10:28 Dose: 40 ml Documented by: Home Medications: Medications to take at Discharge Acetaminophen [Tylenol] 500 mg PO Q6H PRN PRN 02/02/20 Aspirin E.C. [Ecotrin] 81 mg PO DAILY@0800 02/02/20 Carvedilol [Coreg] 6.25 mg PO BIDCM 02/02/20 Docusate Sodium [Colace] 100 mg PO BID 02/02/20 Fluticasone 44 Mcg [Flovent 44 Mcg] 2 puff INHALATION BID 02/02/20 Guaifenesin [Mucinex] 600 mg PO BID 02/02/20 Mirtazapine [Remeron] 15 mg PO QHS 02/02/20 Oxybutynin [Ditropan] 5 mg PO TID 02/02/20 Pantoprazole Sodium [Protonix] 20 mg PO DAILY 02/02/20 Albuterol Sulfate [Ventolin Hfa] 2 puff INHALATION Q6H PRN 02/03/20 Benzocaine/Menthol [Cepacol Sore Throat Lozenge] 1 each MM Q2H PRN #0 02/03/20 Fluticasone 0.05% [Flonase Nasal [place]] 1 spray NASAL QHS 02/29/20 Ipratropium/Albuterol Sulfate [Iprat-Albut 0.5-3(2.5) mg/3 ml] 3 ml IH Q6H PRN 02/29/20 Tizanidine HCl 4 mg PO DAILY PRN 02/29/20 Atorvastatin Calcium [Lipitor] 80 mg PO QHS #0 03/02/20 Gabapentin 300 mg PO QHS 07/03/20 Apixaban [Eliquis] 2.5 mg PO BID #30 tab 07/07/20 Dexamethasone [Decadron] 6 mg PO DAILY 8 Days #8 tab 07/07/20 Furosemide [Lasix] 40 mg PO DAILY #0 07/07/20 Potassium Chloride [K-Dur] 20 meq PO DAILYCM tab 07/07/20 Following Prescriptions Were Given to Patient: Dexamethasone [Decadron] 6 mg PO DAILY 8 Days #8 tab Apixaban [Eliquis] 2.5 mg PO BID #30 tab Primary Care Physician: Dino Crenshaw MD [Primary Care Provider] - Medical Necessity - Tobacco Use Smoking Status: Former smoker Tobacco Use: Non-smoker Meaningful Use Info Meaningful Use Diagnoses (Choose all that apply): CHF - AMI/Post PCI/Angioplasty Documented LVEF (%): 25 - CHF MELVINA/ARB ordered at discharge?: No Reason MELVINA/ARB not ordered?: Worsening renal function - DNRCC hospice comfort Documented LVEF (%): 25 Inpatient E&M: [id number] Disch Hosp
--- NOTE | 2020-07-07 13:01 | CASEMGMT ---
RAMANDEEP faxed all discharge information to [facility]. Flower FERRO MSW
--- NOTE | 2020-07-07 14:15 | PHA.DC.MR ---
Pharmacy Service has performed discharge medication reconciliation for this patient. The patient's discharge medication list was reviewed for discrepancies and discrepancies were resolved. Home Medications Acetaminophen [Tylenol] 500 mg PO Q6H PRN PRN 02/02/20 Aspirin E.C. [Ecotrin] 81 mg PO DAILY@0800 02/02/20 Carvedilol [Coreg] 6.25 mg PO BIDCM 02/02/20 Docusate Sodium [Colace] 100 mg PO BID 02/02/20 Fluticasone 44 Mcg [Flovent 44 Mcg] 2 puff INHALATION BID 02/02/20 Guaifenesin [Mucinex] 600 mg PO BID 02/02/20 Mirtazapine [Remeron] 15 mg PO QHS 02/02/20 Oxybutynin [Ditropan] 5 mg PO TID 02/02/20 Pantoprazole Sodium [Protonix] 20 mg PO DAILY 02/02/20 Albuterol Sulfate [Ventolin Hfa] 2 puff INHALATION Q6H PRN 02/03/20 Benzocaine/Menthol [Cepacol Sore Throat Lozenge] 1 each MM Q2H PRN #0 02/03/20 Fluticasone 0.05% [Flonase Nasal [place]] 1 spray NASAL QHS 02/29/20 Ipratropium/Albuterol Sulfate [Iprat-Albut 0.5-3(2.5) mg/3 ml] 3 ml IH Q6H PRN 02/29/20 Tizanidine HCl 4 mg PO DAILY PRN 02/29/20 Atorvastatin Calcium [Lipitor] 80 mg PO QHS #0 03/02/20 Gabapentin 300 mg PO QHS 07/03/20 Apixaban [Eliquis] 2.5 mg PO BID #30 tab 07/07/20 Dexamethasone [Decadron] 6 mg PO DAILY 8 Days #8 tab 07/07/20 Furosemide [Lasix] 40 mg PO DAILY #0 07/07/20 Potassium Chloride [K-Dur] 20 meq PO DAILYCM tab 07/07/20
--- NOTE | 2020-07-07 16:14 | CASEMGMT ---
RAMANDEEP faxed discharge information to Hospice. RAMANDEEP received a call from Itz with Hospice and SW can set up transportation. RAMANDEEP called [facility] and arranged for patient to get picked up via cot at 1830. RAMANDEEP notified RN, Itz with Hosp[facility], Iveth at [place] and will notify Mary her daughter. Plan: d/c back to [facility]. [facility] transported him via cot. Flower FERRO MSW
--- NOTE | 2020-07-07 16:35 | NURSING ---
report Polly from [facility] [phone]
--- NOTE | 2020-07-07 16:39 | NURSING ---
report called to [facility] [phone] nurse Eleonora Smith
[2020-07-08 08:09] LABS: HEPATITIS B SURFACE AG Negative (Negative); Hepatitis A IgM Antibody Negative (Negative); Hepatitis B Core AB IgM Negative (Negative)
[2020-07-10 04:26] LABS: Hep C Antibodies <0.1 s/co ratio (0.0-0.9)
== END 2020-07-07 19:14 | disposition hospice, inpatient (51) | DRG 720 ==
LOC: ICU 07-04 15:41 → PCU 07-04 17:37
PROVIDERS: Hospitalist; Internal Medicine Infectious Disease; Admitting Provider Internal Medicine; PCP Family Medicine; Referring Provider Internal Medicine; Visit Provider Internal Medicine
DX: A41.9 Sepsis, unspecified organism (principal); J96.21 Acute and chronic respiratory failure with hypoxia; U07.1 COVID-19; I50.23 Acute on chronic systolic (congestive) heart failure; N30.90 Cystitis, unspecified without hematuria; I25.5 Ischemic cardiomyopathy; I69.320 Aphasia following cerebral infarction; G81.91 Hemiplegia, unspecified affecting right dominant side; I63.9 Cerebral infarction, unspecified; E87.5 Hyperkalemia; E78.5 Hyperlipidemia, unspecified; K21.9 Gastro-esophageal reflux disease without esophagitis; J44.9 Chronic obstructive pulmonary disease, unspecified; R53.81 Other malaise; N18.30 Chronic kidney disease, stage 3 unspecified; Z79.899 Other long term (current) drug therapy; Z79.51 Long term (current) use of inhaled steroids; Z87.891 Personal history of nicotine dependence; R65.20 Severe sepsis without septic shock; I73.9 Peripheral vascular disease, unspecified; I21.4 Non-ST elevation (NSTEMI) myocardial infarction; N17.9 Acute kidney failure, unspecified; E87.6 Hypokalemia; Z95.810 Presence of automatic (implantable) cardiac defibrillator; Z95.1 Presence of aortocoronary bypass graft; B96.4 Proteus (mirabilis) (morganii) as the cause of diseases classified elsewhere; J12.89 Other viral pneumonia; A41.89 Other specified sepsis; Z66 Do not resuscitate; I69.991 Dysphagia following unspecified cerebrovascular disease; I69.951 Hemiplegia and hemiparesis following unspecified cerebrovascular disease affecting right dominant side; R13.12 Dysphagia, oropharyngeal phase
CPT/HCPCS: 36415; 71045; 76770; 80048; 80053; 80074; 80202; 81001; 83605; 83735; 84100; 84484; 85025; 85027; 85379; 87040; 87086; 87635; 92526; 92610; 93005; 93306; 94640; 97162; 97166; 97530; 97535; 99251; J7050; Q9957; A4216; C8929; G0463; J1940; J3490; U0002